=== PATIENT | female | born 1950 | race Caucasian/White ===

== ENCOUNTER 2018-10-21 06:47 | Inpatient (IN) ==
[2018-10-21 07:58] LABS: AGAP 11; ALBUMIN 3.5 g/dL (3.5-5.0); ALKALINE PHOSPHATASE 59 U/L (32-104); BUN 12 mg/dL (8-22); CALCIUM 8.6 mg/dL (8.8-10.2); CHLORIDE 91 mmol/L (98-107); COSMO 275; CREATININE 0.6 mg/dL (0.5-0.9); ESTIMATED GFR > 60; GLUCOSE 296 mg/dL (70-104); GOT 34 U/L (10-30); GPT 26 U/L (10-36); POTASSIUM 4.3 mmol/L (3.5-5.1); SODIUM 132 mmol/L (136-145); TCO2 29 mmol/L (25-35); TOTAL PROTEIN 6.2 g/dL (6.3-8.3)
[2018-10-21] MEDS ORDERED: TORADOL IV ONE (08:05)
[2018-10-21] MEDS ORDERED: NS 500 ML IV ONE (08:05)
[2018-10-21 08:20] LABS: BE 4.6 mmoll (-3.0-3.0); BLOOD TYPE ARTERIAL; HCO3-(ACT) 28.4 mmoll (20.0-26.0); METHB 1.6 % (0.0-1.5); O2HB 91.4 % (95.0-99.0); PCO2(98.6) 46 mmHg (35-45); PO2(98.6) 63 mmHg (60-100); SAMPLE BLOOD; SAO2 95.3 % (95.0-100.0); THB 12.4 g/dL (11.5-17.4); pH(98.6) 7.42 (7.35-7.45)
[2018-10-21 08:23] LABS: ALLEN TEST YES
--- NOTE | 2018-10-21 08:33 | PROVIDER DOCUMENTATION ---
HPI-General Adult - General Chief Complaint: Weakness Stated Complaint: Weakness Time Seen by Provider: 10/21/18 07:31 Source: patient, family Allergies/Adverse Reactions: Patient Allergies Allergy/AdvReac Type Severity Reaction Status Date / Time No Known Allergies Allergy Verified 10/21/18 07:52 Home Medications: Home Medication List Medication Instructions Recorded Confirmed Last Taken Type Aspirin [Aspir-Low] 81 mg PO HS 11/20/17 10/21/18 11/19/17 18:00 History Fenofibrate [Tricor] 48 mg PO HS 11/20/17 10/21/18 11/19/17 18:00 History Furosemide 40 mg PO DAILY 11/20/17 10/21/18 11/19/17 09:00 History Gabapentin 600 mg PO BID 11/20/17 10/21/18 11/19/17 21:00 History Metformin [Glucophage] 500 mg PO BID 11/20/17 10/21/18 11/19/17 18:00 History Metoprolol [Lopressor] 50 mg PO BID 11/20/17 10/21/18 11/19/17 18:00 History Omeprazole 20 mg PO BID 11/20/17 10/21/18 11/19/17 18:00 History Potassium Chloride 8 meq PO DAILY 11/20/17 10/21/18 11/19/17 09:00 History MVI/Folic Acid/Iron 1 each PO DAILY 11/20/17 10/21/18 11/19/17 09:00 History [Precare] Vitamin B Complex [B Complex] 1 each PO DAILY 11/20/17 10/21/18 11/19/17 09:00 History Duloxetine [Cymbalta] 60 mg PO DAILY 10/21/18 10/21/18 Unknown History Losartan [Cozaar] 50 mg PO DAILY 10/21/18 10/21/18 Unknown History Morphine Sulfate 200 mg PO BID 10/21/18 10/21/18 Unknown History Prednisone 3 tab PO DAILY 10/21/18 10/21/18 Unknown History - History of Present Illness -Gen Adult Nature of Presenting Problems: presents with confusional state of 2-3 days duration. hypoxic on arrival . diabetic pt on oral meds. c/o soreness in right lumbar back, moderate cough, sob , has mild fever. Associated Symptoms: reports: cough, fatigue, fever/chills, malaise, muscle aches. denies: shortness of breath, syncope, vomiting Similar Symptoms Previously?: No Recently seen or treated by another doctor?: No - Diabetes Related Context Context: reports: high blood sugar, change in mental status Review of Systems - Adult - REVIEW OF SYSTEMS - ADULT Constitutional: reports: no symptoms reported, fever, fatique Eyes: reports: no symptoms reported Ears, Nose, Mouth & Throat: reports: no symptoms reported Cardiovascular: reports: no symptoms reported Respiratory: reports: no symptoms reported, cough Gastrointestinal: reports: no symptoms reported. denies: vomiting Genitourinary: reports: no symptoms reported Musculoskeletal: reports: no symptoms reported, back pain Integumentary: reports: no symptoms reported Neurological: reports: no symptoms reported Psychiatric: reports: no symptoms reported Endocrine: reports: no symptoms reported, see HPI Hematologic/Lymphatic: reports: no symptoms reported Allergic/Immunologic: reports: no symptoms reported All Other Systems: Reviewed and Negative Past History - Adult - PAST MEDICAL HISTORY-ADULT Review of Records: reports: Old Records Reviewed, Nursing Assessment Review, Medications Reviewed, Social history reviewed & non-contributory. Major Childhood Illnesses: reports: denies history Cardiovascular: reports: CHF, HTN, hyperlipidemia, [place] Respiratory: reports: asthma, COPD Gastrointestinal: reports: denies history Obstetrical/Gynecological: reports: denies history Genitourinary: reports: denies history Musculoskeletal: reports: arthritis (RA), fibromyalgia, other (DJD) Neurological: reports: denies history Psychiatric: reports: anxiety Endocrine/Immune: reports: Diabetes Other Conditions: reports: denies history - PRIOR SURGERIES/PROCEDURES Surgical/Procedure History: reports: colonoscopy, orthopedic (extremity) - IMMUNIZATION STATUS Childhood Immunizations: See Nurse Assessment Flu Vaccine: See Nurse Assessment - FAMILY HISTORY Family History: reviewed, not pertinent Physical Exam-General - PHYSICAL EXAM-ADULT Initial Vital Signs Reviewed: Yes - CONSTITUTIONAL General Appearance: mild distress, anxious, other (mod confusion , mild anxious) - EYES Eyes: PERRL/EOMI, pink conjunctivae - HEAD, EARS, NOSE, MOUTH & THROAT HENMT: moist mucous membranes, normal ENT inspection - NECK Neck: full range of motion, supple - RESPIRATORY Respiratory: lungs clear, normal breath sounds, no respiratory distress - CARDIOVASCULAR Cardiovascular: regular rate, rhythm, no edema, no gallop, no JVD, no murmur - GASTROINTESTINAL (ABDOMEN) Abdominal Exam: non tender, soft - MUSCULOSKELETAL Back Exam: normal inspection, no CVA tenderness. 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 mental lethargic). negative: normal thought process Progress - PLAN OF CARE/RESULTS Progress/Plan/Lab Results: Vital Signs - 8 hr 10/21/18 06:47 10/21/18 08:07 Temperature 99.7 F H Pulse Rate 95 H Respiratory Rate 18 Blood Pressure 166/76 O2 Sat by Pulse Oximetry 94 L Laboratory Results - last 24 hr 10/21/18 10/21/18 10/21/18 07:04 07:23 07:23 Specimen Type Sample Site pH pCO2 pO2 HCO3 Base Excess Oxyhemoglobin ABG O2 Sat (Calculated) ABG O2 Saturation ABG Carboxyhemoglobin ABG Methemoglobin Carlos Test A-a O2 Difference Total Hemoglobin Lactate Blood Gas Modality FiO2 % Sodium Potassium Chloride Carbon Dioxide Anion Gap BUN Creatinine Estimated GFR/1.73 m2 BUN/Creatinine Ratio Glucose POC Glucose 264 H Calculated Osmolality Calcium Magnesium 1.4 L Total Bilirubin AST ALT Alkaline Phosphatase Troponin T < 0.010 Iui-D-Isqslrmyutk Pept Total Protein Albumin Globulin Albumin/Globulin Ratio Plasma Lactate 10/21/18 10/21/18 10/21/18 07:23 07:23 07:23 Specimen Type Sample Site pH pCO2 pO2 HCO3 Base Excess Oxyhemoglobin ABG O2 Sat (Calculated) ABG O2 Saturation ABG Carboxyhemoglobin ABG Methemoglobin Carlos Test A-a O2 Difference Total Hemoglobin Lactate Blood Gas Modality FiO2 % Sodium 132 L Potassium 4.3 Chloride 91 L Carbon Dioxide 29 Anion Gap 11 BUN 12 Creatinine 0.6 Estimated GFR/1.73 m2 > 60 BUN/Creatinine Ratio 20 Glucose 296 H POC Glucose Calculated Osmolality 275 Calcium 8.6 L Magnesium Total Bilirubin 0.70 AST 34 H ALT 26 Alkaline Phosphatase 59 Troponin T Ogi-Q-Xdlhympfneh Pept 512 H Total Protein 6.2 L Albumin 3.5 Globulin 3.0 Albumin/Globulin Ratio 1.0 Plasma Lactate 1.4 10/21/18 08:08 Specimen Type ARTERIAL Sample Site L RADIAL pH 7.42 pCO2 46 H pO2 63 HCO3 28.4 H Base Excess 4.6 H Oxyhemoglobin 91.4 L ABG O2 Sat (Calculated) 16.0 ABG O2 Saturation 95.3 ABG Carboxyhemoglobin 2.50 ABG Methemoglobin 1.6 H Carlos Test YES A-a O2 Difference 29.0 Total Hemoglobin 12.4 Lactate 1.00 Blood Gas Modality ROOM AIR FiO2 % 21.0 Sodium Potassium Chloride Carbon Dioxide Anion Gap BUN Creatinine Estimated GFR/1.73 m2 BUN/Creatinine Ratio Glucose POC Glucose Calculated Osmolality Calcium Magnesium Total Bilirubin AST ALT Alkaline Phosphatase Troponin T Cid-Q-Tkrzawkdcxk Pept Total Protein Albumin Globulin Albumin/Globulin Ratio Plasma Lactate Orders Category Date Time Status Cardiac Monitoring DIRECTED Care 10/21/18 07:31 Active Finger Stick Blood Sugar (ED) DIRECTED Care 10/21/18 07:31 Active Saline Loc NOW Care 10/21/18 07:31 Active CHEST-2 VIEWS [RAD] Stat Exams 10/21/18 07:33 Ordered ABG [RESP] Routine Lab 10/21/18 08:08 Completed AMMONIA [CHEM] Stat Lab 10/21/18 07:58 Received BLOOD CULTURE [BLDCUL] Stat Lab 10/21/18 07:32 Ordered CBC WITH ELECTRONIC DIFF [HEME] Stat Lab 10/21/18 07:38 Ordered COMPREHENSIVE METABOLIC PANEL [CHEM] Stat Lab 10/21/18 07:23 Completed D-DIMER [COAG] Stat Lab 10/21/18 07:23 Received LACTATE, PLASMA [CHEM] Stat Lab 10/21/18 07:23 Completed MAGNESIUM [CHEM] Stat Lab 10/21/18 07:23 Completed PRO B-NATRIURETIC PEPTIDE Stat Lab 10/21/18 07:23 Completed TROPONIN T Stat Lab 10/21/18 07:[address] W/POSS RFLX CULT [URINALYSIS] Stat Lab 10/21/18 07:33 Uncollected URINE DRUG SCREEN PL Stat Lab 10/21/18 07:33 Uncollected 0.9% Sodium Chloride Inj [Ns] 500 ml Med 10/21/18 08:05 Active IV 999 mls/hr Ketorolac [Toradol] Med 10/21/18 08:05 Discontinued 15 mg IV NOW ONE EKG [EKG] Stat Ther 10/21/18 07:32 Ordered ELEV D-DIM: CTA CHEST NL, BNP 512, FLU A + Result Diagrams: 10/21/18 07:23 - REASSESSMENT Reassessment #1 Time Reassessed: 09:56 Status: unchanged (FLU A+, D-DIM UP, : CTA CHEST) Reassessment #2 Status: improving Reassessment Comment: ORIENTED - PERSON, PLACE BUT NOT DATE OR SITUATION - XRAY 1 XRAY Study: Chest Impression: Normal, See EMR Report - CT/MRI 1 CT Study: Cervical Spine, Head Impression: See EMR Report Comparison with other Films: no changes CT Results: CTA CHEST:NO PTE - CONSULTS/PCP/HOSPITALIST Notification #1 *Consult/PCP/Hospitalist*: RODY Time Discussed: 11:40 Consult Disposition: Admit Departure - Departure Date of Disposition Decision: 10/21/18 Time of Disposition Decision: 11:40 DIAGNOSIS: Altered mental status, Hypoxemia, Influenza A, Hypomagnesemia, Weakness Disposition: ADMITTED INPATIENT 09 Certified Medical Emergency: Emergent Condition: Stable Referrals and Follow-Ups: None,PCP [Primary Care Provider] - - Critical Care Note This patient required my direct & personal management of CC.: No Attestation - Physician/ TAWNYA Attestation The physician spent face to face time with patient:: Yes Advanced Practice Provider documentation review:: Supervising physician onsite and consulted in the evaluation and care of this patient. The physician did have a face to face encounter with the patient.
[2018-10-21 08:41] LABS: MODALITY CANNULA
--- NOTE | 2018-10-21 09:01 | Diag Imaging Result Doc PS360 ---
CHEST-2 VIEWS - 10/21/2018 INDICATION: short of breath COMPARISON: 11/20/2017 FINDINGS: The lungs are normally expanded and clear. Heart size and mediastinal contours are normal. No pneumothorax or pleural effusion. IMPRESSION: Negative exam. Electronically signed by Eulogio Matos 10/21/2018 8:59 AM
[2018-10-21 09:09] LABS: BILIRUBIN URINE NEGATIVE (NEGATIVE); BLOOD URINE TRACE (NEGATIVE); CLARITY CLEAR (CLEAR); COLOR YELLOW; KETONE URINE TRACE mg/dL (NEGATIVE); LEUKOCYTES URINE TRACE (NEGATIVE); NITRITE URINE NEGATIVE (NEGATIVE); PH URINE 6.5; PROTEIN URINE 1+(30 mg/dL) mg/dL (NEGATIVE); UROBILINOGEN URINE 1 mg/dL
[2018-10-21 09:15] LABS: INFLUENZA A POSITIVE (NEGATIVE); INFLUENZA B NEGATIVE (NEGATIVE)
[2018-10-21 09:21] LABS: UR AMPHETAMINES QUAL NONE DETECTED (NONE DETECT); UR BARBITUATES QUAL NONE DETECTED (NONE DETECT); UR BENZODIAZEPIN QUAL PRESUMPTIVE POSITIVE (NONE DETECT); UR CANNABINOIDS QUAL NONE DETECTED (NONE DETECT); UR COCAINE QUAL NONE DETECTED (NONE DETECT); UR METHADONE QUAL NONE DETECTED (NONE DETECT); UR METHAMPHETAMINE QUAL NONE DETECTED (NONE DETECT); UR OPIATES QUAL PRESUMPTIVE POSITIVE (NONE DETECT); UR OXYCODONE QUAL NONE DETECTED (NONE DETECT); UR PCP QUAL NONE DETECTED (NONE DETECT); UR PROPOXYPHENE QUAL NONE DETECTED (NONE DETECT); UR TCA QUAL NONE DETECTED (NONE DETECT); URINE BACTERIA 1+ /HFP; URINE EPITHELIAL CELLS >10 /HPF (<10); URINE RBC <10 /HPF (<10); URINE SOURCE CLEAN CATCH; URINE WBC <10 /HPF (<10)
--- NOTE | 2018-10-21 10:28 | ED EKG INTERP ---
This chart was entered by Ledy Salas Scribe, acting as scribe for Abram Mike MD. EKG Interpretation - EKG Time of EKG reading by physician:: 07:14 EKG Read and Signed by:: Abram Mike EKG Interpretation (*Must complete 3 of following elements*): Abnormal Rate: 97 Rhythm: NSR QRS: other (Low volatage QRS. Cannot ruler out Anterior infract, age undetermined) MD Interval: normal Attestation - Physician/ TAWNYA Attestation The physician spent face to face time with patient:: Yes Advanced Practice Provider documentation review:: Supervising physician onsite and consulted in the evaluation and care of this patient. The physician did have a face to face encounter with the patient. This chart was documented by the indicated scribe, (Ledy Salas Scribe) and accurately reflects the services I performed and decisions made by me, Abram Mike MD, as attested by the provider's signature.
--- NOTE | 2018-10-21 11:02 | Diag Imaging Result Doc PS360 ---
EXAM: CT ANGIOGRM PULMONARY ARTERIES - 10/21/2018 HISTORY: SOB, CONFUSION, D-DIM TECHNIQUE: CT angiogram pulmonary arteries with intravenous contrast. Axial, 2-D coronal MIP, and 3-D MIP images are obtained. COMPARISON: None. FINDINGS: There are no filling defects identified in the pulmonary arteries. There is no indication of aortic dissection. There are atheromatous changes noted in the thoracic aorta similar to prior. There is stable left lower lobe calcified granuloma from old granulomatous disease. There is mild interstitial scarring/fibrosis, without substantial honeycombing, similar to prior. There is no consolidation, pleural effusion, or pneumothorax identified. There are a few mildly prominent mediastinal and right hilar lymph nodes which are more conspicuous compared to prior, although this could be exaggerated by differences in technical factors between the exams. There is prominence of the right thyroid lobe similar to prior. Included sections of the upper abdomen show fatty infiltration of the visualized liver similar to prior. IMPRESSION: No evidence of pulmonary embolism. Mild interstitial scarring/fibrosis. No discrete pneumonia. Mildly prominent right hilar and mediastinal lymph nodes. Atheromatous changes in the thoracic aorta, prominent right thyroid lobe, and fatty infiltration of visualized liver similar to prior. Electronically signed by Isaac Alcala 10/21/2018 10:59 AM
[2018-10-21] MEDS ORDERED: MAGNESIUM SULFATE 2 GM/S.W.I. 2 GM/50 ML IVPB IV ONE (11:15)
--- NOTE | 2018-10-21 12:04 | EKG Report ---
Test Performed on : 10/21/2018 07:11:39 AM Test Reason : confusion Blood Pressure : / mmHG Vent. Rate : 097 BPM Atrial Rate : 097 BPM P-R Int : 152 ms QRS Dur : 092 ms QT Int : 340 ms P-R-T Axes : 000 -18 027 degrees QTc Int : 431 ms Normal sinus rhythm. Low voltage QRS Cannot rule out Anterior infarct (cited on or before 23-FEB-2016) Abnormal ECG When compared with ECG of 20-NOV-2017 11:34, Questionable change in initial forces of Lateral leads Nonspecific T wave abnormality no longer evident in Anterolateral leads Unconfirmed Result
[2018-10-21] MEDS ORDERED: TYLENOL PO PRN ×2 (13:04→13:23)
[2018-10-21] MEDS ORDERED: ZOFRAN IV PRN (13:23)
[2018-10-21] MEDS ORDERED: DUONEB (A & A) INH PRN (13:41)
[2018-10-21] MEDS: MORPHINE IV PRN ×2 (14:15→20:45)
[2018-10-21] MEDS: TAMIFLU PO SCH ×2 (14:16→21:02)
[2018-10-21] MEDS: ROCEPHIN 1 GM in NS 50 ML IV SCH (14:16)
--- NOTE | 2018-10-21 15:28 | HISTORY AND PHYSICAL ---
PRIMARY CARE PHYSICIAN: Dr. Anurag Weathers MD CHIEF COMPLAINT: Weakness, shortness of breath, nonproductive cough, subjective fever, chills, and per family some confusion over the last 2 to 3 days. HISTORY OF PRESENT ILLNESS: Ms. Oropeza is a 67-year-old female with history of COPD, hypertension, hyperlipidemia, diabetes mellitus, arthritis, and coronary artery disease who reported to the ED with weakness, shortness of breath, and some mental status changes. Workup in the ED revealed flu positive. She had an elevated D-dimer. Pulmonary arteriogram was negative. Chest x-ray was negative for any pneumonia. She currently has mild fever at 99.3. CBC is still currently pending for unknown reason. She is mildly hyponatremic with elevated blood glucose at 286, magnesium of 1.4. She was given IV Mag. She was also noted to be hypoxemic upon arrival. However, the only oxygen saturation we have noted is after she was on nasal cannula. She will be admitted to the medical telemetry floor. We will symptomatically treat her for the flu, and recheck her Mag level in the morning as well as sodium. Continue with IV fluids. PAST MEDICAL HISTORY: 1. Diabetes mellitus. 2. COPD. 3. History of coronary artery disease. 4. Hypertension. 5. Arthritis. PAST SURGICAL HISTORY: 1. Colonoscopy. 2. Knee arthroscopy. SOCIAL HISTORY: No tobacco, alcohol or illicit drug use. ALLERGIES: No known drug allergies. HOME MEDICATIONS: 1. Aspirin 81 mg p.o. daily. 2. Cymbalta 60 mg p.o. daily. 3. Tricor 48 mg p.o. at bedtime. 4. Lasix 40 mg p.o. daily. 5. Gabapentin 600 mg p.o. b.i.d. 6. Cozaar 50 mg p.o. daily. 7. Glucophage 500 mg p.o. b.i.d. 8. Lopressor 50 mg p.o. b.i.d. 9. Morphine sulfate 200 mg p.o. b.i.d. 10. Prilosec 20 mg p.o. b.i.d. 11. Potassium chloride 8 mEq p.o. daily. 12. Prednisone 30 tabs p.o. daily. 13. vitamin 1 each p.o. daily. 14. Vitamin B complex 1 each p.o. daily. FAMILY HISTORY: Positive for father with congestive heart failure. REVIEW OF SYSTEMS: A 14 point review of systems completely negative except for those mentioned in HPI. Denies any nausea, vomiting, or diarrhea. No chest pain, shortness of breath with activity. No dysuria. No bright red or tarry stools. PHYSICAL EXAMINATION: VITAL SIGNS: Temperature 99.3 degrees, heart rate 98, respirations 22, blood pressure 115/77, and O2 is 99% on nasal cannula. GENERAL: Ms. Oropeza is a 67-year-old female, who was up in the bathroom on the medical floor having a bowel movement. She has put herself back to bed. She is in no acute distress, a little short of breath with activity. HEENT: Atraumatic, normocephalic. PERRL. NECK: Supple. Trachea midline. CV: S1, S2 appreciated. No murmurs, gallops, or rubs noted. RESPIRATORY: Lung sounds clear. Chest with nonlabored breathing. GI: Soft, nontender, and nondistended. Positive bowel sounds in 4 quadrants. Bilateral lower extremities negative for edema. No signs of clubbing or cyanosis. SKIN: Warm, dry, and intact. NEUROLOGIC: No focal deficits noted. Patient is alert and oriented. Follows commands. Moves all extremities. DIAGNOSTIC DATA: Chest x-ray negative exam. EKG normal sinus rhythm. Pulmonary arteriogram with no evidence of PE, mild interstitial scarring or fibrosis. No discrete pneumonia. Mild right hilar and mediastinal lymph nodes. Atheromatous changes in the thoracic aorta, prominent right thyroid lobe and fatty infiltration of the visualized liver similar to prior. DISCHARGE DIAGNOSES: 1. Flu A positive.. We will continue to treat her symptomatically. We will initiate Tamiflu 75 mg p.o. b.i.d. as well as started on IV ceftriaxone. She has 1+ bacteria in her urine. Again, we are awaiting WBCs. 2. Diabetes mellitus. We will continue diabetic diet. Pattern blood sugars with sliding scale insulin. 3. Hypoxemic as reported per ED. However, we do not have any hypoxemia reported in the computer. We will continue on supplemental O2. 4. Hypertension. Continue home medications. 5. Arthritis. Continue pain medications. 6. History of coronary artery disease. We will continue home medicines. 7. Elevated D-dimer. Patient was ruled out with PE with pulmonary arteriogram. 8. Mild hyponatremia. We will continue with IV fluids, and elevated D-dimer. We will follow up bilateral lower extremity Doppler's. 9. Hypomagnesium treated will recheck in am 10. Further recommendations to follow physician evaluation, laboratory, and diagnostic data. Dictated by ALBINO Downing for Preet Guerrero MD cc: Preet Guerrero MD MTDD
[2018-10-21] MEDS: DUONEB (A & A) INH SCH ×2 (15:30→20:04)
--- NOTE | 2018-10-21 16:39 | Extremity Venous Study ---
EXAM: Venous U/S Bilateral Legs - 10/21/2018 HISTORY: elevated d-dimer TECHNIQUE: Bilateral lower extremity Doppler venous ultrasound COMPARISON: None. FINDINGS: The deep veins of the bilateral lower extremities demonstrate flow, with compressibility and augmentation. There are no filling defects identified. IMPRESSION: No evidence of deep venous thrombosis in either lower extremity. Electronically signed by Isaac Alcala 10/21/2018 4:37 PM
[2018-10-21] MEDS: HUMALOG (PARKWAY) SUBQ SCH ×2 (18:54→22:04)
[2018-10-21] MEDS: PRILOSEC PO SCH (21:01)
[2018-10-21] MEDS: NEURONTIN PO SCH (21:02)
[2018-10-21] MEDS: ASPIRIN EC PO SCH (21:03)
[2018-10-21] MEDS: TRICOR PO SCH (21:04)
--- NOTE | 2018-10-21 21:39 | HISTORY AND PHYSICAL ---
ADDENDUM: Patient seen and examined by myself. Full note dictated and discussed with nurse practitioner. Patient presented to the hospital, subsequently diagnosed with flu A positive. Although she has been sick for 3 days and certainly is pushing the limits of Tamiflu, given the severity of her illness and the fact that she is not actually sure when her symptoms started, we will start her on Tamiflu and will start Rocephin as well. We will control her diabetes, place her on oxygen, and further orders as needed. cc: Preet Guerrero MD
[2018-10-21 22:36] LABS: BASO# 0.06 X1000 (0.0-0.2); BASO% 0.6 % (0.0-0.8); EOS# 0.27 X1000 (0.0-0.7); EOS% 2.7 % (0.0-10.0); HEMATOCRIT 38.1 % (37.0-47.0); HEMOGLOBIN 12.2 g/dL (12.0-16.0); IMM GRAN# 0.01 X1000 (0.0-0.04); IMM GRAN% 0.1 % (0.0-0.5); LYMPH# 1.32 X1000 (1.2-3.4); LYMPH% 13.3 % (20.5-51.1); MCH 27.2 PG (27-31); MONO# 1.04 X1000 (0.11-0.59); MONO% 10.5 % (1.7-9.3); MPV 10.5 FL (7.4-10.4); NEUT# 7.19 X1000 (1.4-6.5); NEUT% 72.8 % (42.2-75.2); PLT 253 X1000 (130-400); RBC 4.48 XMIL (4.2-5.4); RDW 13.2 % (11.5-14.5); WBC 9.89 X1000 (4.8-10.8)
[2018-10-22] MEDS: DUONEB (A & A) INH SCH ×7 (04:02→23:42)
[2018-10-22] MEDS ORDERED: XANAX PO PRN (06:31)
[2018-10-22] MEDS ORDERED: BUSPAR PO PRN (06:31)
[2018-10-22] MEDS: LOPRESSOR PO SCH ×3 (07:03→20:58)
[2018-10-22 07:27] LABS: BASO# 0.01 X1000 (0.0-0.2); BASO% 0.2 % (0.0-0.8); EOS# 0.09 X1000 (0.0-0.7); EOS% 1.8 % (0.0-10.0); HEMOGLOBIN 11.1 g/dL (12.0-16.0); IMM GRAN# 0.01 X1000 (0.0-0.04); IMM GRAN% 0.2 % (0.0-0.5); LYMPH# 1.39 X1000 (1.2-3.4); LYMPH% 28.5 % (20.5-51.1); MCH 26.7 PG (27-31); MCHC 31.7 g/dL (33-37); MCV 84.3 FL (81-99); MONO# 0.77 X1000 (0.11-0.59); MONO% 15.8 % (1.7-9.3); NEUT# 2.61 X1000 (1.4-6.5); NEUT% 53.5 % (42.2-75.2); PLT 204 X1000 (130-400); RBC 4.15 XMIL (4.2-5.4); WBC 4.88 X1000 (4.8-10.8)
--- NOTE | 2018-10-22 07:31 | Diag Imaging Result Doc PS360 ---
EXAM: CHEST-PORTABLE - 10/22/2018 HISTORY: follow up TECHNIQUE: Portable chest COMPARISON: 11/18/2018 FINDINGS: Heart size appears in the the upper range of normal. There is mild interstitial scarring/fibrosis. There is no dense consolidation, substantial pleural effusion, or pneumothorax identified. IMPRESSION: Mild interstitial scarring/fibrosis. No discrete acute changes. Electronically signed by Isaac Alcala 10/22/2018 7:28 AM
[2018-10-22 07:52] LABS: AGAP 11; BUN 6 mg/dL (8-22); CALCIUM 8.4 mg/dL (8.8-10.2); CHLORIDE 98 mmol/L (98-107); COSMO 281; CREATININE 0.4 mg/dL (0.5-0.9); ESTIMATED GFR > 60; GLUCOSE 266 mg/dL (70-104); MAGNESIUM 1.7 mg/dL (1.5-2.7); POTASSIUM 3.8 mmol/L (3.5-5.1); SODIUM 137 mmol/L (136-145); TCO2 28 mmol/L (25-35)
[2018-10-22] MEDS: HUMALOG (PARKWAY) SUBQ SCH ×4 (08:05→20:59)
[2018-10-22] MEDS: MORPHINE IV PRN ×4 (08:20→20:58)
[2018-10-22] MEDS: PRILOSEC PO SCH ×2 (08:20→20:58)
[2018-10-22] MEDS: ZOFRAN IV PRN ×3 (08:21→16:05)
[2018-10-22] MEDS: CYMBALTA PO SCH (10:23)
[2018-10-22] MEDS: TAMIFLU PO SCH ×2 (10:23→20:58)
[2018-10-22] MEDS: PREDNISONE PO SCH (10:23)
[2018-10-22] MEDS: NEURONTIN PO SCH ×2 (10:24→20:58)
[2018-10-22] MEDS: COZAAR PO SCH (10:24)
[2018-10-22] MEDS: KLOR-CON PO SCH (10:24)
[2018-10-22] MEDS: LASIX PO SCH (10:24)
[2018-10-22] MEDS: ROCEPHIN 1 GM in NS 50 ML IV SCH (14:04)
[2018-10-22] MEDS: MYCOSTATIN SUSP PO SCH ×2 (16:05→20:58)
[2018-10-22] MEDS: TRICOR PO SCH (20:58)
[2018-10-22] MEDS: ASPIRIN EC PO SCH (20:58)
--- NOTE | 2018-10-23 00:35 | PROGRESS NOTE ---
DATE: 10/22/2018 SUBJECTIVE: Patient notes that overall she is feeling a little bit better. She is still having cough and congestion, still having some diarrhea but notes that she has had diarrhea off and on for the past year or so. Denies any abdominal pain. Denies any recent fevers. Notes that her muscle aches are improving. PHYSICAL EXAMINATION: Vital Signs: T-max 100.8 degrees, T current 99 degrees, pulse 102 to 117, BP 122/58. General: Patient is awake, alert. She is very pleasant to talk with. She is in much less distress today than she was yesterday. HEENT: Normocephalic. Neck: Supple. Cardiovascular: Regular rate. No murmurs. Chest: Relatively clear and unlabored. Abdomen: Soft, nondistended, nontender. Extremities: Moves all extremities. ASSESSMENT: 1. Flu A positive. 2. Diabetes. 3. Hypoxemia. 4. Hypertension. 5. Chronic diarrhea. 6. Arthritis. 7. Known coronary artery disease. PLAN: We will continue to follow. Continue Tamiflu. Hopefully home over the next 1 or 2 days. cc: Preet Guerrero MD
[2018-10-23] MEDS: DUONEB (A & A) INH SCH ×6 (03:28→22:43)
[2018-10-23] MEDS: PRILOSEC PO SCH ×2 (06:36→20:18)
[2018-10-23] MEDS: HUMALOG (PARKWAY) SUBQ SCH ×4 (06:36→23:17)
[2018-10-23] MEDS: MORPHINE IV PRN ×3 (06:42→20:19)
[2018-10-23] MEDS ORDERED: VANCOMYCIN IV PER PHARMACY MISC SCH (07:15)
[2018-10-23] MEDS ORDERED: VANCOMYCIN 2,500 MG in NS 500 ML IV ONE (08:00)
[2018-10-23] MEDS: KLOR-CON PO SCH (09:16)
[2018-10-23] MEDS: PREDNISONE PO SCH ×2 (09:16→09:19)
[2018-10-23] MEDS: CYMBALTA PO SCH (09:17)
[2018-10-23] MEDS: TAMIFLU PO SCH ×2 (09:17→20:19)
[2018-10-23] MEDS: COZAAR PO SCH (09:17)
[2018-10-23] MEDS: LASIX PO SCH (09:17)
[2018-10-23] MEDS: NEURONTIN PO SCH ×2 (09:17→20:18)
[2018-10-23] MEDS: GLUCOPHAGE PO SCH ×2 (09:17→17:51)
[2018-10-23] MEDS: LOPRESSOR PO SCH ×2 (09:20→20:19)
[2018-10-23] MEDS: MYCOSTATIN SUSP PO SCH ×4 (09:20→20:18)
[2018-10-23] MEDS: ABREVA CREAM TOP SCH ×2 (17:46→23:17)
[2018-10-23] MEDS: ASPIRIN EC PO SCH (20:18)
[2018-10-23] MEDS: TRICOR PO SCH (20:19)
--- NOTE | 2018-10-23 22:27 | PROGRESS NOTE ---
DATE: 10/23/2018 SUBJECTIVE: Patient overall notes that she is feeling better, having less cough and congestion, less diarrhea although notes that she has chronic diarrhea. Denies any fevers or chills currently. PHYSICAL EXAMINATION: Vital Signs: T-max 97.8, pulse 78, respiratory 20, BP 103/48. General: Patient is awake. She is in no current respiratory distress. Very pleasant to talk with. HEENT: Normocephalic. Neck: Supple. CARDIOVASCULAR: Regular rate. No murmurs. Chest: Clear, nonlabored. Abdomen: Soft. Extremities: Moves all extremities. Neurologic: No changes. Skin: Warm, dry, no rashes. ASSESSMENT: 1. Influenza type A. 2. Gram-positive cocci in her urine. 3. Diabetes. 4. Hypoxic respiratory failure, improved. 5. Hypertension. 6. Chronic diarrhea. PLAN: We will continue patient in the hospital. We will await final urine culture results. Hopefully, she can discharge home over the next day or two. cc: Preet Guerrero MD
[2018-10-24] MEDS ORDERED: VANCOMYCIN 2,000 MG in NS 500 ML IV SCH (02:00)
[2018-10-24] MEDS: DUONEB (A & A) INH SCH ×4 (03:54→16:29)
[2018-10-24] MEDS: MORPHINE IV PRN ×2 (04:00→09:42)
[2018-10-24] MEDS: PRILOSEC PO SCH (06:33)
[2018-10-24] MEDS: HUMALOG (PARKWAY) SUBQ SCH ×2 (06:35→12:33)
[2018-10-24 07:56] VITALS: BP 134/55
[2018-10-24] MEDS: CYMBALTA PO SCH (09:40)
[2018-10-24] MEDS: LOPRESSOR PO SCH (09:41)
[2018-10-24] MEDS: GLUCOPHAGE PO SCH (09:41)
[2018-10-24] MEDS: LASIX PO SCH (09:41)
[2018-10-24] MEDS: MYCOSTATIN SUSP PO SCH ×2 (09:41→16:07)
[2018-10-24] MEDS: NEURONTIN PO SCH (09:41)
[2018-10-24] MEDS: PREDNISONE PO SCH (09:41)
[2018-10-24] MEDS: COZAAR PO SCH (09:42)
[2018-10-24] MEDS: TAMIFLU PO SCH (09:42)
[2018-10-24] MEDS: KLOR-CON PO SCH (09:42)
[2018-10-24] MEDS: ABREVA CREAM TOP SCH ×2 (09:48→16:07)
[2018-10-24] MEDS ORDERED: AMOXIL PO SCH (15:00)
--- NOTE | 2018-10-25 01:26 | DISCHARGE SUMMARY ---
ADMISSION DATE: 10/21/2018 DISCHARGE DATE: 10/24/2018 DISCHARGE DIAGNOSES: 1. Sepsis, resolved. 2. Diarrhea, improved. 3. Enterococcus urinary tract infection, sensitive to penicillin. 4. Flu A positive, improved. 5. Diabetes. 6. Hypoxic respiratory failure, acute, resolved. 7. Hypertension. CONSULTATIONS: None. PROCEDURES: None. BRIEF HOSPITAL COURSE: The patient is a 67-year-old female who thankfully has overall improved quite well. She currently is in no respiratory distress. She is feeling better. Notes that she is still having some mild diarrhea, but states this is chronic for her. States it is improved. She will continue to follow up with her primary care. Discussed with patient that she does have the flu and needs to continue Tamiflu for the next 3 days at home. She also has Enterococcus urinary tract infection. We will continue penicillin at home for this. Thankfully, she is feeling better and will be discharged home. DISPOSITION: Patient will be discharged home. She will follow up in 1 week to recheck her labs. We will continue antibiotics, Tamiflu and breathing treatments as needed. Greater than 30 minutes was spent in total care. cc: Preet Guerrero MD
== END 2018-10-24 16:30 | disposition left against medical advice (07) | DRG 871 ==
LOC: P.ED 06:47 → INTOOBSV 12:35 → OBSVTOIN 12:35 → P.MEDSURG 12:35
PROVIDERS: ATTEND Family Medicine
CPT/HCPCS: 71010; 71020; 71045; 71046; 71275; 80048; 80053; 80104; 80301; 80305; 81001; 82140; 82805; 82948; 83605; 83735; 83880; 84484; 85025; 85379; 87040; 87077; 87088; 87186; 87275; 87276; 87804; 93005; 93970; 94640; 94761; 96361; 96365; 96375; 99285; A9270; G0431; G0434; G0477; J0696; J1815; J1885; J2270; J2405; J3370; J3475; J7040; J7506; J7512; Q9967; XXXXX

== ENCOUNTER 2019-02-14 05:47 | Inpatient (IN) ==
[2019-02-14] MEDS ORDERED: DUONEB (A & A) INH ONE (06:08)
--- NOTE | 2019-02-14 06:45 | PROVIDER DOCUMENTATION ---
HPI-Respiratory General - General Chief Complaint: Generalized Pain Stated Complaint: PALPITATIONS Time Seen by Provider: 02/14/19 06:16 Allergies/Adverse Reactions: Patient Allergies Allergy/AdvReac Type Severity Reaction Status Date / Time No Known Allergies Allergy Verified 10/21/18 07:52 Home Medications: Home Medication List Medication Instructions Recorded Confirmed Last Taken Type Aspirin [Aspir-Low] 81 mg PO HS 11/20/17 02/14/19 11/19/17 18:00 History Fenofibrate [Tricor] 48 mg PO HS 11/20/17 02/14/19 11/19/17 18:00 History Furosemide 40 mg PO DAILY 11/20/17 02/14/19 11/19/17 09:00 History Gabapentin 600 mg PO BID 11/20/17 02/14/19 11/19/17 21:00 History Metformin [Glucophage] 500 mg PO TID 11/20/17 02/14/19 11/19/17 18:00 History Metoprolol [Lopressor] 50 mg PO BID 11/20/17 02/14/19 11/19/17 18:00 History Omeprazole 40 mg PO DAILY@0600 11/20/17 02/14/19 11/19/17 18:00 History Potassium Chloride 8 meq PO DAILY 11/20/17 10/21/18 11/19/17 09:00 History Alprazolam 1 mg PO BID 10/21/18 02/14/19 Unknown History Duloxetine [Cymbalta] 60 mg PO DAILY 10/21/18 02/14/19 Unknown History Losartan [Cozaar] 50 mg PO DAILY 10/21/18 02/14/19 Unknown History Prednisone 15 mg PO DAILY 10/21/18 02/14/19 Unknown History Hydrocodone Bit/Acetaminophen 1 tab PO TID PRN PRN 02/14/19 02/14/19 Unknown History [Hydrocodon-Acetaminophn 10325] - History of Present Illness-Resp Nature of Presenting Problem: complaining of shortness of breath last night. now aching all over, patient was coughing with flu like symptoms aching and weakness, chest tightness and fever. Quality of Pain: reports: aching Severity in ED: reports: moderate Onset/Duration: reports: gradual, last night Timing: reports: still present Cough Quality/Degree: reports: moderate Modifying Factors: improves with: albuterol inhaler, albuterol nebulizer Associated Symptoms: reports: cough, muscle/bodyaches, shortness of breath Similar Symptoms Previously?: Yes Review of Systems - Adult - REVIEW OF SYSTEMS - ADULT Constitutional: reports: sherley. denies: fever Eyes: reports: no symptoms reported Ears, Nose, Mouth & Throat: reports: no symptoms reported Cardiovascular: reports: no symptoms reported Respiratory: reports: see HPI, chronic cough, cough, pleurisy, shortness of breath Gastrointestinal: reports: no symptoms reported Genitourinary: reports: no symptoms reported Musculoskeletal: reports: no symptoms reported Integumentary: reports: no symptoms reported Neurological: reports: no symptoms reported Psychiatric: reports: no symptoms reported Endocrine: reports: no symptoms reported Hematologic/Lymphatic: reports: no symptoms reported Allergic/Immunologic: reports: no symptoms reported Past History - Adult - PAST MEDICAL HISTORY-ADULT Review of Records: reports: Nursing Assessment Review Major Childhood Illnesses: reports: denies history Cardiovascular: reports: CHF, HTN, hyperlipidemia, [place] Respiratory: reports: asthma, COPD Gastrointestinal: reports: denies history Obstetrical/Gynecological: reports: denies history Genitourinary: reports: denies history Musculoskeletal: reports: arthritis (RA), fibromyalgia, other (DJD) Neurological: reports: denies history Psychiatric: reports: anxiety Endocrine/Immune: reports: Diabetes Other Conditions: reports: denies history - PRIOR SURGERIES/PROCEDURES Surgical/Procedure History: reports: colonoscopy, orthopedic (extremity) - IMMUNIZATION STATUS Childhood Immunizations: See Nurse Assessment Flu Vaccine: See Nurse Assessment - FAMILY HISTORY Family History: reviewed, not pertinent Physical Exam-General - PHYSICAL EXAM-ADULT Initial Vital Signs Reviewed: Yes - CONSTITUTIONAL General Appearance: alert - EYES Eyes: PERRL/EOMI - HEAD, EARS, NOSE, MOUTH & THROAT HENMT: normocephalic/atraumatic - NECK Neck: non-tender, supple - RESPIRATORY Respiratory: respiratory distress, prolonged expiration - CARDIOVASCULAR Cardiovascular: no edema, no gallop, no JVD, tachycardia - GASTROINTESTINAL (ABDOMEN) Abdominal Exam: non tender, soft - LYMPHATIC Lymphatic: no adenopathy - MUSCULOSKELETAL Back Exam: normal inspection, no CVA tenderness, no vertebral tenderness Extremity: normal range of motion, non-tender, normal gait, normal inspection, no pedal edema - SKIN Integumentary: normal color, warm/dry - NEUROLOGIC Neurologic: operational communication chief II-XII nml as tested, grossly normal - PSYCHIATRIC Psych/Mental Status: normal mood/affect Progress - PLAN OF CARE/RESULTS Progress/Plan/Lab Results: Laboratory Results - last 24 hr 02/14/19 02/14/19 02/14/19 06:58 06:58 06:58 WBC 18.34 H RBC 4.57 Hgb 13.3 Hct 39.6 MCV 86.7 MCH 29.1 MCHC 33.6 RDW Std Deviation 13.6 Plt Count 222 MPV 11.3 H Immature Gran % (Auto) 0.2 Neut % (Auto) 65.9 Lymph % (Auto) 21.3 [place] % (Auto) 9.2 Eos % (Auto) 3.1 Baso % (Auto) 0.3 Immature Gran # (Auto) 0.04 Neut # (Auto) 12.08 H Lymph # (Auto) 3.91 H [place] # (Auto) 1.69 H Eos # (Auto) 0.56 Baso # (Auto) 0.06 PT INR PTT (Actin FS) Sodium 133 L Potassium 4.3 Chloride 92 L Carbon Dioxide 29 Anion Gap 13 BUN 12 Creatinine 0.6 Estimated GFR/1.73 m2 > 60 BUN/Creatinine Ratio 20 Glucose 217 H Calculated Osmolality 273 Calcium 9.6 Total Bilirubin 0.70 AST 47 H ALT 31 Alkaline Phosphatase 78 Creatine Kinase Troponin T Total Protein 7.2 Albumin 4.0 Globulin 3.0 Albumin/Globulin Ratio 1.0 Plasma Lactate Cancelled 02/14/19 02/14/19 02/14/19 06:58 06:58 06:58 WBC RBC Hgb Hct MCV MCH MCHC RDW Std Deviation Plt Count MPV Immature Gran % (Auto) Neut % (Auto) Lymph % (Auto) [place] % (Auto) Eos % (Auto) Baso % (Auto) Immature Gran # (Auto) Neut # (Auto) Lymph # (Auto) [place] # (Auto) Eos # (Auto) Baso # (Auto) PT 12.4 INR 0.88 PTT (Actin FS) 27.6 Sodium Potassium Chloride Carbon Dioxide Anion Gap BUN Creatinine Estimated GFR/1.73 m2 BUN/Creatinine Ratio Glucose Calculated Osmolality Calcium Total Bilirubin AST ALT Alkaline Phosphatase Creatine Kinase 47 Troponin T < 0.010 Total Protein Albumin Globulin Albumin/Globulin Ratio Plasma Lactate 02/14/19 06:58 WBC RBC Hgb Hct MCV MCH MCHC RDW Std Deviation Plt Count MPV Immature Gran % (Auto) Neut % (Auto) Lymph % (Auto) [place] % (Auto) Eos % (Auto) Baso % (Auto) Immature Gran # (Auto) Neut # (Auto) Lymph # (Auto) [place] # (Auto) Eos # (Auto) Baso # (Auto) PT INR PTT (Actin FS) Sodium Potassium Chloride Carbon Dioxide Anion Gap BUN Creatinine Estimated GFR/1.73 m2 BUN/Creatinine Ratio Glucose Calculated Osmolality Calcium Total Bilirubin AST ALT Alkaline Phosphatase Creatine Kinase Troponin T Total Protein Albumin Globulin Albumin/Globulin Ratio Plasma Lactate 2.5 H Orders Category Date Time Status Admit - [facility] Routine AdmDCTranf 02/14/19 09:19 Active Activity - Bed Rest with BRP ORDERED Care 02/14/19 09:19 Active Cardiac Monitoring DIRECTED Care 02/14/19 07:29 Active IV Insertion ORDERED Care 02/14/19 07:29 Active Notify MD of + Sepsis Screen NOW Care 02/14/19 07:29 Active Notify Physician As Ordered Care 02/14/19 07:29 Active Oxygen Therapy- ED Nursing DIRECTED Care 02/14/19 06:07 Completed Saline Loc NOW Care 02/14/19 06:38 Active Vital Signs Order ARRIVAL TO ROOM Care 02/14/19 09:19 Active Z-Document. for Tele Applied ORDERED Care 02/14/19 09:19 Active Regular Diet Diet 02/14/19 09:19 Active CHEST-PORTABLE [RAD] Stat Exams 02/14/19 06:39 Completed ABG [RESP] Routine Lab 02/14/19 06:45 Completed BLOOD CULTURE [BLDCUL] Stat Lab 02/14/19 06:54 Results CBC WITH DIFF [HEME] Stat Lab 02/14/19 06:58 Completed CK PROFILE [SP CHEM] Stat Lab 02/14/19 06:58 Completed COMPREHENSIVE METABOLIC PANEL [CHEM] Stat Lab 02/14/19 06:58 Completed LACTATE, PLASMA [CHEM] Lab 02/14/19 11:45 Completed LACTATE, PLASMA [CHEM] Lab 02/14/19 14:25 Completed LACTATE, PLASMA [CHEM] Q3H Lab 02/14/19 06:58 Completed PROTIME WITH INR [COAG] Stat Lab 02/14/19 06:58 Completed PTT [COAG] Stat Lab 02/14/19 06:58 Completed TROPONIN T Stat Lab 02/14/19 06:[address] W/POSS RFLX CULT [URINALYSIS] Stat Lab 02/14/19 10:14 Completed 0.9% Sodium Chloride Inj [Ns] 1,000 ml Med 02/14/19 07:46 Discontinued IV 999 mls/hr 0.9% Sodium Chloride Inj [Ns] 1,000 ml Med 02/14/19 09:19 Discontinued IV As Directed mls/hr Albuterol 2.5MG/Ipratrop 0.5MG [Duoneb (A & A)] Med 02/14/19 06:08 Discontinued 3 ml INH NOW ONE CefTRIAXONE [Rocephin] 1 gm Med 02/14/19 06:46 Discontinued 0.9% Sodium Chloride Inj [Ns] 50 ml IV NOW Methylprednisolone Sod Succ [Solu-Medrol] Med 02/14/19 06:46 Discontinued 125 mg IV NOW ONE Aerosol Treatments Routine Oth 02/14/19 06:08 Completed Aerosol Treatments Routine Oth 02/14/19 09:19 Completed Aerosol Treatments Stat Oth 02/14/19 06:07 Completed Aerosol Treatments Stat Oth 02/14/19 06:08 Completed Aerosol Treatments Stat Oth 02/14/19 09:19 Completed Asthma/COPD (Adult) Stat Oth 02/14/19 06:07 Completed Oxygen Device Stat Oth 02/14/19 07:29 Completed Oxygen Device Stat Oth 02/14/19 09:19 Completed Telemetry [OM.EQ] Routine Oth 02/14/19 09:19 Completed EKG [EKG] Routine Ther 02/14/19 08:01 Draft Transfer/Admit Order [TRANSFER] Routine Transfer 02/14/19 08:01 Completed Result Diagrams: 02/15/19 06:03 02/15/19 06:03 - EKG 1 Time of EKG reading by physician:: 08:38 EKG Read and Signed by:: Jacob Guo EKG Interpretation (*Must complete 3 of following elements*): Normal Rate: 100 Rhythm: sinus [place]: left QRS: normal LA Interval: normal ST Wave: normal - XRAY 1 XRAY Study: Chest Impression: Abnormal (fibrosis) - CHANGE OF SHIFT REPORT (ED Provider) 1 Report Given and Care Transferred to:: Dr Guo Time of Transfer: 07:00 Items Pending: Labs, XRAY Results Departure - Departure Date of Disposition Decision: 02/14/19 Time of Disposition Decision: 09:00 DIAGNOSIS: COPD exacerbation Disposition: ADMITTED INPATIENT 09 Certified Medical Emergency: Emergent Condition: Poor - Critical Care Note This patient required my direct & personal management of CC.: No Attestation - Physician/ TAWNYA Attestation Patient care was provided by Advanced Practice Provider:: No The physician spent face to face time with patient:: Yes Advanced Practice Provider documentation review:: Supervising physician onsite and consulted in the evaluation and care of this patient. The physician did have a face to face encounter with the patient.
[2019-02-14] MEDS ORDERED: SOLU-MEDROL IV ONE (06:46)
[2019-02-14] MEDS ORDERED: ROCEPHIN 1 GM in NS 50 ML IV ONE (06:46)
[2019-02-14 06:58] LABS: BE 4.9 mmoll (-3.0-3.0); BLOOD TYPE ARTERIAL; HCO3-(ACT) 28.5 mmoll (20.0-26.0); METHB 1.4 % (0.0-1.5); O2(CT) 17.2 mL/dL (15.0-23.0); PCO2(98.6) 41 mmHg (35-45); PO2(98.6) 55 mmHg (60-100); SAMPLE BLOOD; SAO2 92.9 % (95.0-100.0); THB 13.7 g/dL (11.5-17.4)
[2019-02-14 07:01] LABS: ALLEN TEST YES; MODALITY ROOM AIR; pH(98.6) 7.46 (7.35-7.45)
[2019-02-14 07:02] LABS: O2HB 89.5 % (95.0-99.0)
--- NOTE | 2019-02-14 07:31 | Diag Imaging Result Doc PS360 ---
EXAM: CHEST-PORTABLE - 02/14/2019 HISTORY: shortness of breath TECHNIQUE: Portable chest COMPARISON: 10/22/2018 FINDINGS: Heart size appears normal. Inspiration is mildly shallow. There is mild interstitial fibrosis/scarring similar to prior. There are no other acute changes identified. IMPRESSION: Mildly shallow inspiration. Mild interstitial scarring/fibrosis. No other acute changes. Electronically signed by Isaac Alcala 02/14/2019 7:29 AM
[2019-02-14 07:38] LABS: AGAP 13; BUN 12 mg/dL (8-22); CHLORIDE 92 mmol/L (98-107); COSMO 273; CREATININE 0.6 mg/dL (0.5-0.9); ESTIMATED GFR > 60; GLUCOSE 217 mg/dL (70-104); POTASSIUM 4.3 mmol/L (3.5-5.1); SODIUM 133 mmol/L (136-145); TCO2 29 mmol/L (25-35)
[2019-02-14 07:39] LABS: ALKALINE PHOSPHATASE 78 U/L (32-104); CALCIUM 9.6 mg/dL (8.8-10.2); GOT 47 U/L (10-30); GPT 31 U/L (10-36); TOTAL PROTEIN 7.2 g/dL (6.3-8.3)
[2019-02-14] MEDS ORDERED: NS 1,000 ML IV ONE ×2 (07:46→09:19)
[2019-02-14 07:50] LABS: BASO# 0.06 X1000 (0.0-0.2); BASO% 0.3 % (0.0-0.8); EOS# 0.56 X1000 (0.0-0.7); EOS% 3.1 % (0.0-10.0); HEMATOCRIT 39.6 % (37.0-47.0); HEMOGLOBIN 13.3 g/dL (12.0-16.0); IMM GRAN# 0.04 X1000 (0.0-0.04); IMM GRAN% 0.2 % (0.0-0.5); LYMPH# 3.91 X1000 (1.2-3.4); LYMPH% 21.3 % (20.5-51.1); MCH 29.1 PG (27-31); MCHC 33.6 g/dL (33-37); MCV 86.7 FL (81-99); MONO# 1.69 X1000 (0.11-0.59); MONO% 9.2 % (1.7-9.3); MPV 11.3 FL (7.4-10.4); NEUT# 12.08 X1000 (1.4-6.5); NEUT% 65.9 % (42.2-75.2); PLT 222 X1000 (130-400); RBC 4.57 XMIL (4.2-5.4); RDW 13.6 % (11.5-14.5); WBC 18.34 X1000 (4.8-10.8)
[2019-02-14 07:52] LABS: INR 0.88; PROTIME 12.4 Seconds (11.0-16.0)
[2019-02-14 07:53] LABS: PTT 27.6 Seconds (22.3-41.8)
[2019-02-14] MEDS ORDERED: TYLENOL PO PRN ×2 (09:19→09:23)
[2019-02-14] MEDS ORDERED: ZOFRAN IV PRN (09:23)
--- NOTE | 2019-02-14 10:39 | EKG Report ---
Test Performed on : 02/14/2019 08:05:11 AM Test Reason : emboli Blood Pressure : / mmHG Vent. Rate : 100 BPM Atrial Rate : 100 BPM P-R Int : 178 ms QRS Dur : 086 ms QT Int : 338 ms P-R-T Axes : 080 -21 028 degrees QTc Int : 436 ms Normal sinus rhythm. Septal infarct (cited on or before 23-FEB-2016) Abnormal ECG When compared with ECG of 21-OCT-2018 07:11, No significant change was found Unconfirmed Result
[2019-02-14 10:41] LABS: BILIRUBIN URINE NEGATIVE (NEGATIVE); BLOOD URINE NEGATIVE (NEGATIVE); KETONE URINE NEGATIVE (NEGATIVE); LEUKOCYTES URINE NEGATIVE (NEGATIVE); NITRITE URINE NEGATIVE (NEGATIVE); PROTEIN URINE NEGATIVE (NEGATIVE); SP GRAVITY URINE 1.005; UROBILINOGEN URINE NORMAL
[2019-02-14 10:42] LABS: CLARITY CLEAR (CLEAR); COLOR YELLOW; URINE SOURCE CLEAN CATCH; URINE WBC <10 /HPF (<10)
[2019-02-14] MEDS: DUONEB (A & A) INH SCH ×4 (11:18→22:47)
[2019-02-14] MEDS ORDERED: XANAX PO SCH ×2 (11:30)
[2019-02-14] MEDS ORDERED: DUONEB (A & A) INH SCH (11:30)
[2019-02-14] MEDS: NORCO-10 PO PRN ×3 (11:33→23:21)
[2019-02-14] MEDS: HUMALOG (PARKWAY) SUBQ SCH ×4 (14:12→20:28)
[2019-02-14] MEDS: SOLU-MEDROL IV SCH ×2 (14:26→22:16)
[2019-02-14] MEDS: NS 1,000 ML IV SCH (14:27)
[2019-02-14] MEDS: XANAX PO SCH (20:28)
--- NOTE | 2019-02-14 23:52 | HISTORY AND PHYSICAL ---
CHIEF COMPLAINT: Shortness of breath. HISTORY OF PRESENT ILLNESS: The patient has a known history of COPD. She presented to the hospital with palpitations, increased work of breathing, increased shortness of breath. Denies any fevers or chills. ALLERGIES: No known drug allergies. MEDICATIONS: Aspirin, TriCor, Lasix 40, gabapentin 600 b.i.d., metformin 500 b.i.d., omeprazole. REVIEW OF SYSTEMS: The patient notes that her symptoms have gradually worsened. She has been using albuterol, but has not really helped. She has had moderate increase in her work of breathing. Denies any chest pain. Denies fevers or chills. Denies dysuria, urinary frequency, urgency, constipation, melena, hematochezia. Denies skin rashes, weight loss, weight gain. Denies headaches, blurred vision, change in her vision. Does have a cough and shortness of breath, dyspnea on exertion, but a nonproductive cough. FAMILY HISTORY: Noncontributory. SOCIAL HISTORY: Patient denies alcohol or illicit substances. Has a history of smoking. PAST MEDICAL HISTORY: COPD, rheumatoid arthritis, fibromyalgia, chronic anxiety, diabetes. PHYSICAL EXAMINATION: VITAL SIGNS: Temperature 100.2 degrees, pulse 102, respiratory 18, BP 156/93, saturation 93% on room air. GENERAL: Patient is awake, alert. She is in mild respiratory distress. HEENT: Normocephalic. NECK: Supple. CARDIOVASCULAR: Regular rate. CHEST: Mild wheezing. Decreased breath sounds bilaterally. ABDOMEN: Soft, nondistended. EXTREMITIES: Moves all extremities. NEUROLOGIC: No focal changes. LABORATORIES: WBCs 18. Glucose 217. ASSESSMENT: 1. Chronic obstructive pulmonary disease with exacerbation. 2. Leukocytosis. 3. Diabetes with hyperglycemia. PLAN: We will admit patient to the hospital, IV fluids, oxygen, breathing treatments, and we will follow. cc: Preet Guerrero MD
[2019-02-15] MEDS: HUMALOG (PARKWAY) SUBQ SCH ×6 (00:20→21:55)
[2019-02-15] MEDS: DUONEB (A & A) INH SCH ×3 (03:33→11:43)
[2019-02-15] MEDS: NS 1,000 ML IV SCH (04:36)
[2019-02-15] MEDS: SOLU-MEDROL IV SCH ×3 (06:12→19:20)
[2019-02-15 06:24] LABS: RBC 4.03 XMIL (4.2-5.4); WBC 11.92 X1000 (4.8-10.8)
[2019-02-15 06:25] LABS: HEMATOCRIT 35.1 % (37.0-47.0); HEMOGLOBIN 11.7 g/dL (12.0-16.0); MCHC 33.3 g/dL (33-37); MCV 87.1 FL (81-99); RDW 13.3 % (11.5-14.5)
[2019-02-15 06:50] LABS: HEMOGLOBIN A1C 8.4 % (4.8-6.0)
[2019-02-15 06:52] LABS: AGAP 14; ALBUMIN 3.4 g/dL (3.5-5.0); ALKALINE PHOSPHATASE 66 U/L (32-104); BUN 15 mg/dL (8-22); CALCIUM 8.9 mg/dL (8.8-10.2); CHLORIDE 101 mmol/L (98-107); COSMO 290; CREATININE 0.5 mg/dL (0.5-0.9); ESTIMATED GFR > 60; GLUCOSE 343 mg/dL (70-104); GOT 14 U/L (10-30); GPT 24 U/L (10-36); MAGNESIUM 1.4 mg/dL (1.5-2.7); POTASSIUM 3.9 mmol/L (3.5-5.1); SODIUM 138 mmol/L (136-145); TCO2 24 mmol/L (25-35); TOTAL PROTEIN 6.7 g/dL (6.3-8.3)
[2019-02-15] MEDS: ROCEPHIN 1 GM in NS 50 ML IV SCH (07:55)
--- NOTE | 2019-02-15 08:53 | EKG Report ---
Test Performed on : 02/15/2019 08:37:40 AM Test Reason : Increased Heart Rate Blood Pressure : / mmHG Vent. Rate : 126 BPM Atrial Rate : 126 BPM P-R Int : 160 ms QRS Dur : 092 ms QT Int : 308 ms P-R-T Axes : 000 -23 033 degrees QTc Int : 446 ms Sinus tachycardia. with premature supraventricular complexes. and with occasional premature ventricul ar complexes. Septal infarct (cited on or before 23-FEB-2016) Abnormal ECG When compared with ECG of 14-FEB-2019 08:05, (Unconfirmed) premature ventricular complexes. are now present premature supraventricular complexes. are now present Unconfirmed Result
[2019-02-15] MEDS: NORCO-10 PO PRN ×3 (10:12→21:56)
[2019-02-15] MEDS ORDERED: MAGNESIUM SULFATE 2 GM/S.W.I. 2 GM/50 ML IVPB IV ONE (11:36)
--- NOTE | 2019-02-15 12:10 | EKG Report ---
Test Performed on : 02/15/2019 11:49:48 AM Test Reason : afib Blood Pressure : / mmHG Vent. Rate : 115 BPM Atrial Rate : 115 BPM P-R Int : 080 ms QRS Dur : 084 ms QT Int : 336 ms P-R-T Axes : 000 -16 030 degrees QTc Int : 464 ms Sinus tachycardia. with short ND with premature supraventricular complexes. Low voltage QRS Borderline ECG When compared with ECG of 15-FEB-2019 08:37, (Unconfirmed) premature ventricular complexes. are no longer present ND interval has decreased Unconfirmed Result
[2019-02-15] MEDS: CARDIZEM PO SCH ×2 (12:32→16:15)
[2019-02-15] MEDS: ROBITUSSIN-AC PO PRN ×2 (15:00→21:55)
[2019-02-15] MEDS: ATROVENT NEB INH SCH ×2 (15:45→22:00)
[2019-02-15] MEDS: XOPENEX NEB INH SCH ×2 (15:45→22:00)
[2019-02-15] MEDS: TESSALON PO PRN (16:15)
--- NOTE | 2019-02-15 18:44 | CONSULTATION ---
DATE OF CONSULTATION: 02/15/2019 IMPRESSION: 1. Palpitations in the setting of chronic obstructive pulmonary disease exacerbation. ECG shows sinus rhythm with frequent premature atrial complexes. 2. Significant chronic obstructive pulmonary disease with exacerbation and apparent acute bronchitis. 3. Type 2 diabetes mellitus. 4. Gastroesophageal reflux disease. 5. Diverticular disease of the colon. RECOMMENDATIONS: 1. Echocardiography. 2. Telemetry observation. 3. Treat COPD as you are doing. HISTORY: This 68-year-old white female with past history of COPD, gastroesophageal reflux disease, with associated esophageal stricture in the past and diverticular disease of the colon as well as type 2 diabetes mellitus was admitted with worsening shortness of breath accompanied by cough productive of green sputum. She also describes some atypical chest discomfort. She has history of heavy smoking, discontinued in 2007 after approximately 60-pack year history of smoking. She has had previous admissions for COPD exacerbation. She reports recent increasing shortness of breath and cough productive of green sputum. There has been no orthopnea. She also describes palpitations several times throughout the day. She is not aware of any previous cardiac problems. PAST MEDICAL HISTORY: 1. COPD. 2. Type 2 diabetes mellitus. 3. Hyperlipidemia. 4. Gastroesophageal reflux disease with associated esophageal stricture in the past. 5. Diverticular disease of the colon. 6. Rheumatoid arthritis. 7. Fibromyalgia. 8. Anxiety disorder. ALLERGIES: She has no known drug allergies. HOME MEDICATIONS: Prior to admission as listed. SOCIAL HISTORY: She quit smoking in 2007 after a 60-pack year history of smoking. She does not use alcohol. FAMILY HISTORY: Negative for premature coronary artery disease. REVIEW OF SYSTEMS: Pulmonary: Noteworthy for dyspnea and cough productive of green sputum. Gastrointestinal: Noncontributory other than in history of present illness. Constitutional: Noncontributory beyond history of present illness. The remainder of the review of systems is negative/noncontributory as found in history of present illness, with 14 total systems reviewed. PHYSICAL EXAMINATION: This is an obese older white female in no distress, on room air. Blood pressure is 146 to 158 over 79 to 83, heart rate 112 to 123, with ECG monitor showing sinus tachycardia with premature atrial complexes. Oxygen saturation is 96% to 100% on room air. HEENT: Extraocular muscles appear intact. Mucous membranes are moist. Neck is supple without jugular venous distention. There are no carotid bruits. Chest is clear to auscultation. Cardiac: Regular rate and rhythm without appreciable murmur or gallop. Abdomen is soft. Bowel sounds are normal. Extremities are without edema. Neurologic: She is alert and oriented. Speech is fluent. She moves all 4 extremities equally well. DIAGNOSTIC DATA: ECG demonstrates sinus tachycardia. Telemetry demonstrates sinus rhythm with premature atrial complexes. Laboratory data includes a white blood cell count of 11.92, hematocrit 35.1, hemoglobin 11.7, platelet count 226. Sodium is 138, potassium 3.9, chloride 101, carbon dioxide 24, BUN is 15, creatinine 0.5, glucose 343. Troponin T less than 0.01. cc: Rickey Mesa MD
[2019-02-15] MEDS: XANAX PO SCH (21:56)
[2019-02-15] MEDS ORDERED: TUSSIONEX LIQUID PO PRN (22:58)
[2019-02-15] MEDS ORDERED: CARDIZEM PO SCH (23:00)
[2019-02-16] MEDS: HUMALOG (PARKWAY) SUBQ SCH ×6 (00:09→21:17)
[2019-02-16] MEDS: TESSALON PO PRN ×2 (00:10→12:20)
[2019-02-16 05:21] LABS: BASO# 0.01 X1000 (0.0-0.2); BASO% 0.1 % (0.0-0.8); HEMATOCRIT 33.5 % (37.0-47.0); HEMOGLOBIN 10.9 g/dL (12.0-16.0); IMM GRAN# 0.06 X1000 (0.0-0.04); IMM GRAN% 0.5 % (0.0-0.5); LYMPH# 1.37 X1000 (1.2-3.4); MCH 28.7 PG (27-31); MCHC 32.5 g/dL (33-37); MCV 88.2 FL (81-99); MONO# 0.72 X1000 (0.11-0.59); MONO% 5.8 % (1.7-9.3); MPV 11.4 FL (7.4-10.4); NEUT# 10.33 X1000 (1.4-6.5); NEUT% 82.6 % (42.2-75.2); PLT 250 X1000 (130-400); RDW 13.7 % (11.5-14.5); WBC 12.49 X1000 (4.8-10.8)
[2019-02-16 05:38] LABS: AGAP 6; BUN 17 mg/dL (8-22); CHLORIDE 106 mmol/L (98-107); COSMO 291; CREATININE 0.4 mg/dL (0.5-0.9); ESTIMATED GFR > 60; GLUCOSE 279 mg/dL (70-104); MAGNESIUM 1.9 mg/dL (1.5-2.7); POTASSIUM 4.7 mmol/L (3.5-5.1); SODIUM 140 mmol/L (136-145); TCO2 28 mmol/L (25-35)
[2019-02-16] MEDS: LOVENOX SUBQ SCH (06:04)
[2019-02-16] MEDS: CARDIZEM PO SCH ×2 (06:05→12:21)
[2019-02-16] MEDS: SOLU-MEDROL IV SCH ×2 (06:05→18:26)
[2019-02-16] MEDS: ROCEPHIN 1 GM in NS 50 ML IV SCH (08:55)
[2019-02-16] MEDS: NORCO-10 PO PRN ×3 (09:01→22:36)
[2019-02-16] MEDS: ATROVENT NEB INH SCH ×3 (09:40→22:34)
[2019-02-16] MEDS: XOPENEX NEB INH SCH ×4 (09:40→22:34)
[2019-02-16] MEDS ORDERED: ROBITUSSIN-DM PO ONE (17:08)
[2019-02-16] MEDS ORDERED: ZOFRAN IV PRN (17:13)
[2019-02-16] MEDS: GLUCOPHAGE PO SCH (18:26)
--- NOTE | 2019-02-16 21:09 | PROGRESS NOTE ---
DATE: 02/15/2019 SUBJECTIVE: Patient has no major complaints. OBJECTIVE: Blood pressure is 158/83, heart rate in the 1-teens, respiratory rate 20, temperature 97.9, 100% on room air. CARDIOVASCULAR : Regular rate and rhythm, PULMONARY: Bilateral breath sounds clear to auscultation. GI: Was soft, nontender, nondistended, bowel sounds are positive. LABORATORY DATA : White count is 11, hemoglobin and hematocrit 11, 35, platelets 226,000, sodium looked okay, mag was a little bit low at 1.4. PROBLEM LIST: 1. Chronic obstructive pulmonary disease exacerbation. We will continue empiric antibiotics, there is no clear evidence of pneumonia and she has no production in her cough. I am going to wean her steroids cause she is having a lot more palpitations. 2. Hypomagnesemia. We will stop that. 3. Atrial fibrillation. She has paroxysmal atrial fibrillation it is not clear she has a history of that. She does see Dr. Breaux but I am not sure her last echocardiogram in 2016 looked okay so going to start Cardizem. She does qualify for anticoagulation, I am going to try to see if we can get cardiology input and we will get an echocardiogram, thyroid function and follow. DISPOSITION: I think probably get her home soon if she stabilizes hopefully in the next 1-2 days. cc: Mao Goodwin MD
[2019-02-16] MEDS: XANAX PO SCH (21:17)
[2019-02-16] MEDS: DESYREL PO PRN (21:17)
[2019-02-17] MEDS: LOVENOX SUBQ SCH (05:06)
[2019-02-17] MEDS: SOLU-MEDROL IV SCH (05:06)
[2019-02-17 05:49] LABS: BASO# 0.01 X1000 (0.0-0.2); BASO% 0.1 % (0.0-0.8); HEMATOCRIT 34.2 % (37.0-47.0); HEMOGLOBIN 10.9 g/dL (12.0-16.0); IMM GRAN# 0.13 X1000 (0.0-0.04); IMM GRAN% 1.3 % (0.0-0.5); LYMPH% 12.2 % (20.5-51.1); MCH 28.4 PG (27-31); MCHC 31.9 g/dL (33-37); MCV 89.1 FL (81-99); MONO# 0.55 X1000 (0.11-0.59); MONO% 5.6 % (1.7-9.3); MPV 11.2 FL (7.4-10.4); NEUT# 7.97 X1000 (1.4-6.5); NEUT% 80.8 % (42.2-75.2); PLT 237 X1000 (130-400); RBC 3.84 XMIL (4.2-5.4); RDW 13.6 % (11.5-14.5); WBC 9.86 X1000 (4.8-10.8)
[2019-02-17 06:06] LABS: AGAP 9; BUN 15 mg/dL (8-22); CALCIUM 8.9 mg/dL (8.8-10.2); CHLORIDE 106 mmol/L (98-107); COSMO 296; CREATININE 0.4 mg/dL (0.5-0.9); ESTIMATED GFR > 60; GLUCOSE 310 mg/dL (70-104); POTASSIUM 4.6 mmol/L (3.5-5.1); SODIUM 142 mmol/L (136-145); TCO2 27 mmol/L (25-35)
[2019-02-17] MEDS: HUMALOG (PARKWAY) SUBQ SCH ×4 (06:25→20:58)
[2019-02-17] MEDS: XOPENEX NEB INH SCH ×5 (07:27→20:00)
[2019-02-17] MEDS: ATROVENT NEB INH SCH ×4 (07:27→21:15)
[2019-02-17] MEDS: ROCEPHIN 1 GM in NS 50 ML IV SCH (08:20)
[2019-02-17] MEDS: ROBITUSSIN-DM PO PRN ×2 (08:21→16:08)
[2019-02-17] MEDS: GLUCOPHAGE PO SCH ×2 (08:21→19:17)
[2019-02-17] MEDS ORDERED: CARDIZEM PO SCH ×2 (09:00→15:30)
[2019-02-17] MEDS: NORCO-10 PO PRN ×3 (09:14→21:02)
[2019-02-17] MEDS ORDERED: LASIX IV ONE (14:26)
[2019-02-17] MEDS ORDERED: XANAX PO ONE (15:25)
--- NOTE | 2019-02-17 15:40 | EKG Report ---
Test Performed on : 02/17/2019 3:17:37 PM Test Reason : TACK Blood Pressure : / mmHG Vent. Rate : 164 BPM Atrial Rate : 166 BPM P-R Int : 000 ms QRS Dur : 090 ms QT Int : 274 ms P-R-T Axes : 000 -21 127 degrees QTc Int : 452 ms Atrial fibrillation. with rapid ventricular response. with premature ventricular or aberrantly conduc gwendolyn complexes. Anteroseptal infarct , age undetermined Abnormal ECG When compared with ECG of 15-FEB-2019 11:49, (Unconfirmed) Atrial fibrillation. has replaced Sinus rhythm. Anteroseptal infarct is now present Nonspecific T wave abnormality now evident in Lateral leads Unconfirmed Result
--- NOTE | 2019-02-17 15:43 | ECHO REPORT ---
ORDER DATE: 02/15/2019 INTERPRETING PHYSICIAN: Dr. Sj Breaux ECHOCARDIOGRAPHIC MEASUREMENTS: Interventricular septum: 1.4 cm. Left ventricular posterior wall: 1.2 cm. Diastolic diameter: 5.2 cm. Left atrium: 4 cm. Aorta: 3.2 cm. SUMMARY OF THE 2-DIMENSIONAL IMAGING: Pulmonic valve is normal. Aortic valve leaflets are trileaflet. Mitral valve was normal. Tricuspid valve is normal. Mild tricuspid regurgitation. Peak velocity across the tricuspid valve was 2 meters per second. Pulmonary artery systolic pressure of 46 mmHg. Peak velocity across the aortic valve less than 2 meters per second. There is no aortic stenosis or regurgitation. There is moderate mitral regurgitation. There is mitral annular calcification. Normal left ventricular cavity size. Estimated ejection fraction of 60%. There is concentric left ventricular hypertrophy. There is left atrial enlargement. Anterior echo free space does show pericardial fat pad noted. There is no obvious intracardiac mass or thrombus seen. cc: MD Mao Melgar MD
[2019-02-17] MEDS: LANOXIN IV SCH ×2 (16:00→21:03)
[2019-02-17] MEDS ORDERED: CYMBALTA PO ONE (16:45)
[2019-02-17] MEDS ORDERED: XYLOCAINE 2% JELLY UROJECT TOP ONE (19:04)
[2019-02-17] MEDS ORDERED: LASIX ONE (19:09)
[2019-02-17] MEDS: CARDIZEM 125 MG/D5W 125 MG/125 ML IVPB IV SCH (19:12)
--- NOTE | 2019-02-17 19:43 | PROGRESS NOTE ---
DATE: 02/17/2019 SUBJECTIVE: The patient is very upset today because her Lasix had not been re-initiated. She was more than happy to tell me about that. She is upset that we did not have her echocardiogram report. But, her breathing had improved. I do not think she had any major complaints. OBJECTIVE: Blood pressure is 178/103, heart rate was 135, respiratory rate of 22, temperature 98 degrees, 100% it says a Venturi mask, but she is on 3 L. Cardiovascular: Tachycardic, but regular. Pulmonary: Minimal wheezing. GI: Was soft, nontender, nondistended. Bowel sounds are positive. Extremity exam: No clubbing or cyanosis. Lymphatic exam: No peripheral edema. Neurological: Nonfocal. LABORATORY DATA: White count 9.8, hemoglobin and hematocrit 10 and 34, platelets 237,000. Basic was normal. Sugar 310. PROBLEM LIST: 1. Atrial fibrillation with rapid ventricular response. Shortly after seeing her, her heart rate went up in the 180s. It is down 160s and sustaining. I think it is atrial fibrillation. I know when Cardiology saw her earlier, they did not feel she had any evidence of atrial fibrillation, which I think the wide complex rhythm was atrial fibrillation with aberrancy, but she is sustaining that and that is on Cardizem. So we are going to increase her Cardizem. I think we are limited in usage of beta blockers. We may have to give her digoxin and we will see how she does. 2. Chronic obstructive pulmonary disease exacerbation. This seems to be improving. I am going to decrease her steroids. I think it is making her a bit agitated, although, I do not think she would ever admit to that, but she has not been as unpleasant as she has been last 24 hours and I think that maybe some of that may be being in the hospital, but some of that I think may be also related to the corticosteroid. 3. Hypomagnesemia. That had previously been okay. She is not hyperkalemic. 4. Hypothyroidism. Her thyroid level is a bit on the low side. 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 Of course we would really not want to institute any hyperthyroid, but I do think she would benefit from that. 5. Disposition. From a breathing standpoint I think she is stable, but now we are still dealing with rapid ventricular response issues. So we will continue to follow. cc: Mao Goodwin MD
[2019-02-17 20:45] LABS: BILIRUBIN URINE NEGATIVE (NEGATIVE); BLOOD URINE NEGATIVE (NEGATIVE); CLARITY CLEAR (CLEAR); COLOR YELLOW; KETONE URINE NEGATIVE (NEGATIVE); LEUKOCYTES URINE NEGATIVE (NEGATIVE); NITRITE URINE NEGATIVE (NEGATIVE); PROTEIN URINE 1+(30 mg/dL) mg/dL (NEGATIVE); SP GRAVITY URINE 1.015; UROBILINOGEN URINE NORMAL
[2019-02-17 20:48] LABS: URINE BACTERIA 1+ /HFP; URINE CAST NONE SEEN /LPF; URINE CRYSTAL NONE SEEN /HPF; URINE EPITHELIAL CELLS >10 /HPF (<10); URINE SOURCE CATH; URINE WBC <10 /HPF (<10); URINE YEAST NONE SEEN /HPF
[2019-02-17] MEDS: ASPIRIN EC PO SCH (20:58)
[2019-02-17] MEDS: TRICOR PO SCH (20:58)
[2019-02-17] MEDS: NEURONTIN PO SCH (20:58)
[2019-02-17] MEDS: TESSALON PO SCH (21:02)
[2019-02-17] MEDS: XANAX PO PRN (21:02)
[2019-02-18] MEDS: CARDIZEM 125 MG/D5W 125 MG/125 ML IVPB IV SCH ×3 (01:36→19:34)
[2019-02-18] MEDS: LANOXIN IV SCH (02:45)
[2019-02-18] MEDS: LOVENOX SUBQ SCH (05:39)
[2019-02-18] MEDS: NORCO-10 PO PRN ×2 (06:12→20:31)
[2019-02-18] MEDS: XANAX PO PRN ×3 (06:12→20:31)
[2019-02-18 07:15] LABS: AGAP 11; BUN 14 mg/dL (8-22); CALCIUM 9.3 mg/dL (8.8-10.2); CHLORIDE 100 mmol/L (98-107); COSMO 282; CREATININE 0.4 mg/dL (0.5-0.9); ESTIMATED GFR > 60; GLUCOSE 206 mg/dL (70-104); POTASSIUM 4.4 mmol/L (3.5-5.1); SODIUM 138 mmol/L (136-145); TCO2 27 mmol/L (25-35)
[2019-02-18 07:17] LABS: BASO# 0.03 X1000 (0.0-0.2); BASO% 0.2 % (0.0-0.8); EOS# 0.03 X1000 (0.0-0.7); EOS% 0.2 % (0.0-10.0); HEMOGLOBIN 12.2 g/dL (12.0-16.0); IMM GRAN# 0.16 X1000 (0.0-0.04); IMM GRAN% 1.2 % (0.0-0.5); LYMPH# 3.69 X1000 (1.2-3.4); LYMPH% 28.6 % (20.5-51.1); MCH 28.7 PG (27-31); MCHC 32.1 g/dL (33-37); MCV 89.4 FL (81-99); MONO# 1.59 X1000 (0.11-0.59); MONO% 12.3 % (1.7-9.3); MPV 11.2 FL (7.4-10.4); NEUT% 57.5 % (42.2-75.2); PLT 268 X1000 (130-400); RBC 4.25 XMIL (4.2-5.4); RDW 13.5 % (11.5-14.5)
[2019-02-18] MEDS: HUMALOG (PARKWAY) SUBQ SCH ×4 (07:18→20:31)
[2019-02-18 08:07] LABS: ANISOCYTOSIS 1+; BANDS 1 % (0-1); LYMPHS 24 % (21-51); MONO 11 % (1-9); SEGS 64 % (42-75)
[2019-02-18] MEDS: GLUCOPHAGE PO SCH ×2 (08:57→16:59)
[2019-02-18] MEDS: TESSALON PO SCH ×3 (08:57→16:59)
[2019-02-18] MEDS: ROCEPHIN 1 GM in NS 50 ML IV SCH (08:58)
[2019-02-18] MEDS: NEURONTIN PO SCH ×2 (08:58→20:32)
[2019-02-18] MEDS: CYMBALTA PO SCH (08:59)
[2019-02-18] MEDS: SOLU-MEDROL IV SCH (08:59)
[2019-02-18] MEDS: COZAAR PO SCH (08:59)
[2019-02-18] MEDS: XOPENEX NEB INH SCH ×3 (09:42→22:09)
[2019-02-18] MEDS: ATROVENT NEB INH SCH ×3 (09:43→22:09)
--- NOTE | 2019-02-18 12:58 | EKG Report ---
Test Performed on : 02/18/2019 12:14:53 PM Test Reason : AFIB Blood Pressure : / mmHG Vent. Rate : 121 BPM Atrial Rate : 141 BPM P-R Int : 000 ms QRS Dur : 086 ms QT Int : 308 ms P-R-T Axes : 000 -33 117 degrees QTc Int : 437 ms Atrial fibrillation. with rapid ventricular response. Left axis deviation Minimal voltage criteria for LVH, may be normal variant Inferior infarct , age undetermined Anteroseptal infarct (cited on or before 17-FEB-2019) Abnormal ECG When compared with ECG of 17-FEB-2019 15:17, (Unconfirmed) Inferior infarct is now present Unconfirmed Result
[2019-02-18] MEDS: LASIX IV SCH (15:49)
--- NOTE | 2019-02-18 16:58 | PROGRESS NOTE ---
DATE: 02/18/2019 SUBJECTIVE: She feels okay. Her breathing has improved but she still has persistent tachycardia into the 120s. OBJECTIVE: Vital Signs: Blood pressure 140/81, heart rate 127, respiratory rate 22, temperature 98.2 degrees, satting 94% on 2 L. Cardiovascular: Regular rate and rhythm. Pulmonary: Bilateral breath sounds. Clear to auscultation. GI: Soft, nontender, nondistended. Bowel sounds are positive. She still has some end-expiratory wheezes, although overall improved. LABORATORY DATA: Currently white count is 12, hemoglobin and hematocrit 12 and 38, platelets 268. Basic was normal. Mag was 1.7 yesterday, and 4.4 potassium today. ASSESSMENT AND PLAN: 1. Atrial fibrillation with rapid ventricular response, still not rate controlled. I have discussed the case with Dr. Higgins. He will re-evaluate the patient today, and make further recommendations as far as cardioversion. I do not think amiodarone is an option. I am trying to avoid beta blockers because of her persistent bronchospasm. 2. Chronic obstructive pulmonary disease exacerbation. Will continue breathing treatments. She is on low-dose Xopenex and Atrovent. She is on low-dose corticosteroids. 3. Hypothyroidism. She is on a little bit of Synthroid. We started that yesterday. I think we will hold it for right now just because I do not want it to contribute to tachyarrhythmia at this point, but I do think residential she may need it, and she will need workup for central hypothyroidism. DISPOSITION: She is still in the ICU on IV Cardizem drip with atrial fibrillation with rapid ventricular response. A 32 minute critical care time for those purposes. cc: Mao Goodwin MD
[2019-02-18] MEDS ORDERED: MAGNESIUM SULFATE 2 GM/S.W.I. 2 GM/50 ML IVPB IV ONE (17:32)
[2019-02-18] MEDS: TAMBOCOR PO SCH (20:30)
[2019-02-18] MEDS: ASPIRIN EC PO SCH (20:31)
[2019-02-18] MEDS: DESYREL PO PRN (20:31)
[2019-02-18] MEDS: ELIQUIS PO SCH (20:31)
[2019-02-18] MEDS: TRICOR PO SCH (20:31)
--- NOTE | 2019-02-18 21:52 | CARDIOLOGY PROGRESS NOTE ---
DATE: 02/18/2019 SUBJECTIVE: Ms. Oropeza reports no palpitations, no shortness of breath. She is still in atrial fibrillation on a diltiazem infusion. OBJECTIVE: Vital signs: Patient is afebrile. Her heart rate is in the 110s to 120s. Blood pressure 140/81. General: She is in no acute distress. Cardiovascular: She is noted to be in an irregularly irregular, mildly tachycardic rhythm. No lower extremity edema. Chest: Mild expiatory wheezes. No increased work of breathing. Abdomen: Soft, nontender. PERTINENT DATA: White count is 12.9, hematocrit is 38, platelet count is 268,000. Sodium 138, potassium 4.4, BUN 14, creatinine is 0.4. Mag level 1.7. ASSESSMENT: Ms Oropeza is a 68-year-old female with relatively recent onset atrial fibrillation. She is here for a chronic obstructive pulmonary disease exacerbation. PLAN: I will initiate her on flecainide. She has no history of coronary disease. Previous cardiac catheterization was performed in 2010. She has a history of a normal ejection fraction. Recent echo shows an EF of 60%. I will initiate her on Eliquis 5 mg b.i.d. based on her age, weight, and kidney function. Tentative plans to consider FRANSISCO cardioversion in the morning. If she is in sinus rhythm in the morning she could likely be discharged. cc: Chidi Higgins MD
[2019-02-19] MEDS: CARDIZEM 125 MG/D5W 125 MG/125 ML IVPB IV SCH ×2 (02:21→10:03)
[2019-02-19] MEDS: HUMALOG (PARKWAY) SUBQ SCH ×2 (06:01→13:20)
[2019-02-19 06:16] LABS: AGAP 12; BUN 29 mg/dL (8-22); CALCIUM 9.2 mg/dL (8.8-10.2); CHLORIDE 96 mmol/L (98-107); COSMO 279; CREATININE 0.5 mg/dL (0.5-0.9); ESTIMATED GFR > 60; GLUCOSE 295 mg/dL (70-104); POTASSIUM 4.5 mmol/L (3.5-5.1); SODIUM 131 mmol/L (136-145); TCO2 23 mmol/L (25-35)
[2019-02-19 07:06] LABS: BASO# 0.02 X1000 (0.0-0.2); BASO% 0.1 % (0.0-0.8); EOS# 0.05 X1000 (0.0-0.7); EOS% 0.3 % (0.0-10.0); HEMATOCRIT 36.8 % (37.0-47.0); HEMOGLOBIN 12.4 g/dL (12.0-16.0); IMM GRAN# 0.14 X1000 (0.0-0.04); IMM GRAN% 0.9 % (0.0-0.5); LYMPH# 3.14 X1000 (1.2-3.4); LYMPH% 21.2 % (20.5-51.1); MCH 29.5 PG (27-31); MCHC 33.7 g/dL (33-37); MCV 87.4 FL (81-99); MONO# 1.46 X1000 (0.11-0.59); MONO% 9.8 % (1.7-9.3); MPV 10.9 FL (7.4-10.4); NEUT# 10.02 X1000 (1.4-6.5); NEUT% 67.7 % (42.2-75.2); PLT 308 X1000 (130-400); RBC 4.21 XMIL (4.2-5.4); WBC 14.83 X1000 (4.8-10.8)
[2019-02-19 07:22] LABS: LYMPHS 25 % (21-51); MONO 5 % (1-9); SEGS 70 % (42-75)
[2019-02-19] MEDS: NORCO-10 PO PRN ×2 (08:14→13:28)
[2019-02-19] MEDS: TESSALON PO SCH ×2 (08:14→13:20)
[2019-02-19] MEDS: COZAAR PO SCH (08:15)
[2019-02-19] MEDS: NEURONTIN PO SCH (08:15)
[2019-02-19] MEDS: ELIQUIS PO SCH (08:15)
[2019-02-19] MEDS: TAMBOCOR PO SCH (08:15)
[2019-02-19] MEDS: ROCEPHIN 1 GM in NS 50 ML IV SCH (08:16)
[2019-02-19] MEDS: SOLU-MEDROL IV SCH (08:16)
[2019-02-19] MEDS: CYMBALTA PO SCH (08:16)
[2019-02-19] MEDS: LASIX IV SCH (08:16)
[2019-02-19] MEDS: ATROVENT NEB INH SCH ×2 (09:04→15:30)
[2019-02-19] MEDS: XOPENEX NEB INH SCH ×2 (09:04→15:30)
[2019-02-19] MEDS ORDERED: SYNTHROID PO ONE (09:17)
[2019-02-19 09:20] LABS: INR 0.95; PROTIME 13.2 Seconds (11.0-16.0)
--- NOTE | 2019-02-19 09:49 | Diag Imaging Result Doc PS360 ---
EXAM: CHEST-PORTABLE HISTORY: leukocytosis; r/o pna TECHNIQUE: Single view of the chest was performed portably. COMPARISON: 02/14/2019 FINDINGS: There is cardiomegaly. There is vascular congestion. Small linear/nodular opacity projects over the left costophrenic angle and in right midlung zone. Improved inspiratory result on today's exam. Unchanged interstitial prominence is noted. IMPRESSION: Persistent mild interstitial prominence. Small opacities left costophrenic angle and right midlung zone may represent subsegmental atelectasis. Recommend follow-up with PA and lateral the patient is able to tolerate. Electronically signed by Wanda Willis 02/19/2019 9:47 AM
[2019-02-19] MEDS ORDERED: XYLOCAINE 2% VISCOUS ONE (10:14)
[2019-02-19] MEDS: GLUCOPHAGE PO SCH (10:15)
--- NOTE | 2019-02-19 10:15 | EKG Report ---
Test Performed on : 02/19/2019 05:24:27 AM Test Reason : AFIB Blood Pressure : / mmHG Vent. Rate : 084 BPM Atrial Rate : 088 BPM P-R Int : 000 ms QRS Dur : 100 ms QT Int : 370 ms P-R-T Axes : 000 -12 130 degrees QTc Int : 437 ms Atrial fibrillation. with a competing junctional pacemaker. with premature ventricular or aberrantly conducted complexes. Anterior infarct (cited on or before 17-FEB-2019) Abnormal ECG When compared with ECG of 18-FEB-2019 12:14, (Unconfirmed) Criteria for Inferior infarct are no longer present Unconfirmed Result
[2019-02-19] MEDS ORDERED: DIPRIVAN 1% ONE (10:56)
[2019-02-19] MEDS ORDERED: NS 1,000 ML ONE (11:17)
--- NOTE | 2019-02-19 12:15 | ECHO REPORT ---
ORDER DATE: 02/19/2019 PROCEDURE PERFORMED: Transesophageal echocardiogram prior to cardioversion for atrial fibrillation. PROCEDURE: Patient was brought to the cardiac catheterization laboratory. Informed consent was obtained. The patient's oropharynx was anesthetized using Cetacaine spray. A transesophageal probe was easily passed into the esophagus and ultrasound pictures were obtained. Anesthesia was present and propofol was given. Please see detailed anesthesia records. There were no complications. FINDINGS: 1. Normal left ventricular cavity size. Estimated ejection fraction of 60%. 2. Aortic valve leaflets are trileaflet. 3. Pulmonic valve was normal. 4. Mitral valve was normal. There is mitral annular calcification. 5. Tricuspid valve was normal. 6. Left atrium was normal. Left atrial appendage was normal. The right atrium was normal. 7. Descending aorta had layered plaque. Ascending aorta distally had layered plaque. 8. Doppler studies revealed mild to moderate mitral regurgitation. 9. There is mild tricuspid regurgitation. 10. There is no aortic stenosis or regurgitation. 11. There is no pericardial effusion or obvious intracardiac mass or thrombus seen. 12. Would proceed with cardioversion. cc: MD Chidi Melgar MD
--- NOTE | 2019-02-19 12:16 | OPERATIVE NOTE ---
PROCEDURE DATE: PROCEDURE PERFORMED: Cardioversion. DESCRIPTION OF PROCEDURE: The patient underwent a transesophageal echocardiogram. Informed consent was obtained prior to that for a transesophageal echocardiogram as well as cardioversion. Patient has received propofol. Please see detailed anesthesia records. The patient was cardioverted to sinus rhythm, 150 joules given, synchronized cardioversion was done. Patient is in sinus rhythm. No complications. cc: Sj Breaux MD
--- NOTE | 2019-02-19 12:43 | EKG Report ---
Test Performed on : 02/19/2019 12:30:54 PM Test Reason : Post cardioversion Blood Pressure : / mmHG Vent. Rate : 081 BPM Atrial Rate : 081 BPM P-R Int : 170 ms QRS Dur : 102 ms QT Int : 380 ms P-R-T Axes : -39 -26 079 degrees QTc Int : 441 ms Unusual P axis, possible ectopic atrial rhythm. with premature atrial complexes. Inferior infarct , age undetermined Anteroseptal infarct (cited on or before 17-FEB-2019) Abnormal ECG When compared with ECG of 19-FEB-2019 05:24, (Unconfirmed) Ectopic atrial rhythm. has replaced Atrial fibrillation. Inferior infarct is now present Confirmed by Neal MCLAIN, Carlos Rosario ([id number]) on 02/22/2019 5:05:18 PM
--- NOTE | 2019-02-19 13:08 | PROGRESS NOTE ---
DATE: 02/19/2019 SUBJECTIVE: Patient has no complaints today. She is looking well. She is breathing comfortably. She seems calm. I think she is doing okay. OBJECTIVE DATA: Heart rate is finally under control, but it is not rhythm controlled, but she is down in the 80s on Cardizem and digoxin. Respiratory rate 20, blood pressure 124/59, temperature 98.2, and 94 percent on 2 L. Cardiovascular irregularly irregular. Pulmonary with no wheezes, a little bit of rales at bases. GI was soft, nontender, and nondistended. Bowel sounds are positive. LABORATORY DATA: White count has bumped up 14,000. Most of that is neutrophils 25% lymphocytes, but not really a clear infected profile differential as far as a left shift. Sodium 131. PROBLEM LIST: 1. Atrial fibrillation with rapid ventricular response. Dr. Higgins has started flecainide, and the plan will be FRANSISCO today because she is still in the throes of her, and that is what we are going to do. I appreciate their interventions. 2. Chronic obstructive pulmonary disease exacerbation. I think she is stable. I think we can discharge her on Xopenex, Atrovent and steroid taper. 3. Hypothyroidism. I think she needs Synthroid. I am just a little reluctant to start it with her atrial fibrillation issues, but I think roasterman she will need that. She will also need a workup for central hypothyroidism. 4. Anxiety and depression. She is back on her Cymbalta. We have given her a little bit of Xanax. DISPOSITION: After cardioversion, the plan is to let her possibly go home this afternoon if stable. I have discussed this with the team at [facility]. cc: Mao Goodwin MD
[2019-02-19] MEDS: XANAX PO PRN (13:22)
[2019-02-19 16:06] VITALS: BP 120/72
[2019-02-19] MEDS ORDERED: NORCO-10 PO PRN (16:21)
[2019-02-19] MEDS ORDERED: ROBITUSSIN-DM PO PRN (16:22)
[2019-02-19] MEDS ORDERED: TYLENOL PO PRN (16:24)
[2019-02-19] MEDS ORDERED: TUSSIONEX LIQUID PO PRN (16:24)
[2019-02-19] MEDS ORDERED: XANAX PO PRN (16:25)
[2019-02-19] MEDS ORDERED: GLUCOPHAGE PO SCH (17:00)
[2019-02-19] MEDS ORDERED: TESSALON PO SCH (17:00)
[2019-02-19] MEDS ORDERED: ELIQUIS PO SCH (21:00)
[2019-02-19] MEDS ORDERED: TAMBOCOR PO SCH (21:00)
[2019-02-19] MEDS ORDERED: ASPIRIN EC PO SCH (21:00)
[2019-02-19] MEDS ORDERED: HUMALOG SUBQ SCH (21:00)
[2019-02-19] MEDS ORDERED: TRICOR PO SCH (21:00)
[2019-02-19] MEDS ORDERED: NEURONTIN PO SCH (21:00)
[2019-02-19] MEDS ORDERED: ATROVENT NEB INH SCH (22:00)
[2019-02-19] MEDS ORDERED: XOPENEX NEB INH SCH (22:00)
[2019-02-20] MEDS ORDERED: SYNTHROID PO SCH ×2 (07:00)
[2019-02-20] MEDS ORDERED: ROCEPHIN 1 GM in NS 50 ML IV SCH (08:00)
[2019-02-20] MEDS ORDERED: CYMBALTA PO SCH (09:00)
[2019-02-20] MEDS ORDERED: LASIX IV SCH (09:00)
[2019-02-20] MEDS ORDERED: COZAAR PO SCH (09:00)
[2019-02-20] MEDS ORDERED: SOLU-MEDROL IV SCH (09:00)
--- NOTE | 2019-02-21 07:27 | DISCHARGE SUMMARY ---
ADMISSION DATE: 02/14/2019 DISCHARGE DATE: 02/19/2019 ADMISSION DIAGNOSES: 1. Chronic obstructive pulmonary disease with exacerbation. 2. Leukocytosis. 3. Diabetes with hyperglycemia. DISCHARGE DIAGNOSES: 1. Atrial fibrillation with rapid ventricular response, resolved after transesophageal echocardiogram with direct-current cardioversion. 2. Chronic obstructive pulmonary disease exacerbation, resolved. 3. Hypothyroidism. 4. Anxiety and depression. 5. Uncontrolled diabetes mellitus type 2. CONSULTATIONS: Cardiology, Dr. Mesa. SURGERIES AND PROCEDURES: On 02/19/2019, she had a transesophageal echocardiogram with cardioversion. It was successful, and there were no complications for the procedure. HOSPITAL COURSE: On 02/14/2019, Ms. Simran Oropeza, a 68-year-old female with a known history of COPD, presented to the hospital with complaints of palpitations and shortness of breath, where she was initially started on COPD exacerbation treatment, including breathing treatments, oxygen, IV fluids, and Rocephin. Her initial EKG was sinus tachycardia with PVCs. She had an echocardiogram, which showed a normal EF, a little bit of pulmonary hypertension, with systolic pressure of 46 mmHg. By the next day, she had converted to atrial fibrillation with RVR, was initiated on a Cardizem drip, and transferred to the ICU. That is when Cardiology was consulted. Despite attempts with medication to control the heart rate for a conversion, she required being transferred to [facility] for transesophageal echocardiogram, cardioversion, which was successful. By that point, her COPD exacerbation had resolved, and she was stable and deemed appropriate for discharge home. DISCHARGE VITAL SIGNS: Temperature 97.6 degrees, heart rate 78, respiratory rate 18, blood pressure 120/72, O2 saturation 97% on room air. LABORATORY DATA: White blood cells 14,000, but she was on steroids. Red blood cells 4, hemoglobin 12, hematocrit 36, platelet count 308,000. INR 0.95. Sodium 131, potassium 4.5, BUN 29, creatinine 0.5, glucose 295. Hemoglobin A1c was 8.4. Calcium is 9.2. Magnesium is 2.0. PERTINENT IMAGING: On 02/14/2019, chest x-ray: Mildly shallow inspiration, mild interstitial scarring and fibrosis. On 02/15/2019, echocardiogram: EF 60%, pulmonary pressure of 46. On 02/19/2019, chest x-ray: Persistent mild interstitial prominence, small opacities of the left costophrenic angle and right mid lung zone may represent subsegmental atelectasis. EKG on 02/14/2019 showed sinus rhythm. EKG on 02/15/2019: Sinus tachycardia with PVCs. On repeat, sinus tachycardia with PVCs. EKG on 02/17/2019: Atrial fibrillation with RVR. Rate was 164 at that time. EEG on 02/18/2019: Atrial fibrillation with RVR. EKG on 02/19/2019: Atrial fibrillation with a junctional pacemaker rhythm. EKG on 02/19/2019: Sinus rhythm, rate of 81. FRANSISCO showed EF of 60%. DISCHARGE MEDICATIONS: 1. Xanax 1 mg p.o. twice daily. 2. Aspirin 81 mg p.o. nightly. 3. Cozaar 50 mg p.o. daily. 4. Cymbalta 60 mg p.o. daily. 5. Lasix 40 mg p.o. daily. 6. Neurontin 600 mg p.o. twice daily. 7. Metformin 500 mg p.o. twice daily. 8. [place] 1 tablet p.o. t.i.d. p.r.n. 9. Omeprazole 40 mg p.o. daily. 10. Prednisone 15 mg p.o. daily. 11. Tricor 48 mg p.o. nightly. 12. Eliquis 5 mg p.o. twice daily. 13. Januvia 100 mg p.o. daily. 14. Omnicef 300 mg p.o. twice daily. 15. Flecainide 100 mg p.o. twice daily. DISCHARGE DIET: Diabetic and heart healthy. DISCHARGE ACTIVITY: As tolerated. DISCHARGE FOLLOWUP: Dr. Weathers and Dr. Mesa. DISCHARGE INSTRUCTIONS: If her condition changes, contact physician and/or return to the emergency department. Changes may include, but not limited to, shortness of breath, increased fatigue, excessive bleeding, unexplained weight loss or gain, unimaginable pain, signs or symptoms of infection. DISCHARGE DISPOSITION: Home. Dictated by ALBINO Rivas for Mao Goodwin MD cc: ALBINO Rivas MD
== END 2019-02-19 18:43 | disposition home health service (06) | DRG 192 ==
LOC: P.ED 05:47 → P.MEDSURG 05:47 → OBSVTOIN 09:13 → SUATTDRO 09:13 → P.ICU 02-17 17:48 → 3S 02-19 10:45
PROVIDERS: ATTEND Internal Medicine
CPT/HCPCS: 36415; 71010; 71045; 80048; 80053; 81001; 82550; 82805; 82948; 83036; 83605; 83735; 84439; 84443; 84484; 85025; 85027; 85610; 85730; 87040; 92960; 93005; 93010; 93306; 93312; 94640; 94761; 96361; 96365; 96375; 99285; A9270; J0696; J1160; J1650; J1815; J1940; J2920; J2930; J3475; J7030; XXXXX

== ENCOUNTER 2019-07-29 00:34 | Inpatient (IN) ==
[2019-07-29] MEDS ORDERED: CARDIZEM IV ONE ×3 (00:37→15:53)
[2019-07-29] MEDS ORDERED: ALBUTEROL NEB ONE (00:45)
[2019-07-29] MEDS ORDERED: ALBUTEROL NEB INH ONE (00:46)
[2019-07-29 01:11] LABS: INR 1.07; PROTIME 14.5 Seconds (11.0-16.0); PTT 29.7 Seconds (22.3-41.8)
[2019-07-29 01:19] LABS: URINE SOURCE CATH
[2019-07-29] MEDS ORDERED: LEVAQUIN 750 MG/D5W 750 MG/150 ML IVPB IV ONE (01:31)
[2019-07-29 01:33] LABS: BILIRUBIN URINE NEGATIVE (NEGATIVE); BLOOD URINE TRACE (NEGATIVE); COLOR YELLOW; GLUCOSE URINE NEGATIVE (NEGATIVE); KETONE URINE NEGATIVE (NEGATIVE); LEUKOCYTES URINE LARGE (NEGATIVE); NITRITE URINE POSITIVE (NEGATIVE); PROTEIN URINE 50 mg/dL (NEGATIVE); SP GRAVITY URINE 1.015; TURBIDITY URINE HAZY (CLEAR); UROBILINOGEN URINE NORMAL (NORMAL)
[2019-07-29] MEDS ORDERED: NS 1,000 ML ONE (01:33)
[2019-07-29 01:34] LABS: UR EPITHELIAL CELLS <10 /HPF (<10); URINE BACTERIA 4+ /HPF; URINE RBC <10 /HPF (<10); URINE WBC TNTC /HPF (<10)
[2019-07-29] MEDS ORDERED: NS 1,000 ML IV ONE ×2 (01:34→01:44)
[2019-07-29 01:39] LABS: ALBUMIN 4.1 g/dL (3.5-5.0); ALKALINE PHOSPHATASE 79 U/L (32-104); BUN 26 mg/dL (8-22); CALCIUM 10.1 mg/dL (8.8-10.2); CK PROFILE 46 U/L (24-173); CREATININE 0.8 mg/dL (0.5-0.9); ESTIMATED GFR > 60; GLUCOSE 245 mg/dL (70-104); GOT 38 U/L (10-30); GPT 18 U/L (10-36); TCO2 25 mmol/L (25-35); TOTAL PROTEIN 6.9 g/dL (6.3-8.3)
[2019-07-29 01:46] LABS: CHLORIDE 94 mmol/L (98-107); POTASSIUM 4.3 mmol/L (3.5-5.1); SODIUM 137 mmol/L (136-145)
[2019-07-29 01:48] LABS: AGAP 17; COSMO 287
[2019-07-29] MEDS ORDERED: LEVOPHED ONE (02:17)
[2019-07-29] MEDS ORDERED: D5 1/2 NS 250 ML ONE (02:19)
[2019-07-29] MEDS: LEVOPHED 8 MG in D5 1/2 NS 250 ML IV SCH ×3 (02:27→04:30)
[2019-07-29 03:17] LABS: BASO# 0.03 X1000 (0.0-0.2); BASO% 0.2 % (0.0-0.8); EOS# 0.25 X1000 (0.0-0.7); EOS% 1.8 % (0.0-10.0); HEMATOCRIT 36.9 % (37.0-47.0); HEMOGLOBIN 11.1 g/dL (12.0-16.0); IMM GRAN# 0.04 X1000 (0.0-0.04); IMM GRAN% 0.3 % (0.0-0.5); LYMPH# 1.92 X1000 (1.2-3.4); LYMPH% 13.6 % (20.5-51.1); MCH 26.6 PG (27-31); MCHC 30.1 g/dL (33-37); MCV 88.3 FL (81-99); MPV 11.7 FL (7.4-10.4); NEUT# 11.19 X1000 (1.4-6.5); NEUT% 79.1 % (42.2-75.2); PLT 262 X1000 (130-400); RBC 4.18 XMIL (4.2-5.4); RDW 14.9 % (11.5-14.5); WBC 14.13 X1000 (4.8-10.8)
[2019-07-29] MEDS ORDERED: ZOSYN 3.375 GM in NS 50 ML IV ONE (04:08)
--- NOTE | 2019-07-29 04:14 | PROVIDER DOCUMENTATION ---
This chart was entered by Hellen Cai Scribe, acting as scribe for Jory Cleary DO. HPI-General Adult <Rodolfo Calderon - Last Filed: 07/29/19 16:48> - General Source: patient - History of Present Illness -Gen Adult Nature of Presenting Problems: pt is a 68 yr old female presenting via EMS from home, per EMS pt family found pt pale, diaphoretic, AMS. EMS reports initial SPo2 78% on RA. pt admits cough, dark sputum x 3 days. Location of Pain/Injury: reports: none Pain Radiation: reports: no radiation Quality of Pain: reports: none Severity: reports: moderate Onset/Duration: reports: 3 days ago Timing: reports: changing over time, getting worse Context/Activities at Onset: reports: light activity Modifying Factors: improves with: nothing Associated Symptoms: reports: cough, fatigue, fever/chills, sinus congestion/drainage, nausea, shortness of breath, vomiting, weakness. denies: chest pain Similar Symptoms Previously?: No Recently seen or treated by another doctor?: No <Jory Cleary - Last Filed: 08/02/19 20:27> - General Chief Complaint: Altered Mental Status Stated Complaint: AMS Time Seen by Provider: 07/29/19 00:35 Allergies/Adverse Reactions: Patient Allergies Allergy/AdvReac Type Severity Reaction Status Date / Time No Known Allergies Allergy Verified 07/29/19 02:00 Home Medications: Home Medication List Medication Instructions Recorded Confirmed Last Taken Type Aspirin [Aspir-Low] 81 mg PO HS 11/20/17 07/30/19 07/29/19 History Fenofibrate [Tricor] 40 mg PO HS 11/20/17 07/30/19 07/29/19 History Furosemide 40 mg PO DAILY 11/20/17 07/30/19 07/29/19 History Gabapentin 600 mg PO BID 11/20/17 07/30/19 07/29/19 History Metformin [Glucophage] 500 mg PO TID 11/20/17 07/30/19 07/29/19 History Omeprazole 40 mg PO DAILY@0600 11/20/17 07/30/19 07/29/19 History Alprazolam 0.5 mg PO QHS 10/21/18 07/29/19 07/28/19 History Duloxetine [Cymbalta] 60 mg PO DAILY 10/21/18 07/30/19 07/29/19 History Losartan [Cozaar] 50 mg PO DAILY 10/21/18 07/30/19 07/29/19 History Prednisone 15 mg PO DAILY 10/21/18 02/14/19 Unknown History Hydrocodone Bit/Acetaminophen 1 tab PO TID PRN PRN 02/14/19 07/29/19 07/28/19 History [Hydrocodon-Acetaminophn 10-325] Apixaban [Eliquis] 5 mg PO BID #60 tab 02/19/19 07/30/19 07/29/19 Rx Review of Systems - Adult - REVIEW OF SYSTEMS - ADULT Constitutional: reports: fatique. denies: chills, fever Eyes: reports: no symptoms reported Ears, Nose, Mouth & Throat: reports: no symptoms reported Cardiovascular: denies: chest pain, syncope Respiratory: reports: cough, dyspnea on exertion, excessive sputum production, shortness of breath, wheezing Gastrointestinal: reports: nausea, vomiting Genitourinary: reports: no symptoms reported Musculoskeletal: reports: no symptoms reported Integumentary: reports: no symptoms reported Neurological: reports: no symptoms reported Psychiatric: reports: no symptoms reported Endocrine: reports: no symptoms reported Hematologic/Lymphatic: reports: no symptoms reported Allergic/Immunologic: reports: no symptoms reported All Other Systems: Reviewed and Negative <Jory Cleary - Last Filed: 08/02/19 20:27> Past History - Adult - PAST MEDICAL HISTORY-ADULT Review of Records: reports: Old Records Reviewed, Nursing Assessment Review, Medications Reviewed, Social history reviewed & non-contributory. Major Childhood Illnesses: reports: denies history Cardiovascular: reports: CHF, HTN, hyperlipidemia, [place] Respiratory: reports: asthma, COPD Gastrointestinal: reports: denies history Obstetrical/Gynecological: reports: denies history Genitourinary: reports: denies history Musculoskeletal: reports: arthritis (RA), fibromyalgia, other (DJD) Neurological: reports: denies history Psychiatric: reports: anxiety Endocrine/Immune: reports: Diabetes Other Conditions: reports: denies history - PRIOR SURGERIES/PROCEDURES Surgical/Procedure History: reports: colonoscopy, orthopedic (extremity) - IMMUNIZATION STATUS Childhood Immunizations: See Nurse Assessment Flu Vaccine: See Nurse Assessment - FAMILY HISTORY Family History: reviewed, not pertinent - SOCIAL HISTORY Smoking: quit greater than 1 year Living Situation: family <Jory Cleary - Last Filed: 08/02/19 20:27> Physical Exam-General - CONSTITUTIONAL General Appearance: obese, slow to respond - EYES Eyes: PERRL/EOMI - HEAD, EARS, NOSE, MOUTH & THROAT HENMT: moist mucous membranes, normal ENT inspection - NECK Neck: non-tender, full range of motion, supple, normal inspection - RESPIRATORY Respiratory: decreased breath sounds, wheezing (diffuse), increased rate - CARDIOVASCULAR Cardiovascular: normal peripheral pulses, tachycardia - GASTROINTESTINAL (ABDOMEN) Abdominal Exam: non tender, soft - LYMPHATIC Lymphatic: no adenopathy - MUSCULOSKELETAL Extremity: normal range of motion, non-tender - SKIN Integumentary: diaphoresis - NEUROLOGIC Neurologic: grossly normal, no motor/sensory deficits <Jory Cleary - Last Filed: 08/02/19 20:27> Progress - PLAN OF CARE/RESULTS Progress/Plan/Lab Results: Vital Signs - 8 hr 07/29/19 03:11 07/29/19 03:20 07/29/19 03:30 Temperature Pulse Rate 113 H 107 H 110 H Respiratory Rate 17 25 H 25 H Blood Pressure 92/60 110/56 104/53 O2 Sat by Pulse Oximetry 100 100 100 07/29/19 03:45 07/29/19 03:55 07/29/19 04:10 Temperature 98.9 F Pulse Rate 108 H 112 H 115 H Respiratory Rate 28 H 24 25 H Blood Pressure 103/45 102/48 112/73 O2 Sat by Pulse Oximetry 99 100 100 07/29/19 04:25 07/29/19 04:30 07/29/19 04:36 Temperature Pulse Rate 114 H 112 H 98 H Respiratory Rate 24 27 H 19 Blood Pressure 94/45 97/51 92/52 O2 Sat by Pulse Oximetry 98 99 98 07/29/19 04:45 07/29/19 04:55 07/29/19 05:05 Temperature Pulse Rate 122 H 93 H 119 H Respiratory Rate 25 H 33 H 26 H Blood Pressure 112/63 100/61 100/73 O2 Sat by Pulse Oximetry 97 99 100 07/29/19 05:15 07/29/19 05:25 07/29/19 05:30 Temperature Pulse Rate 98 H 119 H 107 H Respiratory Rate 23 19 22 Blood Pressure 97/58 106/54 100/65 O2 Sat by Pulse Oximetry 100 100 100 07/29/19 05:45 07/29/19 06:00 07/29/19 06:15 Temperature Pulse Rate 117 H 100 H 99 H Respiratory Rate 23 29 H 23 Blood Pressure 105/64 96/47 96/59 O2 Sat by Pulse Oximetry 100 100 100 07/29/19 06:30 07/29/19 06:45 07/29/19 07:15 Temperature 98.4 F Pulse Rate 99 H 94 H 92 H Respiratory Rate 23 23 22 Blood Pressure 98/64 107/49 101/61 O2 Sat by Pulse Oximetry 100 100 07/29/19 07:53 07/29/19 08:11 07/29/19 08:23 Temperature Pulse Rate 106 H 98 H 96 H Respiratory Rate 25 H 24 24 Blood Pressure 125/64 129/75 108/70 O2 Sat by Pulse Oximetry 100 99 96 07/29/19 08:32 07/29/19 08:47 07/29/19 08:54 Temperature Pulse Rate 108 H 95 H 104 H Respiratory Rate 26 H 13 20 Blood Pressure 128/71 118/79 137/61 O2 Sat by Pulse Oximetry 96 100 96 07/29/19 09:12 07/29/19 09:32 07/29/19 09:43 Temperature 98.7 F Pulse Rate 111 H 123 H 123 H Respiratory Rate 23 26 H 26 H Blood Pressure 141/65 127/63 159/76 O2 Sat by Pulse Oximetry 100 100 96 07/29/19 09:54 07/29/19 10:03 07/29/19 10:35 Temperature Pulse Rate 126 H 123 H 131 H Respiratory Rate 25 H 28 H 34 H Blood Pressure 162/72 148/62 161/91 O2 Sat by Pulse Oximetry 96 96 91 L 07/29/19 10:59 07/29/19 11:04 Temperature Pulse Rate 135 H 132 H Respiratory Rate 36 H 24 Blood Pressure 124/70 O2 Sat by Pulse Oximetry 94 L 94 L Laboratory Results - last 24 hr 07/29/19 07/29/19 07/29/19 00:25 00:28 00:28 WBC 14.13 H RBC 4.18 L Hgb 11.1 L Hct 36.9 L MCV 88.3 MCH 26.6 L MCHC 30.1 L RDW Std Deviation 14.9 H Plt Count 262 MPV 11.7 H Immature Gran % (Auto) 0.3 Neut % (Auto) 79.1 H Lymph % (Auto) 13.6 L [place] % (Auto) 5.0 Eos % (Auto) 1.8 Baso % (Auto) 0.2 Immature Gran # (Auto) 0.04 Neut # (Auto) 11.19 H Lymph # (Auto) 1.92 [place] # (Auto) 0.70 H Eos # (Auto) 0.25 Baso # (Auto) 0.03 PT 14.5 INR 1.07 PTT (Actin FS) 29.7 Sodium 137 Potassium 4.3 Chloride 94 L Carbon Dioxide 25 Anion Gap 17 BUN 26 H Creatinine 0.8 Estimated GFR/1.73 m2 > 60 BUN/Creatinine Ratio 33 Glucose 245 H POC Glucose Calculated Osmolality 287 Calcium 10.1 Total Bilirubin 1.10 H AST 38 H ALT 18 Alkaline Phosphatase 79 Creatine Kinase 46 Troponin T Hhh-K-Cctopcvgfsh Pept Total Protein 6.9 Albumin 4.1 Globulin 3.0 Albumin/Globulin Ratio 1.0 Plasma Lactate Urine Source Urine Color Urine Turbidity Urine pH Ur Specific Tea Urine Protein Ur Glucose (Stick) Ur Ketones (Stick) Urine Blood Urine Nitrite Urine Bilirubin Urobilinogen Dipstick Urine Leukocytes Urine WBC (Auto) Urine RBC (Auto) U Epithel Cells (Auto) Urine Bacteria (Auto) 07/29/19 07/29/19 07/29/19 00:28 00:28 00:28 WBC RBC Hgb Hct MCV MCH MCHC RDW Std Deviation Plt Count MPV Immature Gran % (Auto) Neut % (Auto) Lymph % (Auto) [place] % (Auto) Eos % (Auto) Baso % (Auto) Immature Gran # (Auto) Neut # (Auto) Lymph # (Auto) [place] # (Auto) Eos # (Auto) Baso # (Auto) PT INR PTT (Actin FS) Sodium Potassium Chloride Carbon Dioxide Anion Gap BUN Creatinine Estimated GFR/1.73 m2 BUN/Creatinine Ratio Glucose POC Glucose Calculated Osmolality Calcium Total Bilirubin AST ALT Alkaline Phosphatase Creatine Kinase Troponin T < 0.010 Dgj-A-Ydyhrfdwawz Pept 1879 H Total Protein Albumin Globulin Albumin/Globulin Ratio Plasma Lactate 3.8 H Urine Source Urine Color Urine Turbidity Urine pH Ur Specific Tea Urine Protein Ur Glucose (Stick) Ur Ketones (Stick) Urine Blood Urine Nitrite Urine Bilirubin Urobilinogen Dipstick Urine Leukocytes Urine WBC (Auto) Urine RBC (Auto) U Epithel Cells (Auto) Urine Bacteria (Auto) 07/29/19 07/29/19 07/29/19 00:34 01:10 03:42 WBC RBC Hgb Hct MCV MCH MCHC RDW Std Deviation Plt Count MPV Immature Gran % (Auto) Neut % (Auto) Lymph % (Auto) [place] % (Auto) Eos % (Auto) Baso % (Auto) Immature Gran # (Auto) Neut # (Auto) Lymph # (Auto) [place] # (Auto) Eos # (Auto) Baso # (Auto) PT INR PTT (Actin FS) Sodium Potassium Chloride Carbon Dioxide Anion Gap BUN Creatinine Estimated GFR/1.73 m2 BUN/Creatinine Ratio Glucose POC Glucose 232 H Calculated Osmolality Calcium Total Bilirubin AST ALT Alkaline Phosphatase Creatine Kinase Troponin T Gaq-H-Kndgghjdbgp Pept Total Protein Albumin Globulin Albumin/Globulin Ratio Plasma Lactate 4.4 H* Urine Source CATH Urine Color YELLOW Urine Turbidity HAZY Urine pH 6.0 Ur Specific Tea 1.015 Urine Protein 50 A Ur Glucose (Stick) NEGATIVE Ur Ketones (Stick) NEGATIVE Urine Blood TRACE A Urine Nitrite POSITIVE A Urine Bilirubin NEGATIVE Urobilinogen Dipstick NORMAL Urine Leukocytes LARGE A Urine WBC (Auto) TNTC A Urine RBC (Auto) <10 U Epithel Cells (Auto) <10 Urine Bacteria (Auto) 4+ 07/29/19 07/29/19 06:35 09:20 WBC RBC Hgb Hct MCV MCH MCHC RDW Std Deviation Plt Count MPV Immature Gran % (Auto) Neut % (Auto) Lymph % (Auto) [place] % (Auto) Eos % (Auto) Baso % (Auto) Immature Gran # (Auto) Neut # (Auto) Lymph # (Auto) [place] # (Auto) Eos # (Auto) Baso # (Auto) PT INR PTT (Actin FS) Sodium Potassium Chloride Carbon Dioxide Anion Gap BUN Creatinine Estimated GFR/1.73 m2 BUN/Creatinine Ratio Glucose POC Glucose 267 H Calculated Osmolality Calcium Total Bilirubin AST ALT Alkaline Phosphatase Creatine Kinase Troponin T Wyc-D-Fkeugjafwsr Pept Total Protein Albumin Globulin Albumin/Globulin Ratio Plasma Lactate 2.6 H Urine Source Urine Color Urine Turbidity Urine pH Ur Specific Tea Urine Protein Ur Glucose (Stick) Ur Ketones (Stick) Urine Blood Urine Nitrite Urine Bilirubin Urobilinogen Dipstick Urine Leukocytes Urine WBC (Auto) Urine RBC (Auto) U Epithel Cells (Auto) Urine Bacteria (Auto) Orders Category Date Time Status Admit - [facility] Routine AdmDCTranf 07/29/19 06:47 Active Cardiac Monitoring DIRECTED Care 07/29/19 00:34 Active [place] Insertion ORDERED Care 07/29/19 00:58 Active Notify MD of + Sepsis Screen NOW Care 07/29/19 00:34 Active CHEST-1 VIEW [RAD] Stat Exams 07/29/19 00:34 Completed CHEST-1 VIEW [RAD] Stat Exams 07/29/19 10:15 Completed ABG [RESP] Routine Lab 07/29/19 10:33 Ordered BLOOD CULTURE [BLDCUL] Stat Lab 07/29/19 00:38 Ordered CBC WITH DIFF [HEME] Stat Lab 07/29/19 00:25 Completed CK PROFILE [SP CHEM] Stat Lab 07/29/19 00:28 Completed COMPREHENSIVE METABOLIC PANEL [CHEM] Stat Lab 07/29/19 00:28 Completed LACTATE, PLASMA [CHEM] Lab 07/29/19 03:42 Completed LACTATE, PLASMA [CHEM] Lab 07/29/19 06:35 Completed LACTATE, PLASMA [CHEM] Stat Lab 07/29/19 00:28 Completed PRO B-NATRIURETIC PEPTIDE Stat Lab 07/29/19 00:28 Completed PROTIME WITH INR [COAG] Stat Lab 07/29/19 00:28 Completed PTT [COAG] Stat Lab 07/29/19 00:28 Completed TROPONIN T Stat Lab 07/29/19 00:28 Completed URINALYSIS W/POSS RFLX CULT [URINALYSIS] Stat Lab 07/29/19 01:10 Completed URINE CULTURE [RM] Routine Lab 07/29/19 01:39 Ordered URINE DRUG SCREEN PL Stat Lab 07/29/19 11:04 Uncollected 0.9% Sodium Chloride Inj [Ns] 1,000 ml Med 07/29/19 01:33 Discontinued .ROUTE As directed 0.9% Sodium Chloride Inj [Ns] 1,000 ml Med 07/29/19 01:34 Discontinued IV 999 mls/hr 0.9% Sodium Chloride Inj [Ns] 1,000 ml Med 07/29/19 01:44 Discontinued IV 999 mls/hr Albuterol 2.5MG/Ipratrop 0.5MG [Duoneb (A & A)] Med 07/29/19 10:49 Discontinued 3 ml .ROUTE .STK-MED ONE Albuterol 2.5MG/Ipratrop 0.5MG [Duoneb (A & A)] Med 07/29/19 10:58 Discontinued 3 ml INH NOW ONE Albuterol [Albuterol Neb] Med 07/29/19 00:45 Discontinued 2.5 mg .ROUTE .STK-MED ONE Albuterol [Albuterol Neb] Med 07/29/19 00:46 Discontinued 2.5 mg INH NOW ONE Dextrose 5%-0.45% NaCl Inj [D5 1/2 Ns] 250 ml Med 07/29/19 02:30 Discontinued Norepinephrine [Levophed] 8 mg IV As Directed mls/hr Dextrose 5%-0.45% NaCl Inj [D5 1/2 Ns] 250 ml Med 07/29/19 07:00 Active Norepinephrine [Levophed] 8 mg IV As Directed mls/hr Dextrose 5%-0.45% NaCl Inj [D5 1/2 Ns] 250 ml Med 07/29/19 02:19 Discontinued .ROUTE As directed Diltiazem [Cardizem] Med 07/29/19 00:37 Discontinued 10 mg IV NOW ONE Furosemide [Lasix] Med 07/29/19 11:02 Discontinued 80 mg IV NOW ONE Levofloxacin 750 mg/D5w [Levaquin 750 mg/D5w] Med 07/29/19 01:31 Discontinued 750 mg in 150 ml IV NOW Nitroglycerin Med 07/29/19 11:02 Discontinued 1 inch TOP NOW ONE Norepinephrine [Levophed] Med 07/29/19 02:17 Discontinued 4 mg .ROUTE .STK-MED ONE Piperacillin/Tazobactam [Zosyn] 3.375 gm Med 07/29/19 04:08 Discontinued 0.9% Sodium Chloride Inj [Ns] 50 ml IV NOW Aerosol Treatments Routine Oth 07/29/19 00:48 Completed Aerosol Treatments Stat Oth 07/29/19 00:48 Completed Aerosol Treatments Stat Oth 07/29/19 10:58 Completed BIPAP Stat Ot 07/29/19 10:33 Active Oxygen Device Stat Ot 07/29/19 00:34 Completed Transfer/Admit Order [TRANSFER] Routine Transfer 07/29/19 04:14 Completed Result Diagrams: 07/29/19 00:25 07/29/19 00:28 - REASSESSMENT Reassessment #1 Time Reassessed: 11:10 (assumed care @ [facility], was told was being admitted to [facility] [place] presumed [place]. Pt resp status is worse, placed on BiPap. BS show crackles both bases, L>R. Repeat CXR, increased PVC. NTP, lasix ordered. Familt say want transferred to [facility]) Status: worsening - EKG 2 Time of EKG reading by physician:: 07:56 EKG Read and Signed by:: Rodolfo Calderon EKG Interpretation (*Must complete 3 of following elements*): Abnormal Rate: 94 Rhythm: NSR QRS: poor R wave progression (ant leads), other (low voltage QRS, occ PVC.) Prior EKG Comparison: changes noted (rate has slowed since 0027) - XRAY 1 XRAY Study: Chest Impression: Abnormal (EXAM: CHEST-1 VIEW HISTORY: sob TECHNIQUE: Single vie w COMPARISON: 02/19/2019 FINDINGS: Poor inspiratory effort. Heart is borderline mildly prominent. Mild increased interstitial markings. No consolidation. Pleural effusions identified. IMPRESSION: Mild increased interstitial markings representing fibrosis or mild pulmonary edema Electronically signed by Ronnie Collins 07/29/2019 7:44 AM 07/29/19 0744 Interpreting Physician: Ronnie Collins MD Dictated Date/Time: 07/29/19 0743 cc: Jory Cleary DO; None,PCP) XRAY Interpretation: EXAM: CHEST-1 VIEW 2 XRAY Study: Chest Impression: Abnormal (EXAM: CHEST-1 VIEW HISTORY: shortness of breath TECHNIQUE: Single view COMPARISON: 07/29/2019 FINDINGS: Poor inspiratory effort. The heart remains mildly prominent. Mild increased interstitial markings similar to the prior study. No consolidation. No pleural effusions identified. IMPRESSION: Stable chest Electronically signed by Ronnie Collins 07/29/2019 11:00 AM 07/29/19 1100 Interpreting Physician: Ronnie Collins MD Dictated Date/Time: 07/29/19 1059 cc: Rosales Christie; None,PCP) XRAY Interpretation: EXAM: CHEST-1 VIEW - CONSULTS/PCP/HOSPITALIST Notification #1 *Consult/PCP/Hospitalist*: Hospitalist Reason/Comments: Accepted to [place] @ [facility] [place]2 Consult: [facility] Time Discussed: 11:20 Reason/Comments: ICU full, no beds #3 Consult: [facility] Time Discussed: 12:40 Reason/Comments: not able to accept @ this time <Rodolfo Calderon - Last Filed: 07/29/19 16:48> - PLAN OF CARE/RESULTS Progress/Plan/Lab Results: Vital Signs - 8 hr 07/29/19 00:25 Pulse Rate 130 H Respiratory Rate 40 H Blood Pressure 139/82 O2 Sat by Pulse Oximetry 93 L Laboratory Results - last 24 hr 07/29/19 00:34 POC Glucose 232 H Orders Category Date Time Status Cardiac Monitoring DIRECTED Care 07/29/19 00:34 Notify MD of + Sepsis Screen NOW Care 07/29/19 00:34 CHEST-1 VIEW [RAD] Stat Exams 07/29/19 00:34 Ordered BLOOD CULTURE [BLDCUL] Stat Lab 07/29/19 00:38 Ordered CBC WITH DIFF [HEME] Stat Lab 07/29/19 00:34 Ordered CK PROFILE [SP CHEM] Stat Lab 07/29/19 00:34 Ordered COMPREHENSIVE METABOLIC PANEL [CHEM] Stat Lab 07/29/19 00:34 Ordered LACTATE, PLASMA [CHEM] Q3H Lab 07/29/19 00:36 Ordered LACTATE, PLASMA [CHEM] Q3H Lab 07/29/19 03:45 Uncollected LACTATE, PLASMA [CHEM] Q3H Lab 07/29/19 06:45 Uncollected LACTATE, PLASMA [CHEM] Stat Lab 07/29/19 00:38 Ordered PROTIME WITH INR [COAG] Stat Lab 07/29/19 00:34 Ordered PTT [COAG] Stat Lab 07/29/19 00:34 Ordered TROPONIN T Stat Lab 07/29/19 00:34 Ordered URINALYSIS W/POSS RFLX CULT [URINALYSIS] Stat Lab 07/29/19 00:34 Uncollected Diltiazem [Cardizem] Med 07/29/19 00:37 Discontinued 10 mg IV NOW ONE Oxygen Device Stat Oth 07/29/19 00:34 Active The pt's O2 sat improved with NRB 100% and neb tx. She stated feeling better as well. IV fluids at bolus rate initiated. She appears to have a lingular infiltrate and does also have a UTI. Her latic is 3.8. She was empirically given Levaquin and Zosyn, admitted to ICU at . Her BP went down despite fluid resus and she was thus started on Levophed. She did not show signs of pending resp arrest and airway remained intact. Result Diagrams: 08/02/19 05:45 08/02/19 05:45 - EKG 1 Time of EKG reading by physician:: 00:30 EKG Read and Signed by:: Jory Cleary EKG Interpretation (*Must complete 3 of following elements*): Abnormal (non specific st abnormality) Rate: 86 Rhythm: nst [place]: normal QRS: normal [place] Interval: prolonged <Jory Cleary - Last Filed: 08/02/19 20:27> Departure - Departure Certified Medical Emergency: Emergent - Critical Care Note This patient required my direct & personal management of CC.: Yes Total Time (mins): 45 Critical Care Statement: This patient required my direct personal management to treat or rule out processes, the absence of which, could potentiallly result in sudden, clinically significant life or limb threatening deterioration. <Rodolfo Calderon - Last Filed: 07/29/19 16:48> - Departure Date of Disposition Decision: 07/29/19 Time of Disposition Decision: 04:14 Certified Medical Emergency: Emergent - Critical Care Note This patient required my direct & personal management of CC.: Yes <Jory Cleary - Last Filed: 08/02/19 20:27> - Departure DIAGNOSIS: Sepsis Qualifiers: Sepsis type: sepsis due to unspecified organism Sepsis acute organ dysfunction status: unspecified Qualified Code(s): A41.9 - Sepsis, unspecified organism UTI (urinary tract infection) Qualifiers: Urinary tract infection type: site unspecified Hematuria presence: without hematuria Qualified Code(s): N39.0 - Urinary tract infection, site not specified Disposition: ADMITTED INPATIENT 09 Condition: Good Attestation - Physician/ TAWNYA Attestation Patient care was provided by Advanced Practice Provider:: No The physician spent face to face time with patient:: Yes Advanced Practice Provider documentation review:: Supervising physician onsite and consulted in the evaluation and care of this patient. The physician did have a face to face encounter with the patient. <Rodolfo Calderon - Last Filed: 07/29/19 16:48> - Physician/ TAWNYA Attestation The physician spent face to face time with patient:: Yes Advanced Practice Provider documentation review:: Supervising physician onsite and consulted in the evaluation and care of this patient. The physician did have a face to face encounter with the patient. <Jory Cleary - Last Filed: 08/02/19 20:27> This chart was documented by the indicated scribe, (Hellen Cai, Randellibdayan) and accurately reflects the services I performed and decisions made by me, Jory Cleary, DO, as attested by the provider's signature.
[2019-07-29] MEDS ORDERED: LEVOPHED 8 MG in D5 1/2 NS 250 ML IV SCH (07:00)
--- NOTE | 2019-07-29 07:46 | Diag Imaging Result Doc PS360 ---
EXAM: CHEST-1 VIEW HISTORY: sob TECHNIQUE: Single view COMPARISON: 02/19/2019 FINDINGS: Poor inspiratory effort. Heart is borderline mildly prominent. Mild increased interstitial markings. No consolidation. Pleural effusions identified. IMPRESSION: Mild increased interstitial markings representing fibrosis or mild pulmonary edema Electronically signed by Ronnie Collisn 07/29/2019 7:44 AM
[2019-07-29] MEDS ORDERED: DUONEB (A & A) ONE (10:49)
[2019-07-29] MEDS ORDERED: DUONEB (A & A) INH ONE (10:58)
[2019-07-29] MEDS ORDERED: LASIX IV ONE (11:02)
[2019-07-29] MEDS ORDERED: NITROGLYCERIN TOP ONE (11:02)
--- NOTE | 2019-07-29 11:02 | Diag Imaging Result Doc PS360 ---
EXAM: CHEST-1 VIEW HISTORY: shortness of breath TECHNIQUE: Single view COMPARISON: 07/29/2019 FINDINGS: Poor inspiratory effort. The heart remains mildly prominent. Mild increased interstitial markings similar to the prior study. No consolidation. No pleural effusions identified. IMPRESSION: Stable chest Electronically signed by Ronnie Collins 07/29/2019 11:00 AM
[2019-07-29] MEDS ORDERED: TYLENOL PO PRN (11:11)
[2019-07-29] MEDS ORDERED: ZOFRAN IV PRN (11:13)
[2019-07-29] MEDS ORDERED: TOPROL XL PO ONE (11:15)
[2019-07-29] MEDS: NS 1,000 ML IV SCH (11:15)
[2019-07-29] MEDS: ZOSYN 3.375 GM in NS 50 ML IV SCH ×3 (11:38→23:21)
[2019-07-29 13:21] LABS: BE 3.1 mmoll (-3.0-3.0); BLOOD TYPE ARTERIAL; HCO3-(ACT) 27.3 mmoll (20.0-26.0); METHB 1.3 % (0.0-1.5); O2HB 95.5 % (95.0-99.0); PCO2(98.6) 37 mmHg (35-45); PO2(98.6) 101 mmHg (60-100); SAMPLE BLOOD; SAO2 99.5 % (95.0-100.0); SRATE 20 BPM; THB 10.3 g/dL (11.5-17.4); pH(98.6) 7.47 (7.35-7.45)
[2019-07-29 13:23] LABS: MODALITY BI PAP
[2019-07-29 13:24] LABS: ALLEN TEST NO
[2019-07-29] MEDS ORDERED: VANCOMYCIN IV PER PHARMACY MISC SCH (14:30)
[2019-07-29] MEDS ORDERED: NS NEB INH SCH (15:15)
[2019-07-29] MEDS: XOPENEX NEB INH SCH ×2 (15:39→22:02)
[2019-07-29] MEDS: ATROVENT NEB INH SCH ×2 (15:39→22:02)
[2019-07-29] MEDS: SOLU-CORTEF IV SCH ×2 (15:42→22:00)
[2019-07-29] MEDS ORDERED: CARDIZEM ONE (15:52)
--- NOTE | 2019-07-29 15:52 | HISTORY AND PHYSICAL ---
PRIMARY CARE PROVIDER: Dr. Anurag Weathers. CHIEF COMPLAINT: Vomiting, chills and shortness of breath. HISTORY OF PRESENT ILLNESS: Ms. Simran Oropeza is a 68-year-old female with a medical history of COPD, but does not have oxygen at home. Also, history of atrial fibrillation, CHF, rheumatoid arthritis, diabetes. She is immunocompromised as well as she takes Humira for her rheumatoid arthritis. Her last dose was 2 days ago. Yesterday evening around 7:30 or 8 p.m., her son came home. They ate and then he noticed she went to lay down and was having chills and they went back to check on her again. She was throwing up. He gave her Theraflu and 30 minutes later checked on her again, and she was having rigors, had become delirious. She states she has had a cough with strange phlegm. She denies any urinary symptoms, but urinalysis appears to be a UTI, and she is here with signs and symptoms of septic shock, along with pulmonary edema on top of that. So, she is going to get broad-spectrum antibiotics. She has received Lasix because of the pulmonary edema. Her atrial fibrillation is now with a rapid ventricular response, and she will be on a Cardizem drip for that. So, she is on a Levophed drip for the low blood pressure, Cardizem drip for the high heart rate, and she is on BiPAP for the respiratory insufficiency, failure or hypoxia. We are going to get a CT scan and were also going to send her to the ICU at [facility]. PAST MEDICAL HISTORY: 1. Systolic congestive heart failure. 2. COPD. No home oxygen. 3. Rheumatoid arthritis on Humira, which she received 2 days ago. 4. Immunocompromised secondary to Humira for RA. 5. Atrial fibrillation, unknown if it is paroxysmal or chronic. 6. Fibromyalgia. 7. Chronic anxiety. 8. Diabetes mellitus type 2. SURGICAL HISTORY: None. SOCIAL HISTORY: Quit smoking in 2007; prior to that she is a 1 pack per day smoker since the age of 15. Denies alcohol or illicit drug use. She has 2 sons that live with her. FAMILY HISTORY: Mother had congestive heart failure and diabetes. Her father at the age of 42 from scleroderma. ALLERGIES: No known drug allergies. HOME MEDICATIONS: Listed, though still has not been reconciled is: Xanax, aspirin losartan, Cymbalta, Lasix Neurontin, metformin, Jefferson, omeprazole, prednisone, fenofibrate, Eliquis, sitagliptin, cefdinir and flecainide, but she claims she also takes Humira and that is not on here listed, so will need to get her home medications updated. REVIEW OF SYSTEMS: Difficult to obtain. She was taking her BiPAP mask on and off. She denied any pain. She did admit to having some shortness of breath, and she admitted to just feeling bad over all, body ache and just generally feeling poor. PHYSICAL EXAMINATION: VITAL SIGNS: Temperature 98.7 degrees, heart rate 132, respiratory rate 22, blood pressure 131/55, O2 saturation 98% on BiPAP. GENERAL: Ms. Simran Oropeza is a 68-year-old female. She is in mild distress actually, but she is still able to answer some questions appropriately. HEENT: Atraumatic, normocephalic. Pupils equal, round, reactive to light. Extraocular movements intact. Mucous membranes are moist. NECK: Trachea midline. CARDIOVASCULAR: S1, S2. Regular rate and rhythm. No rubs, gallops, murmurs. Trace lower extremity edema. +2 dorsalis and radial pulses. Negative for JVD or carotid bruits. Her hands and feet are both cool, but the extremities are warm. PULMONARY: Decreased in the bases. Mild accessory muscle use. Mild work of breathing. Not tolerating BiPAP extremely well. She likes to hold it to her face, instead of having it directly on as a BiPAP mask should be. GI: Soft, nontender, nondistended. Positive bowel sounds x4. EXTREMITIES: Decreased range of motion. Generalized weakness about 4/5 strength. NEUROLOGIC: Oriented to name, otherwise would follow commands. Sensory was intact. SKIN: Warm, dry, intact. Feet and hands were cool and she was pale. LABORATORY DATA: White blood cells 14,000, hemoglobin 11, hematocrit 36, platelet count 262. INR is 1.07, PTT 29.7. ABGs: A pH 7.47, pCO2 37, PO2 101, bicarbonate 27, base excess 3.1, saturation 95%, lactate 2.2. The BiPAP settings 18/8, FiO2 40% with a rate of 20. Sodium 137, potassium 4.3, BUN 26, creatinine 0.8, glucose 245, calcium 10. Bilirubin is 1.10, AST 38, ALT 18, CK 46, troponin less than 0.01. ProBNP 1879. Albumin is 4.1. Lactate trend is 3.8, then 4.4 and is down to 2.6. Urinalysis: 50 protein, trace blood, positive nitrites, large leukocytes, too numerous to count white blood cells, 4+ bacteria. IMAGIN. Chest x-ray 0030 hours: Mild increased interstitial markings representing fibrosis or mild pulmonary edema. Chest x-ray at 10:15 today: Stable chest. 2. EKG: I have ordered a new 1, but on telemetry she is atrial fibrillation with rapid ventricular response, and her heart rate is anywhere from 130 to 160s with some PVCs. ASSESSMENT AND PLAN: 1. Atrial fibrillation with rapid ventricular response. She will be started on Cardizem drip along with the Levophed because she is hypotensive as well. She is not getting aggressive intravenous fluid hydration because she also has signs and symptoms of congestive heart failure as well. It looks like she has been on Eliquis, not sure if she is still on it. Again, we are just waiting for home medications to be reconciled. 2. Septic shock. Source of infection could possibly be pneumonia, as there is definitely a urinary tract infection, but she denies symptoms of urinary tract infection. She will be on broad-spectrum antibiotics. We will consider doing hydrocortisone 100 mg q. 8 hours x3 to help her immune system. Maybe this will help with her blood pressure as well, and again she is on antibiotics. 3. Acute respiratory failure with chronic obstructive pulmonary disease exacerbation, although she is not retaining CO2, it is more hypoxia. She has a BiPAP on. We will do a Pulmonary consultation. She is not really wanting the BiPAP on. She will have nebulizers, intravenous steroids. 4. Urinary tract infection, but denies any symptoms such as painful urination, foul smelling urine, all those symptoms she is actually denying. We are going to get a culture. The antibiotics that she is on: She is on Zosyn that would actually cover for urinary tract infection. 5. Metabolic infectious encephalopathy. Hopefully will improve once her infection improves and her blood pressure improves. 6. Acute systolic congestive heart failure with pulmonary edema on x-ray. She got Lasix and she has a Cardiology consult. 7. Diabetes mellitus type 2 with hyperglycemia likely secondary to steroid dosing. She is on metformin at home. We are going to hold off on that. Will just do fingerstick blood sugars, sliding scale insulin, diabetic diet and heart diet. 8. Rheumatoid arthritis. She has already gotten her Humira, and that was 2 days ago. 9. Chronic anxiety. I believe she is on Xanax at home. Still waiting for that to be reconciled. 10. Deep venous thrombosis prophylaxis, looks like sequential compression devices for now, and she may need to get started on possibly weight-based Lovenox. We will resume her Eliquis, but will let Cardiology evaluate. Dictated by ALBINO Rivas for Preet Guerrero MD cc: ALBINO Rivas MD
[2019-07-29] MEDS: CARDIZEM 100 MG/NS 100 MG/100 ML IVPB IV SCH ×2 (15:55→22:49)
--- NOTE | 2019-07-29 16:35 | EKG Report ---
Test Performed on : 07/29/2019 07:52:58 AM Test Reason : svt Blood Pressure : / mmHG Vent. Rate : 094 BPM Atrial Rate : 094 BPM P-R Int : 162 ms QRS Dur : 088 ms QT Int : 348 ms P-R-T Axes : 155 -18 -10 degrees QTc Int : 435 ms NSR with PAC with premature supraventricular complexes. Low voltage QRS Septal infarct (cited on or before 17-FEB-2019) Abnormal ECG When compared with ECG of 29-JUL-2019 07:52, (Unconfirmed) Ectopic atrial rhythm. has replaced Sinus rhythm. Confirmed by James MCLAIN, P.J.M ([id number]) on 07/30/2019 2:56:39 PM
--- NOTE | 2019-07-29 16:59 | HISTORY AND PHYSICAL ---
ADDENDUM: Patient seen and examined by myself. Full note dictated and discussed with nurse practitioner. HISTORY OF PRESENT ILLNESS: The patient presented to the hospital via her calling the ambulance. The entire history is per the currently. The patient's notes that she started coughing a couple of days ago. Last night, cough became worse. She became more short of breath. He noted that she became very weak. He became concerned and called the ambulance. While in the ER, she has been placed on BiPAP. Her blood pressures were low and she is in septic shock. She does appear to have a urinary tract infection. We are going to admit her to the hospital ICU. She has a known history of rheumatoid arthritis, on Humira. This certainly could be affecting her current illness. She also has been on steroids 10 mg daily for quite some time per the son. We are going to place her on Solu-Cortef for stress dose steroids as she certainly could have adrenal suppression as well, which could be affecting her hypotension and overall illness. We are going to place her on Zosyn and vancomycin. Check blood culture, urine culture, and sputum culture. She does have a history of atrial fibrillation and I believe a cardioversion. Currently, she is tachycardic in the 130s to 150s. We are going to place her on IV Cardizem as she tolerates it, and we will follow. cc: Preet Guerrero MD
[2019-07-29] MEDS ORDERED: VANCOMYCIN 2,000 MG in NS 500 ML IV ONE (17:00)
[2019-07-29] MEDS: HUMULIN R SUBQ SCH ×2 (17:00→22:00)
[2019-07-29] MEDS: PULMICORT INH SCH (22:00)
[2019-07-29] MEDS: XANAX PO PRN (22:01)
--- NOTE | 2019-07-29 22:02 | Diag Imaging Result Doc PS360 ---
EXAM: CT THORAX/ABD/PELVIS W/O CON HISTORY: resp failure; septic shock; vomiting TECHNIQUE: 1. CT chest without contrast 2. CT abdomen and pelvis without contrast COMPARISON: Chest compared to 10/21/2018 FINDINGS: Chest: No effusions. No cardiomegaly. Prominent atherosclerosis. Small calcified and noncalcified mediastinal nodes. Left lower lobe calcified granuloma. Small groundglass infiltrates. No consolidation. No bronchiectasis. Abdomen and pelvis: Small hiatal hernia. Prominent fatty infiltration of the liver. No splenomegaly. No inflammation about the pancreas. The gallbladder is small or has been removed. Normal adrenal glands. No renal stones. No hydronephrosis. Prominent atherosclerosis. No aortic aneurysm. Normal appendix. No abscess. No bowel obstruction. There are scattered colonic diverticula. Normal uterus and ovaries. There is a Banks catheter in the urinary bladder. L5 pars defects. IMPRESSION: Chest: 1. Small groundglass infiltrates 2. Severe atherosclerosis Abdomen and pelvis: 1. Prominent fatty infiltration of the liver 2. Colonic diverticulosis 3. Prominent atherosclerosis This exam was performed using automated exposure control, adjustment of mA or kV according to patient size, and/or use of iterative reconstruction technique. Electronically signed by Ronnie Collins 07/29/2019 10:00 PM
[2019-07-30] MEDS: NORCO-10 PO PRN ×3 (03:06→21:29)
[2019-07-30] MEDS: CARDIZEM 100 MG/NS 100 MG/100 ML IVPB IV SCH ×3 (03:06→18:59)
[2019-07-30] MEDS: XOPENEX NEB INH SCH ×4 (03:25→22:35)
[2019-07-30] MEDS: ATROVENT NEB INH SCH ×4 (03:25→22:35)
[2019-07-30] MEDS: NS 1,000 ML IV SCH ×2 (04:43→14:27)
[2019-07-30] MEDS: ZOSYN 3.375 GM in NS 50 ML IV SCH ×4 (05:14→23:11)
[2019-07-30] MEDS: SOLU-CORTEF IV SCH ×3 (06:23→23:12)
[2019-07-30 07:08] LABS: HEMATOCRIT 30.4 % (37.0-47.0); HEMOGLOBIN 8.9 g/dL (12.0-16.0); MCH 26.1 PG (27-31); MCHC 29.3 g/dL (33-37); MCV 89.1 FL (81-99); MPV 11.5 FL (7.4-10.4); RBC 3.41 XMIL (4.2-5.4); RDW 14.7 % (11.5-14.5); WBC 17.45 X1000 (4.8-10.8)
[2019-07-30 07:27] LABS: AGAP 15; ALB/GLOB RATIO 0.9; ALBUMIN 2.7 g/dL (3.5-5.0); ALKALINE PHOSPHATASE 52 U/L (32-104); BUN 26 mg/dL (8-22); CALCIUM 8.4 mg/dL (8.8-10.2); CHLORIDE 98 mmol/L (98-107); COSMO 288; CREATININE 0.8 mg/dL (0.5-0.9); ESTIMATED GFR > 60; GLUCOSE 233 mg/dL (70-104); GOT 138 U/L (10-30); GPT 40 U/L (10-36); POTASSIUM 3.1 mmol/L (3.5-5.1); SODIUM 138 mmol/L (136-145); TCO2 25 mmol/L (25-35); TOTAL BILIRUBIN 0.79 mg/dL (0.20-1.00); TOTAL PROTEIN 5.7 g/dL (6.3-8.3)
[2019-07-30] MEDS: HUMULIN R SUBQ SCH ×4 (07:33→21:30)
[2019-07-30] MEDS ORDERED: POTASSIUM CHLORIDE 60 MEQ in NS 500 ML IV ONE (08:01)
[2019-07-30 08:40] LABS: HEMOGLOBIN A1C 6.9 % (4.8-6.0)
--- NOTE | 2019-07-30 09:56 | PROGRESS NOTE ---
DATE: 07/30/2019 SUBJECTIVE: Patient reports feeling fine. Reports mild shortness of breath. Denies any chest pain. No fever or chills. OBJECTIVE: Vital Signs: Temperature 98.5 degrees, heart rate 111, respiratory rate 20, blood pressure 124/65, O2 saturation 97% on 1 L nasal cannula. General: This is a 68-year-old female lying in bed, in no acute distress. Cardiovascular: S1, S2 heard. No murmurs, gallops, or rubs. Regular rate and rhythm. Respiratory: Decreased breath sounds globally but mostly noted in the bases. Patient not using any accessory muscles or having work of breathing. Abdomen: Soft, nontender to palpation. Bowel sounds present. No organomegaly. Extremities: No clubbing, cyanosis, or edema. Peripheral pulses present in both legs. Neurological: Patient is oriented x3. Moves all 4 extremities. LABORATORY DATA: White cell count 17.45, hemoglobin 8.9, hematocrit 30.4, platelets 197,000. BMP reveals creatinine that is normal with potassium 3.1, glucose 233. ASSESSMENT AND PLAN: 1. Atrial fibrillation with rapid ventricular response. Her heart rate is in the range of 110s to 120s. She is receiving Cardizem 15 mg/hour. We will continue with the same management. She has chronic atrial fibrillation and she is on chronic anticoagulation. We will continue to monitor. 2. Septic shock secondary to pneumonia. The CT of the chest showed small ground glass infiltrates. We will continue with current antibiotics, in this case vancomycin and Zosyn. We will continue to monitor. Apparently, the septic shock is getting better. Patient is on fluids and we have stopped vasopressors 1 hour ago. At this point, we will continue to monitor. 3. Acute respiratory failure secondary to pneumonia. We will continue with oxygen supplementation. Clinically, this patient reports feeling better. 4. Urinary tract infection. We will follow results of urine culture but we will continue with current medications. 5. Metabolic encephalopathy. That condition is much better. Patient is more awake and alert. We will continue to monitor. 6. Acute systolic congestive heart failure with pulmonary edema. Patient is supposed to be seen by Cardiology. Patient received 1 dose of Lasix. We will continue to monitor. 7. Diabetes mellitus type 2. Not well controlled with hemoglobin A1c of 9.5. We will continue with sliding scale insulin and Accu-Chek before meals and also at bedtime. 8. Rheumatoid arthritis. Aware. The patient has gotten her Humira 2 days ago. We will continue to monitor. 9. Chronic anxiety. We will continue with Xanax. 10. Deep vein thrombosis prophylaxis. The patient is on SCDs. 11. Disposition. We will continue to monitor this patient closely in the intensive care unit. cc: Pardeep Tilley MD
[2019-07-30] MEDS: PULMICORT INH SCH ×2 (12:00→22:35)
[2019-07-30 13:37] LABS: UR AMPHETAMINES QUAL NONE DETECTED (NONE DETECT); UR BARBITUATES QUAL NONE DETECTED (NONE DETECT); UR BENZODIAZEPIN QUAL PRESUMPTIVE POSITIVE (NONE DETECT); UR CANNABINOIDS QUAL NONE DETECTED (NONE DETECT); UR COCAINE QUAL NONE DETECTED (NONE DETECT); UR METHADONE QUAL NONE DETECTED (NONE DETECT); UR METHAMPHETAMINE QUAL NONE DETECTED (NONE DETECT); UR OPIATES QUAL PRESUMPTIVE POSITIVE (NONE DETECT); UR OXYCODONE QUAL NONE DETECTED (NONE DETECT); UR PCP QUAL NONE DETECTED (NONE DETECT); UR PROPOXYPHENE QUAL NONE DETECTED (NONE DETECT); UR TCA QUAL NONE DETECTED (NONE DETECT)
--- NOTE | 2019-07-30 14:05 | CONSULTATION ---
DATE OF CONSULTATION: 07/30/2019 IMPRESSION: 1. Acute hypoxemic respiratory failure and suspected pneumonia. 2. Paroxysmal atrial fibrillation with history of previous FRANSISCO cardioversion this past January. Patient report had recurrence of atrial fibrillation rapid ventricular rate prompting initiation of IV diltiazem. She presently is in sinus rhythm with frequent supraventricular ectopy and runs of atrial tachycardia. 3. Possible associated pulmonary edema. Although B natriuretic peptide level elevated, chest x- ray not very impressive for pulmonary edema. Previous assessments of left ventricular systolic function indicated normal left ventricular ejection fraction. 4. Chronic obstructive pulmonary disease. 5. Type 2 diabetes mellitus. 6. Rheumatoid arthritis. 7. Diverticular disease of the colon. RECOMMENDATIONS: 1. Continue to manage paroxysmal atrial fibrillation with rate control and anticoagulation. Toward this end, we will transition from IV diltiazem to oral diltiazem. Continue anticoagulation with Eliquis. 2. Further diuresis does not appear to be warranted. 3. Continue to treat COPD with possible associated pneumonia as you are doing. HISTORY: This 68-year-old white female with a past history of paroxysmal atrial fibrillation, COPD, type 2 diabetes mellitus, rheumatoid arthritis and diverticular disease of the colon was admitted with respiratory failure and possible sepsis. She was doing well 2 days ago and had a meal with her son in the evening. She went to lie down and has limited recollection of what happened thereafter. She relates some discomfort diffusely and hurting all over. She also recalls some shortness of breath. She was noted by family to have some vomiting as well as some shaking chills. EMS was summoned and she was brought to the hospital. She was seen initially at [place] emergency room. She reportedly demonstrated some atrial fibrillation with rapid ventricular rate and was started on intravenous Cardizem. She was thought to have some pulmonary edema as well as possible pneumonia. She was diuresed with Lasix x1 dose. She ultimately was transferred to [facility] for intensive care unit level bed. When I see her, she has little recollection of all of her symptoms. Does recall some sensation that she was hurting all over. She does not describe anything that sounds like angina and does not recall any palpitations. She has since converted to sinus rhythm with frequent supraventricular ectopy. She was hospitalized this past January and developed atrial fibrillation that was persistent. She ultimately underwent FRANSISCO cardioversion. It is noteworthy that she had normal left ventricular ejection fraction of 60% at that time. She was treated with Eliquis for a long-term anticoagulation. Initially she had been on flecainide but this was not continued. PAST MEDICAL HISTORY: 1. Paroxysmal atrial fibrillation. 2. Chronic obstructive pulmonary disease. 3. Type 2 diabetes mellitus. 4. Gastroesophageal reflux disease. 5. Diverticular disease of the colon. 6. Rheumatoid arthritis. 7. Fibromyalgia. 8. Anxiety disorder. 9. Hyperlipidemia. ALLERGIES: She has no known drug allergies. MEDICATIONS PRIOR TO ADMISSION: As listed. SOCIAL HISTORY: She quit smoking in 2007 after a 60 pack-year history of smoking. She does not use alcohol. FAMILY HISTORY: Negative for premature coronary artery disease. REVIEW OF SYSTEMS: Pulmonary: Noteworthy for some shortness of breath. Gastrointestinal: Noteworthy for some vomiting reported by family but otherwise negative. Constitutional: Noteworthy for some chills and possible fever. Otherwise negative. Remainder of review of systems negative/noncontributory with 14 total systems reviewed. PHYSICAL EXAMINATION: General: Reveals an older white female in no distress on supplemental oxygen per nasal cannula. Vital signs: Blood pressure 113/70, heart rate 103 with ECG monitor showing sinus rhythm with frequent supraventricular ectopy, oxygen saturation 94 to 99 percent on nasal cannula oxygen at 1 L/minute. HEENT: Extraocular movements appear to be intact. Mucous membranes moist. Neck: Supple without jugular venous distention. There are no carotid bruits. Chest: Auscultation of the chest reveals diminished breath sounds diffusely. Cardiac: Reveals a regular rate and rhythm with frequent extrasystole. No murmur or gallop could be appreciated. Abdomen: Soft. Bowel sounds are normal. Extremities: Without edema. Neurologic: Reveals her to be alert and fully oriented. Speech is fluent. She moves all 4 extremities equally well. Skin: Warm and dry. Psychiatric: Reveals her mood to be appropriate. DIAGNOSTIC DATA: Twelve lead EKG obtained this morning demonstrates normal sinus rhythm with frequent supraventricular ectopy and low-voltage QRS. LABORATORY DATA: Includes a white blood cell count of 17.45, hematocrit 30.4, hemoglobin 8.9, platelet count 197,000. Sodium 138, potassium 3.1, chloride 98, carbon dioxide 25, BUN 26, creatinine 0.8, glucose 233. Troponin T initially less than 0.01. Initial CPK 79 with followup CPK of 52. Lactate on presentation 2.6. Pro B-natriuretic peptide level on presentation 1879. TSH 0.06. IMAGING: Chest x-ray is reviewed and is a portable study. No definite infiltrates are appreciated. cc: Rickey Mesa MD
--- NOTE | 2019-07-30 15:24 | Diag Imaging Result Doc PS360 ---
EXAM: CHEST-PORTABLE HISTORY: COPD, hypoxemia TECHNIQUE: Single view COMPARISON: 07/29/2019 FINDINGS: The lungs are well expanded. The heart is mildly prominent. The vessels are mildly distended. There are no infiltrates. No effusion identified. IMPRESSION: Mild pulmonary edema Electronically signed by Ronnie Collins 07/30/2019 3:22 PM
[2019-07-30] MEDS: CARDIZEM PO SCH (16:02)
[2019-07-30] MEDS: VANCOMYCIN 1,400 MG in NS 250 ML IV SCH (16:44)
[2019-07-30] MEDS: XANAX PO PRN (21:29)
[2019-07-31] MEDS: CARDIZEM 100 MG/NS 100 MG/100 ML IVPB IV SCH ×4 (02:59→22:46)
[2019-07-31] MEDS: ATROVENT NEB INH SCH ×4 (03:53→21:03)
[2019-07-31] MEDS: XOPENEX NEB INH SCH ×4 (03:53→21:03)
[2019-07-31] MEDS: ZOSYN 3.375 GM in NS 50 ML IV SCH ×4 (04:41→22:47)
[2019-07-31] MEDS: NS 1,000 ML IV SCH ×2 (04:42→20:21)
[2019-07-31 05:43] LABS: BASO# 0.01 X1000 (0.0-0.2); BASO% 0.1 % (0.0-0.8); EOS# 0.07 X1000 (0.0-0.7); EOS% 0.5 % (0.0-10.0); HEMATOCRIT 28.6 % (37.0-47.0); HEMOGLOBIN 8.4 g/dL (12.0-16.0); IMM GRAN# 0.02 X1000 (0.0-0.04); IMM GRAN% 0.1 % (0.0-0.5); LYMPH# 1.24 X1000 (1.2-3.4); LYMPH% 9.1 % (20.5-51.1); MCH 26.4 PG (27-31); MCHC 29.4 g/dL (33-37); MCV 89.9 FL (81-99); MONO# 0.95 X1000 (0.11-0.59); MONO% 6.9 % (1.7-9.3); NEUT% 83.3 % (42.2-75.2); PLT 192 X1000 (130-400); RBC 3.18 XMIL (4.2-5.4); RDW 14.8 % (11.5-14.5); WBC 13.69 X1000 (4.8-10.8)
[2019-07-31] MEDS: SOLU-CORTEF IV SCH ×3 (05:50→23:05)
[2019-07-31 06:29] LABS: AGAP 12; BUN 16 mg/dL (8-22); CALCIUM 8.6 mg/dL (8.8-10.2); CHLORIDE 101 mmol/L (98-107); COSMO 285; CREATININE 0.5 mg/dL (0.5-0.9); ESTIMATED GFR > 60; GLUCOSE 220 mg/dL (70-104); POTASSIUM 3.8 mmol/L (3.5-5.1); SODIUM 139 mmol/L (136-145); TCO2 26 mmol/L (25-35)
[2019-07-31] MEDS: NORCO-10 PO PRN ×3 (07:15→22:46)
[2019-07-31] MEDS: HUMULIN R SUBQ SCH ×4 (07:17→20:40)
[2019-07-31] MEDS: CARDIZEM PO SCH ×3 (08:30→16:11)
[2019-07-31] MEDS: PULMICORT INH SCH ×2 (09:20→21:03)
--- NOTE | 2019-07-31 10:38 | PROGRESS NOTE ---
DATE: 07/31/2019 SUBJECTIVE: The patient reports breathing better. No shortness of breath. No chest pain. No palpitations. OBJECTIVE: Vital Signs: Temperature 97.5, heart rate 104, respiratory rate 22, blood pressure 130/88, O2 saturation 92% on 2 L nasal cannula. General examination: This is a 68-year-old female, lying in bed in no acute distress. Cardiovascular exam: S1, S2 heard. Irregularly irregular and tachycardic, but no murmurs, gallops, or rubs noted. Respiratory exam: Decreased breath sounds globally with minimal coarse breath sounds noted in both pulmonary bases. Patient not using any accessory muscles or having work of breathing. Abdomen: Soft, nontender to palpation. Bowel sounds present. No organomegaly. Extremities: No clubbing, cyanosis, or edema. Peripheral pulses present in both legs. Neurological exam: Patient is alert and oriented x3. Moves 4 extremities. LABORATORY DATA: White cell count 13.69, hemoglobin 8.4, hematocrit 28.6, platelets 192 with BMP that reveals glucose 220. Hemoglobin A1c 6.9, calcium 8.6. ASSESSMENT AND PLAN: 1. Acute respiratory failure secondary to pneumonia. Clinically, patient is doing fine. Requiring less oxygen supplementation. Now, she is requiring 2 liters of oxygen by nasal cannula. We will continue to monitor. 2. Septic shock secondary to pneumonia. At presentation, the patient's blood pressure was low, so the patient was on vasopressors, but she has been off of those for more than 24 hours. We will continue with vancomycin and Zosyn. CT of the chest at admission showed small ground- glass infiltrates. We will continue with current medication. As we mentioned before, we are not requiring any vasopressors anymore. We will continue to monitor. 3. Atrial fibrillation with rapid ventricular response. Patient's heart rate continues to be elevated. She has chronic atrial fibrillation. We will restart Eliquis. Her heart rate is elevated even though she is on Cardizem drip at 15 mg/hour. At this point, we are going to increase the doses of Cardizem by mouth that Cardiology started from 30 three times per day to 60 q. 8 hours, and see if that helps reduce the amount of intravenous Cardizem. We will continue to monitor. 4. Urinary tract infection. The urine culture and the blood culture showed Escherichia coli pansensitive. At this point, we are not going to make any changes to his current treatment. 5. Metabolic encephalopathy, resolved. 6. Acute systolic congestive heart failure with pulmonary edema. The patient has been evaluated by Cardiology. They do not think this patient continues to require diuresis. Lasix has been stopped. 7. Diabetes mellitus type 2. The hemoglobin A1c is 6.9, so it is well controlled. We will continue with Accu-Chek before meals and also at bedtime, and sliding scale insulin as well. 8. Rheumatoid arthritis, aware. 9. Chronic anxiety. We will continue with Xanax. 10. Deep vein thrombosis prophylaxis. Patient is on sequential compression devices. DISPOSITION: The patient is not requiring any vasopressors anymore. Patient requiring still Cardizem drip. I think at this point, the patient will be transferred to our PVC unit today. cc: Pardeep Tilley MD
[2019-07-31] MEDS ORDERED: POTASSIUM CHLORIDE 20% LIQUID PO ONE ×2 (11:35→14:30)
[2019-07-31] MEDS ORDERED: LASIX IV ONE ×2 (11:35→14:30)
--- NOTE | 2019-07-31 11:52 | CARDIOLOGY PROGRESS NOTE ---
DATE: 07/31/2019 CHIEF COMPLAINT: Shortness of breath. REASON FOR CONSULTATION: Irregular heartbeat, atrial fibrillation. SUBJECTIVE: Mood is feeling better; however, she says that she is filling up with fluid. Her abdomen is more distended, and her feet feel a little swollen up. Otherwise, she feels more comfortable today than yesterday. Her telemetry still shows atrial fibrillation. OBJECTIVE: Blood pressure is 130/88, pulse 104, temperature 97.5, respirations 22. Awake, in no distress. HEENT: Unremarkable. Chest: Diminished breath sounds, especially in the left lung. Heart sounds are irregularly irregular without gallop or murmur. Abdomen is slightly distended, prominent. Extremities showed trace edema. Neurologic: Follows commands. Moves all 4 extremities. DIAGNOSTIC DATA: White cell count is 13,690, hemoglobin is 8.4. Sodium 139, potassium 3.8, BUN is 16, creatinine 1.2 IMPRESSION: 1. The patient presented with what appears to be pneumonia. 2. Septicemia due to Escherichia coli. The patient has E. coli growing in the urine and in the blood. It is sensitive to basically all antibiotics including ampicillin, cefazolin and is ESBL negative. 3. History of rheumatoid arthritis. 4. Iron deficiency anemia, chronic anemia, significant. 5. Obesity. 6. Diabetes mellitus type 2. RECOMMENDATIONS: At this time, we will continue conservative management. She is on diltiazem 60 every 8 hours. We will give her one dose of Lasix with oral potassium. We will see how she does. We will continue to follow her as needed. cc: Jan Pulido MD MTD
[2019-07-31 12:16] LABS: C REACTIVE PROT QUANT 136.65 mg/L (0.00-5.00)
[2019-07-31] MEDS: VANCOMYCIN 1,400 MG in NS 250 ML IV SCH (16:16)
[2019-07-31] MEDS: ELIQUIS PO SCH (20:36)
[2019-07-31] MEDS: XANAX PO PRN (20:37)
[2019-07-31] MEDS: NEURONTIN PO SCH (20:37)
[2019-07-31] MEDS: TRICOR PO SCH (20:37)
[2019-07-31] MEDS: ASPIRIN EC PO SCH (20:37)
[2019-08-01] MEDS: CARDIZEM PO SCH ×3 (00:56→16:51)
[2019-08-01] MEDS: ATROVENT NEB INH SCH ×4 (03:11→21:39)
[2019-08-01] MEDS: XOPENEX NEB INH SCH ×4 (03:11→21:39)
[2019-08-01] MEDS: CARDIZEM 100 MG/NS 100 MG/100 ML IVPB IV SCH ×3 (05:48→18:21)
[2019-08-01] MEDS: SOLU-CORTEF IV SCH (05:50)
[2019-08-01] MEDS: ZOSYN 3.375 GM in NS 50 ML IV SCH ×4 (05:56→22:58)
[2019-08-01 06:39] LABS: BASO# 0.02 X1000 (0.0-0.2); BASO% 0.2 % (0.0-0.8); EOS# 0.25 X1000 (0.0-0.7); EOS% 2.1 % (0.0-10.0); HEMATOCRIT 31.6 % (37.0-47.0); HEMOGLOBIN 9.1 g/dL (12.0-16.0); IMM GRAN# 0.02 X1000 (0.0-0.04); IMM GRAN% 0.2 % (0.0-0.5); LYMPH# 2.24 X1000 (1.2-3.4); LYMPH% 18.5 % (20.5-51.1); MCH 26.2 PG (27-31); MCHC 28.8 g/dL (33-37); MCV 91.1 FL (81-99); MONO# 1.08 X1000 (0.11-0.59); MONO% 8.9 % (1.7-9.3); MPV 11.7 FL (7.4-10.4); NEUT# 8.47 X1000 (1.4-6.5); NEUT% 70.1 % (42.2-75.2); PLT 232 X1000 (130-400); RBC 3.47 XMIL (4.2-5.4); RDW 14.7 % (11.5-14.5); WBC 12.08 X1000 (4.8-10.8)
[2019-08-01] MEDS: NORCO-10 PO PRN ×3 (06:48→22:59)
[2019-08-01] MEDS: HUMULIN R SUBQ SCH ×4 (06:49→21:56)
[2019-08-01 07:04] LABS: AGAP 11; BUN 13 mg/dL (8-22); CALCIUM 8.3 mg/dL (8.8-10.2); CHLORIDE 101 mmol/L (98-107); COSMO 281; CREATININE 0.6 mg/dL (0.5-0.9); ESTIMATED GFR > 60; GLUCOSE 199 mg/dL (70-104); POTASSIUM 3.6 mmol/L (3.5-5.1); SODIUM 138 mmol/L (136-145); TCO2 26 mmol/L (25-35)
[2019-08-01] MEDS: NEURONTIN PO SCH ×2 (08:24→21:28)
[2019-08-01] MEDS: ELIQUIS PO SCH ×2 (08:25→21:28)
[2019-08-01] MEDS: LASIX PO SCH (08:25)
[2019-08-01] MEDS: CYMBALTA PO SCH (08:25)
[2019-08-01] MEDS ORDERED: PREDNISONE PO SCH (09:15)
[2019-08-01] MEDS ORDERED: LASIX IV ONE (09:38)
[2019-08-01] MEDS ORDERED: POTASSIUM CHLORIDE 20% LIQUID PO ONE (09:39)
[2019-08-01] MEDS: PULMICORT INH SCH ×2 (09:53→21:39)
--- NOTE | 2019-08-01 10:59 | CARDIOLOGY PROGRESS NOTE ---
DATE: 08/01/2019 CHIEF COMPLAINT: The patient is with shortness of breath and pneumonia. SUBJECTIVE: The patient feels generally better. Her telemetry shows occasional episodes of paroxysmal atrial fibrillation. She does not like taking the hydrocortisone shots. She says they make her more anxious. She, in general, seems to be doing better today. The patient states that she is under the care of Dr. Silva for rheumatoid arthritis, and she typically takes 15 to 20 mg of prednisone in the morning plus Humira once a week. She has missed her Humira dose this week. OBJECTIVE: Blood pressure is 118/89, temperature 98.9, pulse varies from 110 to 130, respirations 22. She is awake, alert, acute on chronically ill, obese. HEENT is unremarkable. Chest: Occasional rales in the left lung. Heart sounds are slightly irregular, rapid at times. Abdomen is obese. Extremities show trace edema. Neurologic: Follows commands, moves all 4 extremities. DIAGNOSTIC DATA: White cell count is 12,080, hemoglobin 9.1, hematocrit 31.6. Sodium 138, potassium 3.6, BUN is 13, creatinine 0.6. IMPRESSION: 1. The patient has paroxysmal atrial fibrillation. 2. Pneumonia. 3. Septicemia. 4. Urinary tract infection due to Escherichia coli. 5. Rheumatoid arthritis, possible flare up. Her RA level as noted yesterday was high at 143 international units per mL which is 10 times normal. 6. Obesity. RECOMMENDATIONS: At this time, I would continue antibiotic coverage for her infection. We will put her on prednisone 20 mg daily and stop the hydrocortisone. We will see how she does. cc: Jan Pulido MD
[2019-08-01] MEDS ORDERED: PRILOSEC PO ONE (11:48)
[2019-08-01] MEDS: LANOXIN IV SCH ×3 (11:57→22:59)
[2019-08-01] MEDS: ALDACTONE PO SCH ×2 (11:58→21:28)
[2019-08-01] MEDS ORDERED: DUONEB (A & A) INH PRN (13:29)
[2019-08-01] MEDS: SOLU-MEDROL IV SCH ×2 (14:26→21:29)
--- NOTE | 2019-08-01 14:26 | PROGRESS NOTE ---
DATE: 08/01/2019 SUBJECTIVE: Patient has no major complaints except she is still very short of breath. OBJECTIVE: Vital Signs: Blood pressure 143/66, heart rate 106, respiratory 17, temperature 97.1 degrees, 95% on 5 L. Cardiovascular: Regular rate and rhythm. Pulmonary: On pulmonary exam she definitely has end-expiratory wheezes throughout. Gastrointestinal: Soft, nontender, nondistended. Bowel sounds are positive. LABORATORY DATA: White count is 12, hemoglobin and hematocrit of 9 and 31, platelets 232,000. Basic was normal. Sugar is up to 348. C-reactive protein of 136. PROBLEM LIST: 1. Acute respiratory failure due to pneumonia and chronic obstructive pulmonary disease exacerbation. She at least has a 40 to 50 pack-year history of smoking. She is usually not on oxygen, but now she is up to 4 L. I think the major issue right now is more chronic obstructive pulmonary disease bronchospasm. 2. Pneumonia with initial septic shock. She is on vancomycin and Zosyn. She does have some questionable pneumonia. We will continue to follow. I have stopped her vancomycin because her blood and urine cultures have grew out a specific organism but we will continue treatment. 3. Chronic obstructive pulmonary disease exacerbation. I agree with Dr. Vincent. I am going to bump up her steroids even further though because I think she is having a lot of wheezing associated. 4. Atrial fibrillation with rapid ventricular response. She is on Cardizem and seems to be doing okay. We will change her breathing treatments to Xopenex. 5. Escherichia coli urinary tract infection, septicemia or sepsis and positive blood culture. She says she was not particularly symptomatic, but she did have some symptoms of discomfort, so we will continue antibiotics. Right now, I believe it is pansensitive so we could use cefazolin at discharge at least for this issue. 6. Congestive heart failure with pulmonary edema. We stopped her fluids and put her back on Lasix and we will continue to follow. 7. Type 2 diabetes, stable. She will still require several days to get this better and better situated. cc: Mao Goodwin MD
[2019-08-01] MEDS: TRICOR PO SCH (21:28)
[2019-08-01] MEDS: XANAX PO PRN (21:28)
[2019-08-01] MEDS: ASPIRIN EC PO SCH (21:28)
[2019-08-02] MEDS: CARDIZEM PO SCH ×4 (00:08→21:11)
[2019-08-02] MEDS: HUMULIN R SUBQ SCH ×6 (00:15→21:11)
[2019-08-02] MEDS: XOPENEX NEB INH SCH ×4 (03:30→22:47)
[2019-08-02] MEDS: ATROVENT NEB INH SCH ×4 (03:30→22:47)
[2019-08-02] MEDS: CARDIZEM 100 MG/NS 100 MG/100 ML IVPB IV SCH (04:23)
[2019-08-02] MEDS: ZOSYN 3.375 GM in NS 50 ML IV SCH ×4 (04:26→22:00)
[2019-08-02] MEDS: LANOXIN IV SCH (04:27)
[2019-08-02] MEDS: SOLU-MEDROL IV SCH (04:28)
[2019-08-02 06:28] LABS: BASO# 0.01 X1000 (0.0-0.2); BASO% 0.1 % (0.0-0.8); HEMATOCRIT 31.1 % (37.0-47.0); IMM GRAN# 0.02 X1000 (0.0-0.04); IMM GRAN% 0.2 % (0.0-0.5); LYMPH% 11.1 % (20.5-51.1); MCH 26.1 PG (27-31); MCHC 28.9 g/dL (33-37); MCV 90.1 FL (81-99); MONO# 0.57 X1000 (0.11-0.59); MONO% 5.8 % (1.7-9.3); MPV 11.6 FL (7.4-10.4); NEUT% 82.8 % (42.2-75.2); PLT 261 X1000 (130-400); RBC 3.45 XMIL (4.2-5.4); RDW 14.2 % (11.5-14.5)
[2019-08-02 06:34] LABS: AGAP 11; BUN 14 mg/dL (8-22); CALCIUM 9.3 mg/dL (8.8-10.2); CHLORIDE 101 mmol/L (98-107); COSMO 296; CREATININE 0.6 mg/dL (0.5-0.9); ESTIMATED GFR > 60; GLUCOSE 296 mg/dL (70-104); POTASSIUM 4.1 mmol/L (3.5-5.1); SODIUM 143 mmol/L (136-145); TCO2 31 mmol/L (25-35)
[2019-08-02] MEDS: PRILOSEC PO SCH (06:34)
[2019-08-02 07:35] LABS: ANISOCYTOSIS 2+; HYPOCHROM 1+; LYMPHS 6 % (21-51); SEGS 94 % (42-75)
--- NOTE | 2019-08-02 07:41 | Diag Imaging Result Doc PS360 ---
EXAM: CHEST-PORTABLE INDICATION: dyspnea TECHNIQUE: One view COMPARISON: 07/30/2019 FINDINGS: COPD changes are again noted. There are developing patchy infiltrates seen throughout both lungs suggesting developing pneumonia. This is more prominent on the right. The cardiac silhouette is stable. IMPRESSION: Developing patchy bilateral infiltrates, more prominent on the right. Electronically signed by Bairon Salas 08/02/2019 7:38 AM
[2019-08-02] MEDS: ELIQUIS PO SCH ×2 (08:01→21:11)
[2019-08-02] MEDS: ALDACTONE PO SCH ×2 (08:01→21:11)
[2019-08-02] MEDS: CYMBALTA PO SCH (08:01)
[2019-08-02] MEDS: LASIX PO SCH (08:01)
[2019-08-02] MEDS: NORCO-10 PO PRN ×2 (08:05→18:59)
[2019-08-02] MEDS: NEURONTIN PO SCH ×2 (08:05→21:09)
--- NOTE | 2019-08-02 09:16 | EKG Report ---
Test Performed on : 07/29/2019 07:52:29 AM Test Reason : ER Blood Pressure : / mmHG Vent. Rate : 100 BPM Atrial Rate : 100 BPM P-R Int : 178 ms QRS Dur : 086 ms QT Int : 368 ms P-R-T Axes : -08 -16 -11 degrees QTc Int : 474 ms Normal sinus rhythm. Low voltage QRS Septal infarct (cited on or before 17-FEB-2019) Abnormal ECG When compared with ECG of 19-FEB-2019 12:30, Sinus rhythm. has replaced Ectopic atrial rhythm. Criteria for Inferior infarct are no longer present Questionable change in initial forces of Anterior leads Nonspecific T wave abnormality, worse in Anterolateral leads Unconfirmed Result
[2019-08-02] MEDS: PULMICORT INH SCH ×2 (09:32→22:47)
--- NOTE | 2019-08-02 09:57 | EKG Report ---
Test Performed on : 07/29/2019 00:27:07 AM Test Reason : ER Blood Pressure : / mmHG Vent. Rate : 126 BPM Atrial Rate : 126 BPM P-R Int : 166 ms QRS Dur : 090 ms QT Int : 298 ms P-R-T Axes : 076 -25 095 degrees QTc Int : 431 ms Sinus tachycardia. with premature supraventricular complexes. Left ventricular hypertrophy with repolarization abnormality Cannot rule out Septal infarct , age undetermined Abnormal ECG No previous ECGs available Unconfirmed Result
--- NOTE | 2019-08-02 14:35 | PROGRESS NOTE ---
DATE: 08/02/2019 SUBJECTIVE: Patient resting in bed, not in any obvious distress. OBJECTIVE: Vital Signs: Temperature 97.5 degrees, pulse 94, respiratory rate 20, blood pressure 142/66, oxygen saturation is 95%. HEENT: Atraumatic, normocephalic. Cardiovascular: S1, S2. Respiratory: Has evidence of good air entry bilaterally. Abdomen: Soft, nontender. No masses felt. Extremities: No significant edema. Central Nervous System: No obvious focal deficits noted. LABORATORY DATA: WBC is 9.9, hematocrit 31.1, with a platelet count of 261,000. Sodium is 143, potassium 4.1, chloride is 101, bicarb 31, BUN is 14, creatinine 0.6, blood glucose is 420. Urine culture and blood culture are positive for Escherichia coli. ASSESSMENT AND PLAN: 1. Acute respiratory failure secondary to pneumonia. Continue oxygen supplementation and antibiotics for pneumonia. 2. Septic shock secondary to pneumonia. Continue antibiotics. Blood pressure now within normal limits. Blood culture is positive for Escherichia coli. 3. Escherichia coli bacteremia. Deescalate antibiotics based on sensitivity report. 4. Urinary tract infection secondary to Escherichia coli. Continue antibiotics. 5. Acute systolic congestive heart failure with pulmonary edema. Maintain the patient on diuretics. 6. Diabetes mellitus. Monitor blood sugar levels, and maintain the patient on sliding scale insulin. 7. Chronic obstructive pulmonary disease. Continue nebulized bronchodilators, steroids, as well as antibiotics. 8. Atrial fibrillation with rapid ventricular rate. Continue rate-controlling agent. Continue apixaban as well. cc: Tao Butterfield MD
[2019-08-02] MEDS: ASPIRIN EC PO SCH (21:10)
[2019-08-02] MEDS: TRICOR PO SCH (21:21)
[2019-08-02] MEDS: XANAX PO PRN (22:24)
[2019-08-03] MEDS: ATROVENT NEB INH SCH ×4 (03:48→22:53)
[2019-08-03] MEDS: XOPENEX NEB INH SCH ×4 (03:48→22:53)
[2019-08-03] MEDS: CARDIZEM PO SCH ×4 (03:51→21:03)
[2019-08-03] MEDS: ZOSYN 3.375 GM in NS 50 ML IV SCH ×4 (05:09→22:45)
[2019-08-03] MEDS: PRILOSEC PO SCH (06:32)
[2019-08-03] MEDS: HUMULIN R SUBQ SCH ×5 (06:40→22:45)
[2019-08-03 06:41] LABS: AGAP 10; BUN 23 mg/dL (8-22); CALCIUM 9.7 mg/dL (8.8-10.2); CHLORIDE 96 mmol/L (98-107); COSMO 291; CREATININE 0.6 mg/dL (0.5-0.9); ESTIMATED GFR > 60; GLUCOSE 299 mg/dL (70-104); POTASSIUM 4.2 mmol/L (3.5-5.1); SODIUM 138 mmol/L (136-145); TCO2 32 mmol/L (25-35)
[2019-08-03 07:16] LABS: BASO# 0.01 X1000 (0.0-0.2); BASO% 0.1 % (0.0-0.8); HEMOGLOBIN 9.2 g/dL (12.0-16.0); IMM GRAN# 0.04 X1000 (0.0-0.04); IMM GRAN% 0.3 % (0.0-0.5); LYMPH# 1.93 X1000 (1.2-3.4); LYMPH% 14.3 % (20.5-51.1); MCH 25.8 PG (27-31); MCHC 28.8 g/dL (33-37); MCV 89.9 FL (81-99); MONO# 1.04 X1000 (0.11-0.59); MONO% 7.7 % (1.7-9.3); MPV 11.5 FL (7.4-10.4); NEUT# 10.47 X1000 (1.4-6.5); NEUT% 77.6 % (42.2-75.2); PLT 346 X1000 (130-400); RBC 3.56 XMIL (4.2-5.4); RDW 14.2 % (11.5-14.5); WBC 13.49 X1000 (4.8-10.8)
[2019-08-03 08:36] LABS: HYPOCHROM 1+; LYMPHS 18 % (21-51); MONO 2 % (1-9); SEGS 80 % (42-75)
[2019-08-03] MEDS: ALDACTONE PO SCH ×2 (08:37→21:03)
[2019-08-03] MEDS: ELIQUIS PO SCH ×2 (08:37→21:03)
[2019-08-03] MEDS: PREDNISONE PO SCH (08:37)
[2019-08-03] MEDS: CYMBALTA PO SCH (08:37)
[2019-08-03] MEDS: LASIX PO SCH (08:37)
[2019-08-03] MEDS: NEURONTIN PO SCH ×2 (08:38→21:04)
[2019-08-03] MEDS: PULMICORT INH SCH ×2 (09:55→22:53)
[2019-08-03] MEDS: NORCO-10 PO PRN ×2 (11:50→17:39)
--- NOTE | 2019-08-03 16:20 | PROGRESS NOTE ---
DATE: 08/03/2019 SUBJECTIVE: Patient of Dr. Anurag Weathers, came in with vomiting, chills, shortness of breath. This is a 68-year-old with a medical history of COPD. She is not on home oxygen though. She has a history of atrial fib, congestive heart failure, rheumatoid arthritis, diabetes, immunocompromise, takes Humira for rheumatoid arthritis. Her last dose was 2 days before admission. The day before admission noticed that she went to lay down and she was having chills. Came back to check on her and she was throwing up. She gave her some Theraflu. Thirty minutes later she checked her again and she was having rigors and delirious. Brought her to the emergency room. Appeared to be in atrial fibrillation with rapid ventricular rate. Started on Cardizem drip and Levophed because of hypotension. She also had signs and symptoms of pulmonary venous hypertension, congestive heart failure, septic shock, and put her on some empiric antibiotics. She appeared to have acute respiratory failure, although she was not retaining CO2. She was hypoxic and then underlying urinary tract infection and appeared to have metabolic infectious encephalopathy, acute systolic congestive heart failure with pulmonary edema on x-ray. Today she states she is feeling better. OBJECTIVE: Vital signs: She has remained afebrile. Temperature 97.6 degrees, pulse 111, respirations 20, blood pressure 158/81. HEENT: Pupils are equal and round. Lungs: Clear in all lung ward. Cardiovascular: Regular rhythm and rate without murmur or S3. Abdomen: Soft. Skin: Warm and dry. ASSESSMENT AND PLAN: 1. Acute respiratory failure secondary to pneumonia. Continue oxygen supplementation and antibiotics. She is doing better clinically, better air and gas exchange. 2. Septic shock secondary to pneumonia. Continue present antibiotics. Blood pressure was well controlled and seemed to have good perfusion. Culture was positive for Escherichia coli. 3. Escherichia coli bacteremia. Continue present antibiotics based on sensitivity report. 4. Urinary tract infection secondary to Escherichia coli. 5. Acute systolic congestive heart failure with pulmonary edema. Continue patient on diuretics. 6. Diabetes mellitus type 2. Continue to follow sugars and pattern insulin control. 7. Chronic obstructive pulmonary disease. Continue nebulizers or steroids, as well as antibiotics. 8. Atrial fibrillation with rapid ventricular rate. Her rate is controlled. Seems to be doing better. 9. Reviewed her orders and continue present medication and therapy. LABORATORY: Reviewed her lab from this morning. White count 13,490, hematocrit is 32, hemoglobin 9.2, platelet 346,000. Sodium 138, potassium 4.2, chloride 96, BUN 23, creatinine 0.6. I do not see any change. cc: Carlos De Jesus MD
[2019-08-03] MEDS: LOPRESSOR IV PRN (17:33)
[2019-08-03] MEDS: XANAX PO PRN (20:18)
[2019-08-03] MEDS: ASPIRIN EC PO SCH (21:04)
[2019-08-03] MEDS: TRICOR PO SCH (21:04)
[2019-08-04] MEDS: XOPENEX NEB INH SCH ×4 (03:24→23:10)
[2019-08-04] MEDS: ATROVENT NEB INH SCH ×4 (03:24→23:10)
[2019-08-04] MEDS: CARDIZEM PO SCH ×4 (03:31→21:18)
[2019-08-04] MEDS: ZOSYN 3.375 GM in NS 50 ML IV SCH ×3 (05:59→16:18)
[2019-08-04] MEDS: PRILOSEC PO SCH (06:00)
[2019-08-04 06:14] LABS: BASO# 0.01 X1000 (0.0-0.2); BASO% 0.1 % (0.0-0.8); EOS# 0.15 X1000 (0.0-0.7); HEMATOCRIT 32.5 % (37.0-47.0); HEMOGLOBIN 9.4 g/dL (12.0-16.0); IMM GRAN# 0.05 X1000 (0.0-0.04); IMM GRAN% 0.3 % (0.0-0.5); LYMPH# 3.33 X1000 (1.2-3.4); LYMPH% 23.2 % (20.5-51.1); MCH 26.2 PG (27-31); MCHC 28.9 g/dL (33-37); MCV 90.5 FL (81-99); MONO# 1.31 X1000 (0.11-0.59); MONO% 9.1 % (1.7-9.3); MPV 11.1 FL (7.4-10.4); NEUT% 66.3 % (42.2-75.2); PLT 414 X1000 (130-400); RBC 3.59 XMIL (4.2-5.4); RDW 14.4 % (11.5-14.5); WBC 14.35 X1000 (4.8-10.8)
[2019-08-04 06:28] LABS: AGAP 9; BUN 21 mg/dL (8-22); CALCIUM 9.5 mg/dL (8.8-10.2); CHLORIDE 98 mmol/L (98-107); COSMO 285; CREATININE 0.5 mg/dL (0.5-0.9); ESTIMATED GFR > 60; GLUCOSE 86 mg/dL (70-104); POTASSIUM 3.5 mmol/L (3.5-5.1); SODIUM 142 mmol/L (136-145); TCO2 35 mmol/L (25-35)
[2019-08-04] MEDS: HUMULIN R SUBQ SCH ×4 (06:41→21:20)
[2019-08-04] MEDS: ALDACTONE PO SCH ×2 (08:21→21:17)
[2019-08-04] MEDS: ELIQUIS PO SCH ×2 (08:21→21:17)
[2019-08-04] MEDS: CYMBALTA PO SCH (08:21)
[2019-08-04] MEDS: LASIX PO SCH (08:21)
[2019-08-04] MEDS: PREDNISONE PO SCH (08:21)
[2019-08-04] MEDS: NEURONTIN PO SCH ×2 (08:23→21:17)
[2019-08-04] MEDS: NORCO-10 PO PRN ×3 (09:09→21:17)
[2019-08-04] MEDS: PULMICORT INH SCH ×2 (09:38→23:10)
[2019-08-04] MEDS: DIFLUCAN PO SCH (10:06)
[2019-08-04] MEDS: LOPRESSOR IV PRN ×2 (11:10→17:20)
[2019-08-04] MEDS: MONISTAT-7 VAG CREAM VAG SCH (12:54)
[2019-08-04] MEDS ORDERED: MILK OF MAGNESIA PO ONE (16:59)
--- NOTE | 2019-08-04 17:18 | PROGRESS NOTE ---
DATE: 08/04/2019 SUBJECTIVE: Ms. Oropeza is breathing better. She does feel a little better, a little stronger. She is still pretty weak. She is complaining of left hip pain and so she would like an x-ray of her left hip. She remains afebrile. She still has not had a bowel movement. She has tried. OBJECTIVE: Vital Signs: Temp 98.3 degrees, pulse 112, respirations 22, blood pressure 147/101. HEENT: Pupils are equal and round. Lungs: Clear in all lung ward. Cardiovascular: Regular rhythm and rate without murmur or S3. Abdomen: Soft. Skin: Warm and dry. Urine output was 5,700 mL. LABORATORY DATA: White count was 14,350, hematocrit was 32, platelet count 414,000. Sodium 142, potassium 3.5, chloride 98, BUN 21, creatinine 0.5, blood sugars 80, 255, and 285. ASSESSMENT AND PLAN: 1. Acute respiratory failure secondary to pneumonia. Continue O2 supplementation. She presented with what appeared to septic shock, much better. Perfusion looks good. 2. Escherichia coli bacteremia. I suspect E. coli urinary tract infection. 3. Acute systolic congestive heart failure with pulmonary edema. Continue present diuretics. 4. Diabetes mellitus type 2. Sugar is under good control. 5. Chronic obstructive pulmonary disease. Continue nebulizers and steroids and antibiotics. 6. Atrial fibrillation. Ventricular rate is well controlled. 7. I am going to get an x-ray of her left hip. She has physical therapy, I believe, but will make sure she has physical therapy working as well, try and ambulate. We need to see if we can wean her off the oxygen. cc: Carlos De Jesus MD
[2019-08-04] MEDS: TRICOR PO SCH (21:17)
[2019-08-04] MEDS: ASPIRIN EC PO SCH (21:18)
[2019-08-04] MEDS: XANAX PO PRN (21:23)
[2019-08-04] MEDS ORDERED: AYR NASAL SPRAY NAS PRN (21:57)
[2019-08-05] MEDS: ZOSYN 3.375 GM in NS 50 ML IV SCH ×6 (00:12→22:22)
[2019-08-05] MEDS: ATROVENT NEB INH SCH ×4 (03:35→23:34)
[2019-08-05] MEDS: XOPENEX NEB INH SCH ×4 (03:35→23:34)
[2019-08-05] MEDS: CARDIZEM PO SCH ×4 (04:44→21:20)
[2019-08-05] MEDS: PRILOSEC PO SCH (06:10)
[2019-08-05] MEDS: HUMULIN R SUBQ SCH ×5 (06:10→23:52)
[2019-08-05] MEDS: ELIQUIS PO SCH ×2 (08:30→21:20)
[2019-08-05] MEDS: NEURONTIN PO SCH ×2 (08:30→21:24)
[2019-08-05] MEDS: PREDNISONE PO SCH (08:30)
[2019-08-05] MEDS: DIFLUCAN PO SCH (08:30)
[2019-08-05] MEDS: CYMBALTA PO SCH (08:30)
[2019-08-05] MEDS: ALDACTONE PO SCH ×2 (08:30→21:20)
[2019-08-05] MEDS: LASIX PO SCH (08:31)
[2019-08-05] MEDS: MONISTAT-7 VAG CREAM VAG SCH (08:32)
[2019-08-05] MEDS ORDERED: MILK OF MAGNESIA PO PRN (10:00)
--- NOTE | 2019-08-05 10:04 | Diag Imaging Result Doc PS360 ---
EXAM: XRAY PELVIS W/HIP 2-3VW LT 08/05/2019 HISTORY: L hip pain TECHNIQUE: AP pelvis and left hip four views COMMENT: There is no evidence of acute fracture or dislocation. The joint spaces fairly well preserved. There are no previous studies available for comparison. IMPRESSION: No evidence of acute bony abnormality. Electronically signed by Danie Royal 08/05/2019 10:02 AM
--- NOTE | 2019-08-05 10:05 | Diag Imaging Result Doc PS360 ---
EXAM: CHEST-2 VIEWS 08/05/2019 HISTORY: pneumonia TECHNIQUE: AP and lateral upright chest COMMENT: Compared to 08/02/2019 the opacity in the right upper lobe has improved as has the lower lobe opacity. The opacities previously seen in the left upper lobe are also apparently cleared. IMPRESSION: Improving bronchopneumonia. Electronically signed by Danie Royal 08/05/2019 10:03 AM
[2019-08-05] MEDS: NORCO-10 PO PRN ×3 (10:10→21:18)
[2019-08-05] MEDS: PULMICORT INH SCH ×2 (11:08→23:34)
[2019-08-05] MEDS: METAMUCIL POWDER PACKET PO SCH (11:22)
[2019-08-05] MEDS: LOPRESSOR IV PRN (11:23)
--- NOTE | 2019-08-05 12:39 | PROGRESS NOTE ---
DATE: 08/05/2019 SUBJECTIVE: Ms. Oropeza says she feels a little better. Will get her Banks catheter out this morning. Continue physical therapy. Our hope is to try and go home with some home health. OBJECTIVE: Vital Signs: She remains afebrile, temperature 97.7 degrees, pulse 100, respirations 22, blood pressure 137/80. HEENT: Pupils are equal and round. Lungs: Clear in all lung ward. Cardiovascular: Regular rhythm and rate without murmur or S3. Urine output is 4100 mL. IMAGING: X-ray of the hip on the left: No evidence of acute bony abnormality. She still has some discomfort in the left lateral hip. Chest x-ray from today: Improving bronchopneumonia. Compared to the x-ray on 08/02/2019, opacity in the right upper lobe has improved, has a lower lobe opacity, and they have both improved, so clinically improved. I am hopeful she can go home soon. ASSESSMENT AND PLAN: 1. Acute respiratory failure secondary to pneumonia. Continue oxygen supplementation and bronchodilators and present antibiotics. 2. Escherichia coli bacteremia, suspect from urinary tract infection. 3. Acute systemic congestive heart failure with pulmonary edema, and this is improved. Her swelling has gone down in her legs. X-ray looks good. 4. Diabetes mellitus type 2. Sugar is under good control. 5. Chronic obstructive pulmonary disease exacerbation. 6. Atrial fibrillation. Rate is controlled. Continue current method. Will get Physical Therapy and Occupational Therapy involved, and will discontinue her Banks catheter today. States her bowels still have not moved. I will add some milk of magnesia as I think she got 1 dose yesterday, and she can get that as needed. cc: Carlos De Jesus MD
[2019-08-05 15:24] LABS: URINE SOURCE CATH
[2019-08-05 15:28] LABS: BILIRUBIN URINE NEGATIVE (NEGATIVE); BLOOD URINE NEGATIVE (NEGATIVE); COLOR YELLOW; GLUCOSE URINE NEGATIVE (NEGATIVE); KETONE URINE NEGATIVE (NEGATIVE); LEUKOCYTES URINE MODERATE (NEGATIVE); NITRITE URINE NEGATIVE (NEGATIVE); PH URINE 6.5; PROTEIN URINE NEGATIVE (NEGATIVE); SP GRAVITY URINE 1.011; TURBIDITY URINE HAZY (CLEAR); UROBILINOGEN URINE NORMAL (NORMAL)
[2019-08-05 15:30] LABS: UR EPITHELIAL CELLS <10 /HPF (<10); URINE BACTERIA NEGATIVE /HPF; URINE RBC <10 /HPF (<10)
[2019-08-05] MEDS: XANAX PO PRN (21:16)
[2019-08-05] MEDS: TRICOR PO SCH (21:20)
[2019-08-05] MEDS: ASPIRIN EC PO SCH (21:20)
[2019-08-06] MEDS: LOPRESSOR IV PRN ×2 (01:02→08:43)
[2019-08-06] MEDS: ATROVENT NEB INH SCH ×4 (03:49→22:48)
[2019-08-06] MEDS: XOPENEX NEB INH SCH ×4 (03:49→22:48)
[2019-08-06] MEDS: CARDIZEM PO SCH ×2 (04:10→08:21)
[2019-08-06] MEDS: ZOSYN 3.375 GM in NS 50 ML IV SCH ×4 (04:28→22:28)
[2019-08-06] MEDS: PRILOSEC PO SCH (05:59)
[2019-08-06] MEDS: HUMULIN R SUBQ SCH ×4 (05:59→21:40)
[2019-08-06] MEDS: CYMBALTA PO SCH (08:20)
[2019-08-06] MEDS: PREDNISONE PO SCH (08:20)
[2019-08-06] MEDS: ELIQUIS PO SCH ×2 (08:20→21:00)
[2019-08-06] MEDS: NORCO-10 PO PRN ×3 (08:21→22:25)
[2019-08-06] MEDS: ALDACTONE PO SCH ×2 (08:21→21:00)
[2019-08-06] MEDS: LASIX PO SCH (08:21)
[2019-08-06] MEDS: DIFLUCAN PO SCH (08:21)
[2019-08-06] MEDS: METAMUCIL POWDER PACKET PO SCH (08:23)
[2019-08-06] MEDS: NEURONTIN PO SCH ×2 (08:25→21:40)
[2019-08-06] MEDS: MONISTAT-7 VAG CREAM VAG SCH (08:26)
[2019-08-06] MEDS: PULMICORT INH SCH ×2 (10:57→22:48)
[2019-08-06] MEDS: CARDIZEM CD PO SCH (12:01)
[2019-08-06] MEDS: LOPRESSOR PO SCH ×2 (12:02→21:39)
--- NOTE | 2019-08-06 12:46 | EKG Report ---
Test Performed on : 08/06/2019 11:31:08 AM Test Reason : afib Blood Pressure : / mmHG Vent. Rate : 097 BPM Atrial Rate : 156 BPM P-R Int : 000 ms QRS Dur : 096 ms QT Int : 322 ms P-R-T Axes : 000 -14 123 degrees QTc Int : 408 ms Atrial fibrillation. with premature ventricular or aberrantly conducted complexes. Nonspecific ST and T wave abnormality Abnormal ECG When compared with ECG of 29-JUL-2019 07:52, Previous ECG has undetermined rhythm, needs review Criteria for Septal infarct are no longer present Nonspecific T wave abnormality, worse in Lateral leads Confirmed by Susana MCLAIN, Vitor ([id number]) on 08/09/2019 8:22:36 AM
--- NOTE | 2019-08-06 14:41 | PROGRESS NOTE ---
DATE: 08/06/2019 Ms. Oropeza states she is breathing better, feels better but she did have a rate that went above 160 again last night. She remains afebrile, temperature 98 degrees, pulse 92, respirations 14, blood pressure 104/69. Pupils are equal and round. Lungs are clear in all lung ward. Cardiovascular. Regular rate without murmur or S3. Urine output is 3300 mL. ASSESSMENT AND PLAN: 1. Acute respiratory failure secondary to pneumonia. Continue oxygen supplementation and bronchodilators, antibiotics. 2. Escherichia coli bacteremia, suspect urinary tract infection. 3. Acute systolic congestive heart failure with pulmonary edema, this is improved. 4. Chronic atrial fibrillation, rate still working on control rate but for the most part she is staying below 120. 5. Diabetes mellitus type 2. 6. Chronic obstructive pulmonary disease exacerbation. Review of orders, on Lopressor 25 mg q.12, Xanax 0.5 mg at bedtime p.r.n., Eliquis 5 mg b.i.d., aspirin 81 mg a day, Pulmicort 0.5 mg inhalation q.12 hours, Cardizem CD 240 mg a day, Cymbalta 60 mg p.o. daily, Tricor 48 mg p.o. at bedtime, Diflucan 100 mg daily, Lasix 40 mg a day, gabapentin 600 mg b.i.d., hydrocodone 10 mg q.6 hours p.r.n., ipratropium bromide 0.5 mg q.6 hours, omeprazole 40 mg a day, prednisone 40 mg a day, Metamucil 1 scoop daily, spironolactone 25 mg p.o. b.i.d. and Zosyn 3.375 g IV q.6 hours. Review of lab on the I think we are going to repeat some lab in the morning. cc: Carlos De Jesus MD
[2019-08-06] MEDS ORDERED: CALMOSEPTINE OINTMENT TOP PRN (18:04)
[2019-08-06] MEDS: ASPIRIN EC PO SCH (21:00)
--- NOTE | 2019-08-06 21:31 | PROGRESS NOTE ---
DATE: 08/06/2019 SUBJECTIVE: Patient continues without chest discomfort or shortness of breath. She continues with atrial fibrillation with mild tachycardia. OBJECTIVE: Vital signs: Blood pressure 104/69, heart rate 92 to 110 and irregular. Oxygen saturation 94% on room air. Neck: There is no significant jugular distention. Chest: Clear to auscultation. Cardiac Exam: Reveals an irregular rate and rhythm without appreciable murmur or gallop. There is no evidence of peripheral edema. Twelve lead EKG demonstrates atrial fibrillation with heart rate of 97 beats per minute and nonspecific ST and T-wave abnormality. IMPRESSION: 1. Recent acute respiratory failure, improving. 2. Urinary tract infection with Escherichia coli with associated bacteremia. 3. Chronic tendency for congestive heart failure with preserved left ventricular ejection fraction. The patient does not appear volume overloaded presently. 4. Paroxysmal atrial fibrillation. Patient with mild tendency for tachycardia in atrial fibrillation presently. She expresses preference not to pursue cardioversion at this time and prefers to be managed with rate control and anticoagulation. 5. Chronic obstructive pulmonary disease. 6. Type 2 diabetes mellitus. RECOMMENDATIONS: 1. Consolidate Cardizem dosing to once daily dosing with 240 mg daily. 2. Add low-dose beta-mylene, metoprolol. 3. Continue anticoagulation with Eliquis. cc: Rickey Mesa MD
[2019-08-06] MEDS: TRICOR PO SCH (21:40)
[2019-08-06] MEDS: XANAX PO PRN (21:46)
[2019-08-07] MEDS: XOPENEX NEB INH SCH ×2 (03:38→11:00)
[2019-08-07] MEDS: ATROVENT NEB INH SCH ×2 (03:38→11:00)
[2019-08-07] MEDS: ZOSYN 3.375 GM in NS 50 ML IV SCH ×2 (06:32→10:39)
[2019-08-07] MEDS: PRILOSEC PO SCH (06:35)
[2019-08-07 06:38] LABS: BASO# 0.01 X1000 (0.0-0.2); BASO% 0.1 % (0.0-0.8); EOS# 0.36 X1000 (0.0-0.7); EOS% 3.3 % (0.0-10.0); HEMATOCRIT 31.3 % (37.0-47.0); HEMOGLOBIN 8.9 g/dL (12.0-16.0); IMM GRAN# 0.03 X1000 (0.0-0.04); IMM GRAN% 0.3 % (0.0-0.5); LYMPH# 3.93 X1000 (1.2-3.4); LYMPH% 36.4 % (20.5-51.1); MCH 25.5 PG (27-31); MCHC 28.4 g/dL (33-37); MCV 89.7 FL (81-99); MONO# 0.99 X1000 (0.11-0.59); MONO% 9.2 % (1.7-9.3); MPV 11.3 FL (7.4-10.4); NEUT# 5.49 X1000 (1.4-6.5); NEUT% 50.7 % (42.2-75.2); PLT 441 X1000 (130-400); RBC 3.49 XMIL (4.2-5.4); RDW 13.8 % (11.5-14.5); WBC 10.81 X1000 (4.8-10.8)
[2019-08-07] MEDS: HUMULIN R SUBQ SCH ×2 (06:41→11:35)
[2019-08-07 07:23] LABS: AGAP 11; BUN 23 mg/dL (8-22); CALCIUM 9.5 mg/dL (8.8-10.2); CHLORIDE 97 mmol/L (98-107); COSMO 288; CREATININE 0.7 mg/dL (0.5-0.9); ESTIMATED GFR > 60; GLUCOSE 125 mg/dL (70-104); POTASSIUM 4.8 mmol/L (3.5-5.1); SODIUM 142 mmol/L (136-145); TCO2 34 mmol/L (25-35)
[2019-08-07] MEDS: CARDIZEM CD PO SCH (08:25)
[2019-08-07] MEDS: LASIX PO SCH (08:26)
[2019-08-07] MEDS: LOPRESSOR PO SCH (08:26)
[2019-08-07] MEDS: ELIQUIS PO SCH (08:26)
[2019-08-07] MEDS: ALDACTONE PO SCH (08:26)
[2019-08-07] MEDS: METAMUCIL POWDER PACKET PO SCH ×2 (08:26→08:28)
[2019-08-07] MEDS: CYMBALTA PO SCH (08:26)
[2019-08-07] MEDS: PREDNISONE PO SCH (08:26)
[2019-08-07] MEDS: NEURONTIN PO SCH (08:26)
[2019-08-07] MEDS: DIFLUCAN PO SCH (08:26)
[2019-08-07] MEDS: MONISTAT-7 VAG CREAM VAG SCH (08:27)
[2019-08-07 08:33] VITALS: BP 118/79
[2019-08-07] MEDS: NORCO-10 PO PRN (09:56)
[2019-08-07] MEDS ORDERED: PNEUMOVAX 23 IM ONE (10:44)
[2019-08-07] MEDS ORDERED: FLU VACCINE IM ONE (10:44)
--- NOTE | 2019-08-07 10:44 | DISCHARGE SUMMARY ---
ADMISSION DATE: 07/29/2019 DISCHARGE DATE: 08/07/2019 HOSPITAL COURSE: This is a 68-year-old female with past medical history of COPD. She does not have home oxygen. She has a history of atrial fib, congestive heart failure, rheumatoid arthritis, diabetes. She is immunocompromised and takes Humira for her rheumatoid arthritis. Her last dose was 2 days before admission. The day before admission in the morning at 0730 hours, her son came home they ate and then he noticed she went to lay down, was having chills and they went back to check on her again. She was throwing up. He gave her some Theraflu and 30 minutes later checked on her again. She was having rigors, became delirious. States that she had a cough and strange phlegm. Denies any urinary symptoms. Urinalysis showed a UTI. She is going to get broad- spectrum antibiotics and received some Lasix in the emergency room. Put on a Cardizem drip because she had atrial fibrillation with rapid ventricular rate. PAST MEDICAL HISTORY: 1. Systolic congestive heart failure. 2. COPD on home oxygen. 3. Rheumatoid arthritis on Humira, of which she received her last dose 2 days before admission. 4. Immunocompromise secondary to Humira for rheumatoid arthritis. 5. Atrial fibrillation. 6. Fibromyalgia. 7. Chronic anxiety. 8. Diabetes mellitus type 2. ADMISSION DIAGNOSES: 1. Atrial fibrillation with rapid ventricular response. She was put on Cardizem drip and some Levophed because of hypotension and intravenous fluids. 2. Concern about sepsis, underlying infection. She denied any symptoms of urinary tract infection. Put on broad-spectrum antibiotics. 3. Acute respiratory failure with underlying chronic obstructive pulmonary chronic obstructive pulmonary disease. [place] she had chronic obstructive pulmonary disease exacerbation. She was not retaining CO2, but she has had hypoxia and she was put on BiPAP. 4. Urinary tract infection. She denies any symptoms of painful urination, but treating empirically. 5. Metabolic infectious encephalopathy. 6. Acute systolic congestive heart failure with some pulmonary venous hypertension on chest x- ray. 7. Diabetes mellitus type 2. 8. Rheumatoid arthritis. 9. Chronic anxiety. X-RAYS: 1. She had a CT of the abdomen and pelvis and chest. She had small ground-glass infiltrates, severe atherosclerosis, prominent fatty infiltration of the liver, colonic diverticulosis and prominent atherosclerosis. Chest x-ray repeated on 07/30: Mild pulmonary edema. Her atrial fib rate was controlled. Cardiology was asked to see. They felt she had acute hypoxemic respiratory failure, suspected pneumonia. 2. Paroxysmal atrial fibrillation. History of previous transesophageal echocardiogram conversion in the past in January. The patient had recurrence of atrial fibrillation, rapid ventricular rate, and was on intravenous Cardizem. 3. Possible associated pulmonary edema. Her B-natriuretic peptide level was elevated. Chest x- ray was not very impressive. 4. Chronic obstructive pulmonary disease. 5. Diabetes mellitus type 2. 6. Rheumatoid arthritis. 7. Diverticular disease of the colon. The patient showed steady improvement. 8. Chest x-ray repeated, saw some patchy infiltrates, more prominent on the right. These continue to improve. 9. She had an x-ray of her hip and pelvis. No evidence of acute bony abnormality. She was complaining of pain in the lateral left hip and she was stronger and feeling better. Rate appeared to be better controlled. LABORATORY DATA: White count had come down. Her electrolytes look good. Sodium 142, potassium 4.8, chloride 97. BUN 23, creatinine 0.7. So, I think she would like to go home and get home health. DISCHARGE MEDICATIONS: Let her have some Xanax 0.5 mg at bedtime p.r.n., Eliquis 5 mg b.i.d., aspirin 81 mg a day, Pulmicort inhaler 0.5 mg inhalation q. 12 hours, Cardizem CD 240 mg a day, Cymbalta 60 mg a day, Tricor 48 mg at bedtime, Diflucan 100 mg p.o. daily--give her another 3 days of that, Lasix 40 mg a day, Neurontin 600 mg b.i.d., [place] 10 one q. 6 hours p.r.n., Atrovent nebulizer--I think we can stop, Xopenex nebulized treatment--we can stop. Lopressor 25 mg p.o. q. 12 hours. I have given her miconazole vaginal cream which she can continue, omeprazole 40 mg a day, prednisone 40 mg daily, Metamucil 1 pack a day, Aldactone 25 mg b.i.d. CULTURES: Note that her cultures reveal urine grew out Escherichia coli. Blood cultures 1/2 grew out Escherichia coli, and this was negative for extended spectrum beta lactamase producing, sensitive to Levaquin. So I will let her go home with 500 mg of Levaquin p.o. daily for another week. cc: Carlos De Jesus MD
[2019-08-07] MEDS: PULMICORT INH SCH (11:00)
== END 2019-08-07 12:42 | disposition home health service (06) | DRG 871 ==
LOC: P.ED 00:34 → SUATTDRO 14:21 → ICU 14:21 → 2N 07-31 16:55
PROVIDERS: ATTEND Emergency Medicine

== ENCOUNTER 2019-09-07 15:15 | Inpatient (IN) ==
[2019-09-07] MEDS ORDERED: LASIX IV ONE (15:46)
--- NOTE | 2019-09-07 16:25 | Diag Imaging Result Doc PS360 ---
EXAM: CHEST-PORTABLE HISTORY: shortness of breath TECHNIQUE: Single view COMPARISON: 08/19/2019 FINDINGS: The lungs are well expanded. The heart is mildly prominent. The vessels are mildly distended. There are no infiltrates. No effusion identified. IMPRESSION: Mild pulmonary edema with mild cardiomegaly Electronically signed by Ronnie Collins 09/07/2019 4:22 PM
[2019-09-07 16:29] LABS: ESTIMATED GFR > 60
[2019-09-07 16:45] LABS: AGAP 17; ALBUMIN 4.2 g/dL (3.5-5.0); ALKALINE PHOSPHATASE 55 U/L (32-104); BUN 24 mg/dL (8-22); CALCIUM 9.4 mg/dL (8.8-10.2); CHLORIDE 90 mmol/L (98-107); COSMO 279; CREATININE 0.9 mg/dL (0.5-0.9); GLUCOSE 288 mg/dL (70-104); GOT 34 U/L (10-30); GPT 28 U/L (10-36); POTASSIUM 5.7 mmol/L (3.5-5.1); SODIUM 132 mmol/L (136-145); TCO2 26 mmol/L (25-35); TOTAL PROTEIN 6.4 g/dL (6.3-8.3)
[2019-09-07] MEDS ORDERED: LOVENOX 1 MG/KG SUBQ ONE (17:01)
[2019-09-07 17:24] LABS: BASO# 0.04 X1000 (0.0-0.2); BASO% 0.3 % (0.0-0.8); EOS# 0.06 X1000 (0.0-0.7); EOS% 0.4 % (0.0-10.0); HEMATOCRIT 30.4 % (37.0-47.0); HEMOGLOBIN 8.7 g/dL (12.0-16.0); IMM GRAN# 0.03 X1000 (0.0-0.04); IMM GRAN% 0.2 % (0.0-0.5); LYMPH# 2.17 X1000 (1.2-3.4); LYMPH% 14.2 % (20.5-51.1); MCH 25.3 PG (27-31); MCHC 28.6 g/dL (33-37); MCV 88.4 FL (81-99); MONO# 0.95 X1000 (0.11-0.59); MONO% 6.2 % (1.7-9.3); MPV 11.1 FL (7.4-10.4); NEUT% 78.7 % (42.2-75.2); PLT 321 X1000 (130-400); RBC 3.44 XMIL (4.2-5.4); RDW 14.7 % (11.5-14.5); WBC 15.25 X1000 (4.8-10.8)
--- NOTE | 2019-09-07 17:28 | PROVIDER DOCUMENTATION ---
This chart was entered by Jaclyn Ramirez Scribe, acting as scribe for Letha Okeefe MD. HPI-Respiratory General - General Chief Complaint: Weakness Stated Complaint: WEAK, SOB Time Seen by Provider: 09/07/19 15:36 Source: patient, RN/MD (dr weathers) Allergies/Adverse Reactions: Patient Allergies Allergy/AdvReac Type Severity Reaction Status Date / Time No Known Allergies Allergy Verified 07/29/19 02:00 Home Medications: Home Medication List Medication Instructions Recorded Confirmed Last Taken Type Aspirin [Aspir-Low] 81 mg PO HS 11/20/17 09/07/19 07/29/19 History Fenofibrate [Tricor] 40 mg PO HS 11/20/17 09/07/19 07/29/19 History Furosemide 40 mg PO DAILY 11/20/17 07/30/19 07/29/19 History Gabapentin 600 mg PO BID 11/20/17 07/30/19 07/29/19 History Omeprazole 40 mg PO DAILY@0600 11/20/17 07/30/19 07/29/19 History Alprazolam 0.5 mg PO QHS 10/21/18 09/07/19 07/28/19 History Duloxetine [Cymbalta] 60 mg PO DAILY 10/21/18 09/07/19 07/29/19 History Hydrocodone Bit/Acetaminophen 1 tab PO TID PRN PRN 02/14/19 09/07/19 07/28/19 History [Hydrocodon-Acetaminophn 10-325] Apixaban [Eliquis] 5 mg PO BID #60 tab 02/19/19 09/07/19 07/29/19 Rx Budesonide [Pulmicort] 0.5 mg INH RTQ12H 30 Days #1 neb 08/07/19 09/07/19 U nknown Rx Diltiazem C.d. [Cardizem Cd] 240 mg PO DAILY 30 Days #30 cap 08/07/19 09/07/19 Unknown Rx Metoprolol [Lopressor] 25 mg PO Q12HR 30 Days #60 tab 08/07/19 09/07/19 Unknown Rx Flecainide Acetate 1 tab PO DAILY 09/07/19 Unknown History Folic Acid 1 mg PO DAILY 09/07/19 09/07/19 Unknown History Losartan [Cozaar] 50 mg PO DAILY 09/07/19 09/07/19 Unknown History Metformin [Glucophage] 500 mg PO BID 09/07/19 Unknown History Multivitamin [Multivitamins] 1 tab PO DAILY 09/07/19 Unknown History Potassium Chloride 8 meq PO DAILY 09/07/19 09/07/19 Unknown History Vitamin B Complex [B Complex] 1 tab PO DAILY 09/07/19 09/07/19 Unknown History - History of Present Illness-Resp Nature of Presenting Problem: 68 yowf presents to the ed from dr weathers's office for sob, fatigue and balance being off. pt on exam is nontoxic in appearance Quality of Pain: reports: none Severity in ED: reports: moderate Onset/Duration: reports: this morning Timing: reports: still present, intermittent Context: reports: recent URI Cough Quality/Degree: reports: mild, dry cough Episode Frequency: frequent episodes Current Respiratory Medication Therapy: Initiated see nurses note Modifying Factors: improves with: sitting upright. worse with: exertion, lying down Associated Symptoms: reports: cough, shortness of breath. denies: fever/chills, wheezing Similar Symptoms Previously?: Yes (hx of chf copd) Recently seen or treated by another doctor?: Yes (PMD) Review of Systems - Adult - REVIEW OF SYSTEMS - ADULT Constitutional: reports: see HPI, fatique Eyes: reports: no symptoms reported Ears, Nose, Mouth & Throat: reports: no symptoms reported Cardiovascular: reports: see HPI, orthopnea. denies: chest pain, palpitations, syncope Respiratory: reports: see HPI, cough, dyspnea on exertion, shortness of breath. denies: wheezing Gastrointestinal: denies: diarrhea, nausea, vomiting Genitourinary: reports: no symptoms reported Musculoskeletal: reports: no symptoms reported Integumentary: reports: no symptoms reported Neurological: reports: see HPI, loss of balance. denies: dizziness/vertigo, headache/migraines, slurred speech Psychiatric: reports: no symptoms reported Endocrine: reports: no symptoms reported Hematologic/Lymphatic: reports: no symptoms reported Allergic/Immunologic: reports: no symptoms reported All Other Systems: Reviewed and Negative Past History - Adult - PAST MEDICAL HISTORY-ADULT Review of Records: reports: Old Records Reviewed, Nursing Assessment Review, Medications Reviewed, Social history reviewed & non-contributory. Major Childhood Illnesses: reports: denies history Cardiovascular: reports: A-Fib, CHF, HTN, hyperlipidemia, MD Respiratory: reports: asthma, COPD Gastrointestinal: reports: GERD Obstetrical/Gynecological: reports: denies history Genitourinary: reports: denies history Musculoskeletal: reports: arthritis (RA), fibromyalgia, other (DJD) Neurological: reports: denies history Psychiatric: reports: anxiety Endocrine/Immune: reports: Diabetes Other Conditions: reports: denies history - PRIOR SURGERIES/PROCEDURES Surgical/Procedure History: reports: colonoscopy, orthopedic (extremity) - IMMUNIZATION STATUS Childhood Immunizations: See Nurse Assessment Flu Vaccine: See Nurse Assessment - FAMILY HISTORY Family History: reviewed, not pertinent - SOCIAL HISTORY Smoking: quit greater than 1 year Substance Use: denies Alcohol Use Frequency: never Living Situation: family Physical Exam-General - PHYSICAL EXAM-ADULT Initial Vital Signs Reviewed: Yes - CONSTITUTIONAL General Appearance: alert, mild distress, obese - EYES Eyes: PERRL/EOMI, pink conjunctivae - HEAD, EARS, NOSE, MOUTH & THROAT HENMT: moist mucous membranes - NECK Neck: full range of motion - RESPIRATORY Respiratory: chest non-tender, respiratory distress (mild), crackles, rales. negative: wheezing - CARDIOVASCULAR Cardiovascular: JVD (mild), irregularly irregular (afib) - CHEST (BREASTS) Chest/Breast: deferred - GASTROINTESTINAL (ABDOMEN) Abdominal Exam: normal bowel sounds, soft, tenderness (generalized) - GENITOURINARY Female Genitalia/Pelvic Exam: deferred Rectal Exam: deferred Hemoccult Exam: deferred - LYMPHATIC Lymphatic: no adenopathy - MUSCULOSKELETAL Back Exam: no CVA tenderness, no vertebral tenderness Extremity: normal gait, normal capillary refill, pelvis stable, swelling (BLE) - SKIN Integumentary: normal turgor, warm/dry - NEUROLOGIC Neurologic: grossly normal - PSYCHIATRIC Psych/Mental Status: normal mood/affect, normal thought content, normal thought process, oriented x 3 - HEART Score HEART Score: History: Slightly Suspicious HEART Score: ECG: Non-Specific Repolarization Disturbance/LBBB/PM HEART Score: Age: > or = 65 Years HEART Score: Risk Factors for Atherosclerotic Disease: 1 or 2 Risk Factors HEART Score: Troponin: 1-3x Normal Limit Total HEART Score:: 5 Progress - PLAN OF CARE/RESULTS Progress/Plan/Lab Results: Vital Signs - 8 hr 09/07/19 15:24 Temperature 96.9 F L Pulse Rate 64 Respiratory Rate 18 Blood Pressure 91/56 O2 Sat by Pulse Oximetry 89 L Laboratory Results - last 24 hr 09/07/19 09/07/19 09/07/19 15:50 15:50 15:50 WBC 15.25 H RBC 3.44 L Hgb 8.7 L Hct 30.4 L MCV 88.4 MCH 25.3 L MCHC 28.6 L RDW Std Deviation 14.7 H Plt Count 321 MPV 11.1 H Immature Gran % (Auto) 0.2 Neut % (Auto) 78.7 H Lymph % (Auto) 14.2 L [place] % (Auto) 6.2 Eos % (Auto) 0.4 Baso % (Auto) 0.3 Immature Gran # (Auto) 0.03 Neut # (Auto) 12.00 H Lymph # (Auto) 2.17 [place] # (Auto) 0.95 H Eos # (Auto) 0.06 Baso # (Auto) 0.04 Sodium 132 L Potassium 5.7 H Chloride 90 L Carbon Dioxide 26 Anion Gap 17 BUN 24 H Creatinine 0.9 Estimated GFR/1.73 m2 > 60 BUN/Creatinine Ratio 27 Glucose 288 H Calculated Osmolality 279 Calcium 9.4 Total Bilirubin 0.70 AST 34 H ALT 28 Alkaline Phosphatase 55 Troponin T High Sens [id number] Pept 1963 H Total Protein 6.4 Albumin 4.2 Globulin 2.0 Albumin/Globulin Ratio 2.0 09/07/19 15:50 WBC RBC Hgb Hct MCV MCH MCHC RDW Std Deviation Plt Count MPV Immature Gran % (Auto) Neut % (Auto) Lymph % (Auto) [place] % (Auto) Eos % (Auto) Baso % (Auto) Immature Gran # (Auto) Neut # (Auto) Lymph # (Auto) [place] # (Auto) Eos # (Auto) Baso # (Auto) Sodium Potassium Chloride Carbon Dioxide Anion Gap BUN Creatinine Estimated GFR/1.73 m2 BUN/Creatinine Ratio Glucose Calculated Osmolality Calcium Total Bilirubin AST ALT Alkaline Phosphatase Troponin T High Sens 43 H* [id number]-B-Rbburgsoetb Pept Total Protein Albumin Globulin Albumin/Globulin Ratio Orders Category Date Time Status Saline Loc NOW Care 09/07/19 15:44 Active CHEST-PORTABLE [RAD] Stat Exams 09/07/19 15:45 Completed CBC WITH DIFF [HEME] Stat Lab 09/07/19 15:50 Completed COMPREHENSIVE METABOLIC PANEL [CHEM] Stat Lab 09/07/19 15:50 Completed PRO B-NATRIURETIC PEPTIDE Stat Lab 09/07/19 15:50 Completed TROPONIN T HIGH SENSITIVITY Stat Lab 09/07/19 15:50 Completed Enoxaparin 1 mg/kg [Lovenox 1 mg/kg] Med 09/07/19 17:01 Discontinued 1 each SUBQ NOW ONE Furosemide [Lasix] Med 09/07/19 15:46 Discontinued 80 mg IV NOW ONE Result Diagrams: 09/07/19 15:50 09/07/19 15:50 - EKG 1 Time of EKG reading by physician:: 16:30 EKG Read and Signed by:: Letha Okeefe EKG Interpretation (*Must complete 3 of following elements*): Abnormal Rate: 66 Rhythm: afib [place]: normal QRS: other (low voltage qrs) NM Interval: normal ST Wave: normal Comments: cannot rule out anterior infarct, age undetermined - XRAY 1 XRAY: Bilateral XRAY Study: Chest Impression: See EMR Report (EXAM: CHEST-PORTABLE HISTORY: shortness of breath TECHNIQUE: Single view COMPARISON: 08/19/2019 FINDINGS: The lungs are well expanded. The heart is mildly prominent. The vessels are mildly distended. There are no infiltrates. No effusion identified. IMPRESSION: Mild pulmonary edema with mild cardiomegaly Electronically signed by Ronnie Collins 09/07/19 4:22 PM 09/07/191621 Interpreting Physician: Ronnie Collins MD Dictated Date/Time: 09/07/191621 cc: Letha Okeefe MD; Anurag Weathers MD) - CONSULTS/PCP/HOSPITALIST Notification #1 *Consult/PCP/Hospitalist*: Dr Guerrero Time Discussed: 17:31 Consult Disposition: Admit Departure - Departure Date of Disposition Decision: 09/07/19 Time of Disposition Decision: 17:27 DIAGNOSIS: Elevated troponin Pulmonary edema Qualifiers: Chronicity: chronic Qualified Code(s): J81.1 - Chronic pulmonary edema Disposition: ADMITTED INPATIENT 09 Certified Medical Emergency: Emergent Condition: Critical Referrals and Follow-Ups: Anurag Weathers MD [Primary Care Provider] - - Critical Care Note This patient required my direct & personal management of CC.: Yes Attestation - Physician/ TAWNYA Attestation Patient care was provided by Advanced Practice Provider:: No The physician spent face to face time with patient:: Yes Advanced Practice Provider documentation review:: Supervising physician onsite and consulted in the evaluation and care of this patient. The physician did have a face to face encounter with the patient. This chart was documented by the indicated scribe, (Jaclyn Ramirez Scribe) and accurately reflects the services I performed and decisions made by me, Letha Okeefe MD, as attested by the provider's signature.
[2019-09-07] MEDS ORDERED: MORPHINE IV ONE (17:43)
[2019-09-07] MEDS ORDERED: ZOFRAN IV ONE (17:43)
[2019-09-07] MEDS ORDERED: ZOFRAN IV PRN ×2 (18:13→18:22)
[2019-09-07] MEDS ORDERED: TYLENOL PO PRN ×2 (18:13→18:22)
[2019-09-07] MEDS ORDERED: LASIX IV SCH (18:30)
[2019-09-07] MEDS ORDERED: LOVENOX SUBQ ONE (19:42)
[2019-09-07] MEDS: DUONEB (A & A) INH PRN (20:41)
[2019-09-07] MEDS: PULMICORT INH SCH (20:42)
[2019-09-07] MEDS: NORCO-10 PO PRN (21:54)
[2019-09-07] MEDS: ELIQUIS PO SCH (21:54)
[2019-09-07] MEDS: XANAX PO SCH (21:54)
[2019-09-07] MEDS: LOPRESSOR PO SCH (21:54)
[2019-09-07] MEDS: ASPIRIN EC PO SCH (21:55)
--- NOTE | 2019-09-07 22:24 | HISTORY AND PHYSICAL ---
CHIEF COMPLAINT: Shortness of breath. HISTORY OF PRESENT ILLNESS: The patient is a very pleasant 68-year-old female who states she has a known history of congestive heart failure, but notes that she has not been in the hospital before due to these symptoms. She states that over the past 2 days she has had increasing shortness of breath, fatigue, increasing falling, increased swelling in her lower extremities. She states that she went to Dr. Weathers's office earlier today and was told to come to the ER due to her symptoms. She notes she cannot lay down flat in the bed. She has to sit up. States she has been in a recliner for the past few days. Denies any chest pain, palpitations. Denies any fevers or chills. ALLERGIES: No known drug allergies. MEDICATIONS: Aspirin, TriCor 40, Lasix 40, gabapentin 600, omeprazole 40, alprazolam 0.5, Cymbalta 60, hydrocodone 10 t.i.d. p.r.n., Eliquis 5 b.i.d., Pulmicort, Cardizem CD 240, Lopressor 25 q.12 hours, flecainide, folic acid, Cozaar 50, metformin 500 b.i.d. FAMILY HISTORY: Noncontributory. SOCIAL HISTORY: Patient does not smoke, although, does have a long history of smoking. She stopped greater than a year ago. Does not drink or use illicit substances. Lives at home and is cared for by her family. PAST MEDICAL HISTORY: Significant for atrial fibrillation, congestive heart failure, hypertension, hyperlipidemia, history of coronary artery disease status post MA, history of COPD, reflux, chronic fibromyalgia, arthritis, DJD, history of diabetes, anxiety. SURGICAL HISTORY: She has had a colonoscopy and extremity surgery. REVIEW OF SYSTEMS: As noted above, increased cough, congestion or shortness of breath, increased fatigue and falling. Denies any true syncope. Denies headaches, blurred vision, change in vision. Denies any focalized numbness, tingling, or weakness in her extremities; although, does have increased edema over the last couple of days in her bilateral lower extremities despite taking Lasix. Denies any dysuria frequency. Denies constipation, melena, hematochezia. PHYSICAL EXAMINATION: VITAL SIGNS: Reviewed. Temp 96 degrees, pulse 64, respiratory rate 18, BP 91/56, sat 89% on room air. GENERAL: Patient is awake. Currently, she is in no distress, although, she is sitting propped up on the bed with her feet hanging over the side. HEENT: Normocephalic. NECK: Supple. CARDIOVASCULAR: Irregular rhythm, currently rate controlled. CHEST: Decreased breath sounds bilaterally with mild wheezing. ABDOMEN: Soft, obese. EXTREMITIES: 2+ edema in bilateral lower extremities. Moves all extremities. NEUROLOGIC: No focal changes. She is awake, alert, oriented x3. LABS: White count 15, potassium 5.7. Sodium 132, glucose 288. ASSESSMENT: 1. Pulmonary edema consistent with congestive heart failure. 2. Elevated troponin, although, this is likely secondary to her pulmonary edema. 3. Hyperkalemia. 4. Hyponatremia. 5. Diabetes with hyperglycemia. 6. Leukocytosis of undetermined origin. 7. Atrial fibrillation, rate controlled. 8. Hypotension. 9. Hypoxemia. 10. Known coronary artery disease. 11. Hyperlipidemia. 12. Chronic obstructive pulmonary disease. 13. Fibromyalgia. PLAN: We are going to admit patient to the hospital, place her on telemetry, IV Lasix. Follow her sodium as well as her potassium. We will use breathing treatments as needed. Restart her home medications. We will follow her white count. She does not have any symptoms of infection currently. Therefore, we are not going to start antibiotics. We will check an echocardiogram in the morning to rule out myocardial infarction tonight and we will follow. cc: Preet Guerrero MD
[2019-09-08] MEDS: TRICOR PO SCH ×2 (01:13→20:49)
[2019-09-08] MEDS: LASIX IV SCH ×2 (04:22→17:29)
[2019-09-08 05:00] LABS: URINE SOURCE CLEAN CATCH
[2019-09-08 05:13] LABS: BILIRUBIN URINE NEGATIVE (NEGATIVE); BLOOD URINE NEGATIVE (NEGATIVE); COLOR YELLOW; GLUCOSE URINE NEGATIVE (NEGATIVE); KETONE URINE NEGATIVE (NEGATIVE); LEUKOCYTES URINE LARGE (NEGATIVE); NITRITE URINE NEGATIVE (NEGATIVE); PROTEIN URINE NEGATIVE (NEGATIVE); SP GRAVITY URINE 1.011; TURBIDITY URINE HAZY (CLEAR); UR EPITHELIAL CELLS <10 /HPF (<10); URINE BACTERIA 2+ /HPF; URINE RBC <10 /HPF (<10); URINE WBC TNTC /HPF (<10); UROBILINOGEN URINE NORMAL (NORMAL)
[2019-09-08 06:23] LABS: HEMATOCRIT 28.7 % (37.0-47.0); HEMOGLOBIN 8.1 g/dL (12.0-16.0); MCH 24.8 PG (27-31); MCHC 28.2 g/dL (33-37); MCV 87.8 FL (81-99); MPV 10.9 FL (7.4-10.4); RBC 3.27 XMIL (4.2-5.4); RDW 14.8 % (11.5-14.5); WBC 10.01 X1000 (4.8-10.8)
[2019-09-08 07:05] LABS: ALBUMIN 3.6 g/dL (3.5-5.0); CALCIUM 9.6 mg/dL (8.8-10.2); CREATININE 1.1 mg/dL (0.5-0.9); POTASSIUM 4.8 mmol/L (3.5-5.1); TOTAL BILIRUBIN 0.4 mg/dL (0.20-1.00); TOTAL PROTEIN 6.4 g/dL (6.3-8.3)
[2019-09-08] MEDS: KLOR-CON PO SCH (09:48)
[2019-09-08] MEDS: CYMBALTA PO SCH (09:48)
[2019-09-08] MEDS: CARDIZEM CD PO SCH (09:48)
[2019-09-08] MEDS: ELIQUIS PO SCH ×2 (09:48→20:49)
[2019-09-08] MEDS: LOPRESSOR PO SCH ×2 (09:48→20:49)
[2019-09-08] MEDS: FOLIC ACID PO SCH (09:48)
[2019-09-08] MEDS: COZAAR PO SCH (09:48)
[2019-09-08] MEDS: VICON-C PO SCH (09:48)
[2019-09-08] MEDS: NORCO-10 PO PRN ×3 (09:54→22:05)
[2019-09-08] MEDS: DUONEB (A & A) INH PRN ×2 (11:38→15:22)
[2019-09-08] MEDS: PULMICORT INH SCH ×2 (11:38→20:15)
--- NOTE | 2019-09-08 12:27 | EKG Report ---
Test Performed on : 09/07/2019 4:30:57 PM Test Reason : ER Blood Pressure : / mmHG Vent. Rate : 066 BPM Atrial Rate : 234 BPM P-R Int : 000 ms QRS Dur : 096 ms QT Int : 424 ms P-R-T Axes : 000 -22 -24 degrees QTc Int : 444 ms Atrial fibrillation. Low voltage QRS Cannot rule out Anteroseptal infarct (cited on or before 17-FEB-2019) Abnormal ECG When compared with ECG of 19-AUG-2019 14:11, Vent. rate has decreased BY 39 BPM Questionable change in initial forces of Septal leads T wave inversion now evident in Inferior leads Nonspecific T wave abnormality now evident in Anterior leads Nonspecific T wave abnormality, improved in Lateral leads Unconfirmed Result
[2019-09-08] MEDS ORDERED: ATARAX PO PRN (13:46)
--- NOTE | 2019-09-08 14:02 | ECHO REPORT ---
ORDER DATE: 09/07/2019 INTERPRETING PHYSICIAN: Dr. Sj Breaux. ECHOCARDIOGRAPHIC MEASUREMENTS: 1. Interventricular septum: 1.4 cm. 2. Left ventricular posterior wall: 1.4 cm. 3. Diastolic diameter: 5.2 cm. 4. Left atrium: 4.0 cm. 5. Aorta: 3.0 cm. SUMMARY OF THE 2-DIMENSIONAL IMAGIN. Technically suboptimal study. 2. Atrial fibrillation was noted. 3. Normal left ventricular cavity size. Concentric left ventricular hypertrophy. Estimated ejection fraction of 45%. 4. There is biatrial enlargement. 5. There is moderate to severe mitral regurgitation. 6. Peak velocity across the aortic valve less than 2 m/sec. There is no aortic stenosis or regurgitation. 7. There is mild tricuspid regurgitation. Peak velocity across the tricuspid valve was 3 m/sec. 8. Pulmonary artery systolic pressure of 50 mmHg. 9. There is no pericardial effusion. cc: MD Preet Melgar MD
[2019-09-08] MEDS: XANAX PO SCH (20:49)
[2019-09-08] MEDS: ASPIRIN EC PO SCH (20:49)
--- NOTE | 2019-09-09 01:25 | PROGRESS NOTE ---
DATE: 09/08/2019 SUBJECTIVE: The patient notes that she is feeling better. She is still having some shortness of breath and cough, but does feel a little bit better than she did yesterday. OBJECTIVE: Temperature 98 degrees, pulse 92, respiratory rate 18, BP 103/51.General: The patient is in mild current respiratory distress. HEENT: Normocephalic. Neck supple. Cardiovascular: Regular rate. Chest: Decreased but equal breath sounds. No current crackles. Abdomen soft, nondistended. Extremities: Moves all extremities. She has less edema in her lower extremities. ASSESSMENT: 1. Hyperkalemia, improving. 2. Hyponatremia. 3. Diabetes with hyperglycemia. 4. Pulmonary edema consistent with congestive heart failure. 5. Elevated troponin, likely secondary to pulmonary edema. 6. Atrial fibrillation, currently rate-controlled. 7. Hypertension. 8. Chronic hypoxemia. 9. Known coronary artery disease. PLAN: Continue the patient in the hospital. Continue Lasix, supportive care. Echocardiogram is pending. We will follow. cc: Preet Guerrero MD
[2019-09-09] MEDS: LASIX IV SCH (04:42)
[2019-09-09 06:14] LABS: HEMATOCRIT 32.1 % (37.0-47.0); HEMOGLOBIN 8.9 g/dL (12.0-16.0); MCH 24.5 PG (27-31); MCHC 27.7 g/dL (33-37); MCV 88.4 FL (81-99); MPV 11.2 FL (7.4-10.4); RBC 3.63 XMIL (4.2-5.4); RDW 14.7 % (11.5-14.5); WBC 9.26 X1000 (4.8-10.8)
[2019-09-09 06:23] LABS: AGAP 11; ALBUMIN 3.8 g/dL (3.5-5.0); ALKALINE PHOSPHATASE 55 U/L (32-104); BUN 25 mg/dL (8-22); CALCIUM 9.8 mg/dL (8.8-10.2); CHLORIDE 95 mmol/L (98-107); COSMO 284; CREATININE 0.7 mg/dL (0.5-0.9); ESTIMATED GFR > 60; GLUCOSE 167 mg/dL (70-104); GOT 15 U/L (10-30); GPT 21 U/L (10-36); POTASSIUM 4.5 mmol/L (3.5-5.1); SODIUM 138 mmol/L (136-145); TCO2 33 mmol/L (25-35); TOTAL PROTEIN 6.9 g/dL (6.3-8.3)
[2019-09-09] MEDS ORDERED: LASIX PO SCH (09:00)
[2019-09-09] MEDS: KLOR-CON PO SCH (09:32)
[2019-09-09] MEDS: FOLIC ACID PO SCH (09:32)
[2019-09-09] MEDS: VICON-C PO SCH (09:32)
[2019-09-09] MEDS: ELIQUIS PO SCH (09:32)
[2019-09-09] MEDS: NORCO-10 PO PRN (09:32)
[2019-09-09] MEDS: CARDIZEM CD PO SCH (09:33)
[2019-09-09] MEDS: COZAAR PO SCH (09:33)
[2019-09-09] MEDS: LOPRESSOR PO SCH (09:33)
[2019-09-09] MEDS: CYMBALTA PO SCH (09:33)
[2019-09-09] MEDS: DUONEB (A & A) INH PRN (11:22)
[2019-09-09] MEDS: PULMICORT INH SCH (11:22)
[2019-09-09 11:34] VITALS: BP 140/73
--- NOTE | 2019-09-10 17:24 | DISCHARGE SUMMARY ---
ADMISSION DATE: 09/07/2019 DISCHARGE DATE: 09/09/2019 ADDENDUM: Patient seen and examined by myself. Full note dictated and discussed with nurse practitioner. On discharge, patient is awake, alert. She is in no distress. Notes that she is feeling tremendously better. Does have an EF of 45% with moderate to severe mitral regurgitation. She was admitted with hyperkalemia at 5.7, discharged normal at 4.5. Admitted with hyponatremia at 132, discharged normal at 138. Does have hyperglycemia in a patient with known diabetes. Her atrial fibrillation was rate controlled throughout the hospital. Discussed with her that she needs follow up outpatient with Cardiology, so they can follow closely her mitral regurgitation. She voices understanding and is ready to go home. We are going to discharge her home with [facility]ie and will follow. cc: Preet Guerrero MD
== END 2019-09-09 14:38 | disposition home health service (06) | DRG 292 ==
LOC: P.ED 15:15 → P.MEDSURG 19:47
PROVIDERS: ATTEND Family Medicine